=== PATIENT | female | born 1980 | race Caucasian/White ===

== ENCOUNTER 2020-07-11 13:10 | Outpatient (CLI) | payer OTHER, SELFPAY ==
--- NOTE | ~2020-07-11 | XR_ITS ---
EXAMINATION: XR foot LT min 3V, XR heel LT min 2V DATE: 07/11/2020 13:31 INDICATION: Left foot and heel pain post fall down stairs TECHNIQUE: 1. Dorsoplantar, two oblique and lateral views of the left foot were obtained. 2. Axial and lateral views of the left heel/calcaneus were obtained. COMPARISON: None. FINDINGS: Alignment is normal. No fracture. Joint spaces are normal. Soft tissues are unremarkable. No left ank le joint effusion. IMPRESSION: 1. Negative left foot and heel radiographs. Reviewed, dictated and finalized at location B. IMPRESSION: 1. Negative left foot and heel radiographs.
== END 2020-07-11 13:11 | disposition home or self-care (01) ==
PROVIDERS: PCP Internal Medicine; Visit Provider Internal Medicine
DX: M79.672 Pain in left foot (principal)
CPT/HCPCS: 73630; 73650

== ENCOUNTER 2021-07-04 09:27 | Outpatient (CLI) | payer OTHER, SELFPAY ==
--- NOTE | ~2021-07-04 | XR_ITS ---
EXAMINATION: XR knee RT 3V DATE: 07/04/2021 09:57 INDICATION: Right knee pain TECHNIQUE: Three views of the right knee were obtained. COMPARISON: None. FINDINGS: Alignment is normal. No fracture or osteochondral lesion. Joint spaces are normal with no e rosions. No joint effusion/synovitis. There is medial soft tissue swelling of the knee. IMPRESSION: 1. Medial soft tissue swelling of the knee without acute osseous abnormality. Reviewed, dictated and finalized at location B. 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
== END 2021-07-04 09:28 | disposition home or self-care (01) ==
LOC: CHSIMG 09:31
PROVIDERS: PCP Internal Medicine; Visit Provider Internal Medicine
DX: M25.561 Pain in right knee (principal)
CPT/HCPCS: 73562

== ENCOUNTER 2021-07-11 17:04 | Outpatient (RCR) | payer OTHER, SELFPAY ==
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
--- NOTE | 2021-08-14 17:42 | PTOPEVAL ---
Thank you for referring Demar Rondon to [facility].? The patient is scheduled to be seen for therapy? ____x/week for ___ weeks. Please review, sign, date and return this plan of care CACHORRO. I agree with and certify that the following plan of care is medically necessary. Referring Physician Date Admitting Provider: Attending Provider: Jaime Moran MD Referring Provider: *PT Outpatient Evaluation Start: 07/11/21 17:13 Freq: Status: Active Protocol: Document 08/14/21 17:00 [facility] (Rec: 08/14/21 17:41 [facility] [id number]) Therapy Assessment Status Assessment Status Assessment Status Re-evaluation Outpatient Past Medical History Cardiovascular History Hx Other Cardiac Disorders Yes: vaso spasms Musculoskeletal History Hx Other Musculoskeletal Disorders Yes: knee sprain, shoulder and foot surg Hematological History Hx Other Hematological Disorders Yes: immuno-defieciency Evaluation Information Problem Diagnosis R knee pain, ACL tear Onset 06/12/21 Subjective Information patient reports she had an MRI Query Text:As Reported By Patient/ of the R knee. she reports Family the results show a partial tear of the ACL. she reports she is instructed by her ortho to continue skilled PT 3x weekly for 2 more weeks prior to determining if she will need surgery. Pain Assessment Timing of Pain Assessment Timing of Pain Assessment Assessment Pain Scale Pain Scale Used Numeric (1 - 10) Self Report Pain Assessment Right Knee(s) Reported Pain Level 5 Greatest Pain Intensity 9 Pain Score Pain Score 5: Self Report Interventions Used Interventions Used By Clinicians Activity or ADL's,Education, Elevation,Exercise,Ice, Medication,Rest,Taping Lower Extremity Range of Motion General Lower Extremity Range of Motion Gross Lower Extremity Range of Motion 0-128 degrees arom R knee Comments mobility Lower Extremity Muscle Strength Testing General Lower Extremity Strength Gross Lower Extremity Strength 4+/5 R hip flexion 4/5 R hip abduction 4+/5 R knee flexion 5/5 R knee extension Muscle Length Testing Muscle Length Testing Left Hamstring Length 5 Query Text:(90 - 90 Position) Right Hamstring Length 5 Query Text:(90 - 90 Position) Palpation Assessment Palpation Palpation tenderness noted to the inferior R patella and the
--- NOTE | 2021-08-28 12:52 | PTOPEVAL ---
Thank you for referring Demar Rondon to [facility]. Please review, sign, date and return this plan of care CACHORRO. I agree with and certify that the following plan of care is medically necessary. Referring Physician Date Admitting Provider: Attending Provider: Jaime Moran MD Referring Provider: *PT Outpatient Evaluation Start: 07/11/21 17:13 Freq: Status: Active Protocol: Document 08/28/21 11:14 [facility] (Rec: 08/28/21 11:52 [facility] [email or web address]) Therapy Assessment Status Assessment Status Assessment Status Progress Outpatient Past Medical History Cardiovascular History Hx Other Cardiac Disorders Yes: vaso spasms Musculoskeletal History Hx Other Musculoskeletal Disorders Yes: knee sprain, shoulder and foot surg Hematological History Hx Other Hematological Disorders Yes: immuno-defieciency Evaluation Information Problem Diagnosis R knee pain, ACL tear Onset 06/12/21 Subjective Information Pt. reports that the right leg Query Text:As Reported By Patient/ is stronger. She reports Family that she still has episodes of the right knee giving out, but much less frequent. She states that pain is mild currently, but will incresae with activity. She reports that she does return to the doctor today. Pain Assessment Timing of Pain Assessment Timing of Pain Assessment Pre-Treatment Pain Scale Pain Scale Used Numeric (1 - 10) Self Report Pain Assessment Right Knee(s) Reported Pain Level 2 Lowest Pain Intensity 2 Greatest Pain Intensity 8 Pain Score Pain Score 2: Self Report Interventions Used Interventions Used By Clinicians Activity or ADL's,Exercise Lower Extremity Range of Motion General Lower Extremity Range of Motion Gross Lower Extremity Range of Motion 0-130 degrees right knee AROM Comments Lower Extremity Muscle Strength Testing General Lower Extremity Strength Gross Lower Extremity Strength -bilateral hip flexion 5/5 -bilateral hip abduction 4+/5 -bilateral knee flexion 5/5 -bilateral knee extension 5/5 -bilateral ankle dorsiflexion 5/5 -Performed single limb leg press test with pt. demonstrating 1 rep max of 240 # on the left and 250# on the right General Exercise General E
== END 2021-09-11 14:00 | disposition home or self-care (01) ==
LOC: CHSPT 17:04
PROVIDERS: PCP Internal Medicine; Visit Provider Internal Medicine
DX: M25.561 Pain in right knee (principal)
CPT/HCPCS: 97014; 97035; 97110; 97112; 97140; 97161; G0283

== ENCOUNTER 2021-07-12 12:26 | Outpatient (CLI) | payer OTHER, SELFPAY ==
--- NOTE | ~2021-07-12 | XR_ITS ---
EXAMINATION: XR chest 2V 07/12/2021 13:07 INDICATION: Dyspnea PROCEDURE: 2 view chest COMPARISON: 03/25/2019 FINDINGS: The lungs are clear. The cardiomediastinal silhouette is within normal limits. There are no pleural effusions. There is no pneumothorax suspected. IMPRESSION: 1: NO ACUTE CARDIOPULMONARY DISEASE. Reviewed, dictated and finalized at location B.
[2021-07-12 12:48] LABS: Basophils Absolute Auto 0.04 K/mm3 (0.00-0.10); Basophils Percent Auto 0.5 % (0.0-1.0); Eosinophils Absolute Auto 0.13 K/mm3 (0.02-0.50); Eosinophils Percent Auto 1.6 % (1.0-6.0); Hematocrit 43.6 % (35.0-49.0); Hemoglobin 14.9 g/dL (12.0-15.0); Immature Granulocyte Absolute 0.03 K/mm3 (0.00-0.00); Immature Granulocyte Percent A 0.4 % (0.0-0.0); Lymphocytes Absolute Auto 1.96 K/mm3 (1.10-4.50); Lymphocytes Percent Auto 24.2 % (18.0-42.0); Mean Corpuscular HGB Conc 34.2 g/dL (32.0-36.0); Mean Corpuscular Hemoglobin 31.4 pg (27.0-31.0); Mean Platelet Volume 10.7 fl (9.2-11.8); Monocytes Absolute Auto 0.74 K/mm3 (0.10-0.90); Monocytes Percent Auto 9.1 % (2.0-11.0); Neutrophils Absolute Auto 5.2 K/mm3 (1.7-7.2); Neutrophils Percent Auto 64.2 % (50.0-70.0); Platelet Count Result 263 K/mm3 (150-420); Red Blood Count 4.74 M/mm3 (4.20-5.40); Red Cell Distribution Width 11.7 % (11.6-14.4); White Blood Count 8.1 K/mm3 (4.8-10.8)
[2021-07-12 13:09] LABS: D Dimer 0.53 mg/L (0.19-0.50)
[2021-07-12 13:17] LABS: Alanine Aminotransferase 29 U/L (14-59); Albumin Level 3.9 g/dL (3.4-5.0); Alkaline Phosphatase 55 U/L (46-116); Anion Gap 9 mmol/L (8-16); Aspartate Amino Transferase 22 U/L (15-37); Bilirubin,Total 0.3 mg/dL (0.00-1.00); Blood Urea Nitrogen 7 mg/dL (7-18); CRP 1.3 mg/dL (0.0-0.9); Calcium 8.9 mg/dL (8.5-10.1); Carbon Dioxide 26 mmol/L (21-32); Chloride 104 mmol/L (98-108); Creatine Kinase 50 U/L (26-192); Estimated Glomerular Filt Rate > 60; Glucose 96 mg/dL (70-99); Osmolality Calculated 286 mOsm/kg (285-295); Potassium 3.4 mmol/L (3.5-5.1); Sodium 139 mmol/L (136-145); Total Protein 7.3 g/dL (6.4-8.2); Troponin I 5.5 ng/L (0.00-60.4)
== END 2021-07-12 12:27 | disposition home or self-care (01) ==
LOC: CHSLAB 12:28
PROVIDERS: PCP Internal Medicine; Visit Provider Nurse Practitioner Family
DX: R07.9 Chest pain, unspecified (principal); R06.02 Shortness of breath; J06.9 Acute upper respiratory infection, unspecified
CPT/HCPCS: 36415; 71046; 80053; 82550; 82553; 84484; 85025; 85380; 86140

== ENCOUNTER 2021-07-12 13:40 | Emergency (ER) | payer OTHER, SELFPAY ==
--- NOTE | ~2021-07-12 | CT_ITS ---
EXAMINATION: CTA chest PE protocol DATE: 07/12/2021 15:05 INDICATION: Shortness of breath and cough. Chest pain. TECHNIQUE: Computed tomography angiography (CTA) of the chest was performed with 100 mL Omnipaque-350 intravenous contrast timed to evaluate the pulmonary arteries. Coronal maximum intensity projection 3D-reconstructions were created by the technologist. Automated exposure control and iterative reconst ruction technique were employed. The dose-length product was 254.83 mGy-cm. COMPARISON: None. FINDINGS: There is mild scarring at the lung apices. No pleural effusion. The heart size is normal. N o pericardial effusion. There is no pulmonary embolus. There is mild thoracic spondylosis. IMPRESSION: 1. No pulmonary embolus. Reviewed, dictated and finalized at location A. IMPRESSION: 1. No pulmonary embolus.
[2021-07-12 13:45] VITALS: BP 135/93; PULSE 82; RESP 16; TEMP 36.6; O2SAT 99
--- NOTE | 2021-07-12 13:52 | ED.SOB ---
HPI - SOB/Dyspnea General Chief Complaint: Shortness of Breath/Dyspnea Stated Complaint: Elevated D Dimer Time Seen by Provider: 07/12/21 13:53 Source: patient and RN notes reviewed Mode of arrival: ambulatory Limitations: no limitations History of Present Illness HPI Narrative: Patient went to her primary care physician this morning for a cough. She had a workup done as an outpatient with some blood work and was found to have a very mildly elevated D-dimer. She sent to the emergency room to be evaluated for possible pulmonary embolism. She says that the rest of her family has been having a viral illness as well. She was concerned that her cough and illness had turned into pneumonia. She has been vaccinated for COVID. MD elicited complaint: shortness of breath (mild) and cough Pertinent past history: pneumonia Onset (ago): day(s) (4) Context: recent illness Timing: intermittent Severity: mild Exacerbating factors: exertion Relieving factors: nothing Associated symptoms: denies other symptoms Treatment prior to arrival: none Related Data Home oxygen amount: none Home Medications Medication Instructions Recorded Confirmed diltiazem HCl 120 mg PO DAILY 07/12/21 07/12/21 magnesium oxide 400 mg PO BID 07/12/21 07/12/21 meloxicam 15 mg PO DAILY 07/12/21 07/12/21 sumatriptan succinate 100 mg PO ONCE PRN 07/12/21 07/12/21 Allergies Allergy/AdvReac Type Severity Reaction Status Date / Time acetaminophen [Vicodin] Allergy Intermediate hives Verified 07/12/21 13:58 hydrocodone [Vicodin] Allergy Intermediate hives Verified 07/12/21 13:58 Review of Systems Review of Systems: All systems reviewed & are unremarkable except as noted in HPI and below PMFSH Past Medical History Medical History (Updated 07/12/21 @ 15:31 by Fox Ugarte MD) GERD (gastroesophageal reflux disease) (09/05/11) Migraine with aura (02/21/11) Recurrent sinusitis (02/21/11) Family History Family History Brother Family history of seizure disorder Mother Family history of type 2 diabetes mellitus Hypertension Exam Const: General: healthy appearing, no acute distress and alert Nutritional Appearance: well nourished Orientation/consciousness: patient oriented x3 Other: Female nurse in room during examination. HENMT: Head: normal to inspection Ears: external ears normal Eyes: Conjunctivae: conjunctivae normal Pupils: Equal, round and reactive pupils present EOM: EOMs intact bilaterally Neck: Neck: normal visual inspection Resp: Effort & Inspection: normal respiratory effort Auscultation: clear to auscultation bilaterally Cardio: Rate: regular rate Rhythm: regular rhythm GI: GI Palp: Yes Soft to palpation and No Tenderness to palpation present (GI) Auscultation: normal bowel sounds Back/Spine/Pelvis: Cervical Spine: cervical ROM normal Thoracic/Lumbar Spine: thoraco-lumbar ROM normal Skin: General skin exam: normal color Rashes: no rashes Neuro: General: patient oriented x3, moves all extremities, no meningeal signs, no focal motor deficits and CN's II-XI intact bilaterally Speech: normal speech Gait exam (Neuro): Normal gait present MDM - SOB/Dyspnea Medical Records Attestation: I reviewed the patient's medical records. Lab Data Attestation: I reviewed the patient's lab results. Imaging Data Radiologist's impression: no pulmonary embolism Discharge Plan Discharge Clinical Impression: Bronchitis Patient Disposition: Home, Self-Care Condition: Stable Instructions: Acute Bronchitis (ED), Antibiotic Form Additional Instructions: can use [id number] cough and cold medication as needed. Prescriptions: No Action sumatriptan succinate 100 mg Tablet 100 mg PO ONCE PRN (Reason: Pain) RF: 0 meloxicam 15 mg tablet 15 mg PO DAILY RF: 0 diltiazem HCl 240 mg capsule,extended release 24 hr 120 mg PO DAILY RF: 0 magnesium oxide 400 mg
[2021-07-12 15:35] VITALS: BP 127/88; PULSE 74; RESP 16; TEMP 36.4; O2SAT 99
== END 2021-07-12 15:40 | disposition home or self-care (01) ==
PROVIDERS: Emergency Provider Emergency Medicine; PCP Internal Medicine
DX: J40 Bronchitis, not specified as acute or chronic (principal)
CPT/HCPCS: 71275; 99284; Q9967

== ENCOUNTER 2021-08-03 06:44 | Outpatient (CLI) | payer OTHER, SELFPAY ==
--- NOTE | ~2021-08-03 | MR_ITS ---
EXAMINATION: MR knee RT wo con DATE: 08/03/2021 08:42 INDICATION: Right knee pain, twisting injury on 06/12/2021, medial and lateral pain. TECHNIQUE: Magnetic resonance imaging (MRI) of the knee was performed without intravenous contrast. S equences included axial PD-weighted FS FSE, coronal PD-weighted FSE and PD-weighted FS FSE, sagittal PD-weighted FSE, and sagittal T2-weighted FS FSE. COMPARISON: None. FINDINGS: Medial compartment: Meniscus intact. Cartilage intact. Lateral compartment: Meniscus intact. Cartilage intact. Patellofemoral compartment: Cartilage intact. Extensor mechanism and retinaculum intact. Ligaments and tendons: High signal within an otherwise intact appearing ACL. The PCL, LCL, and MCL are normal and intact. Fluid: No significant joint effusion. Osseous/other: Focal marrow edema, deep to the tibial spines. IMPRESSION: 1. Partial ACL tear. 2. Reactive marrow change versus contusion deep to the tibial spines. Reviewed, dictated and finalized at location K.
== END 2021-08-03 06:45 | disposition home or self-care (01) ==
PROVIDERS: PCP Internal Medicine; Visit Provider Internal Medicine
DX: M25.561 Pain in right knee (principal)
CPT/HCPCS: 73721

== ENCOUNTER 2022-03-25 16:54 | Outpatient (RCR) | payer OTHER, SELFPAY ==
--- NOTE | 2022-03-25 18:11 | PTOPEVAL1 ---
Assessment and note entered by Lis Hernandez DPT Evaluation Information Assessment Status Evaluation Diagnosis R knee pain, s/p MPFL reconstruction Onset 03/06/2022 Subjective Information Pt reports that in 05/2021 she was standing and felt a twisting in her R knee with a pop. Her pain did not improve over time and with PT. After awhile, they performed an MRI and saw medial patellofemoral pain syndrome. After awhile, she felt that surgery was the best option for pain. She has been taking some oxycodin for pain. She reports that pain has been high lately. She was using a cane after surgery but has since stopped for over a week. She still reports some popping in the knee. She notes that her knee still feels unstable after this. She reports no restrictions listed by her MD, but she reports she has been instructed to always wear her brace when weight bearing. She reports that her knee and ankle have been swollen since surgery. She reports most pain when turning her foot in. Pain is felt along the medial knee and over the knee cap, and these are where her incisions are. Her goal is to improve stability as needed for hiking, camping, and running. Reported Pain Level Pain Score 5: Self Report Assessment PT Clinical Summary Pt presents to PT s/p R knee surgery with R knee pain and demonstrates decreased range of motion in flexion, decreased strength, increased knee edema , and antalgic gait. These deficits make it more challenging for her to move her knee as needed for walking, lifting her leg, and using stairs. She was provided with an HEP focused on improving strength and mobility within her tolerance. She will benefit from skilled PT to facilitate symptom relief, improve the aforementioned impairments, and return to functional and recreational activities. Plan of Care Interventions Electrical Stimulation,Gait Training,Hot Pack/Cold Pack,Intermittent Compression,Manual Therapy, Neuro Re-education,Therapeutic Activities, Therapeutic Exercise PT Services Indicated Yes Treatment Frequency and 3x week for 12 visits Duration These treatments will address the objective and functional deficits as defined above. The patient will be advanced safely and appropriately in order for the patient to progress towards his/her prior level of function. Additional exercises will
--- NOTE | 2022-05-06 09:01 | PTOPPROG ---
Assessment and note entered by Liliya Dickerson, PT Evaluation Information Assessment Status Progress Diagnosis R knee pain, s/p MPFL reconstruction Onset 03/06/22 Subjective Information Demar reports she had her right knee give out on 05/02/21 after leaving her PT appointment. She states she was squatting down to brick picker a quarter that she dropped and as she descended her knee gave out and she ended up bending her knee more than she has since surgery. She reports her knee has had more pain all weekend and she had to sit a lot and use ice a lot. She rates pain 7/10 currently and it was a 9/10 over the weekend. She had to use pain medication over the weekend as well. Assessment PT Clinical Summary Demar Rondon has completed 12 skilled PT visits following a right MPFL reconstruction performed on 03/06/22. She is reporting an increase in right knee pain since 05/02/22 when she went to brick picker a quarter from the ground and her knee gave out causing it to bend more than she had been since surgery. She objectively demonstrates good stability with valgus and varus stress testing and lachmann testing of the right knee. She is demonstrating increased tenderness on the right patella tendon and continues to have tenderness at the medial knee joint incision site. She also has had a slight regression in right knee AROM today secondary to the increased pain, right knee AROM is improved overall though. She does demonstrate steady improvements in right LE strength but still is limited in the quadriceps and the gluteals. She also continues to have deficits in gait, dynamic right single limb balance, and functional strength. She will continue to benefit from skilled PT to further address thes physical and functional limitations. She will see her surgeon again on 05/14/22. Plan of Care Interventions Electrical Stimulation,Hot Pack/Cold Pack,Patient/ Caregiver Educati,Therapeutic Activities, Therapeutic Exercise PT Services Indicated Yes Treatment Frequency and 2 times a week for 12 more visits Duration These treatments will address the objective and functional deficits as defined above. The patient will be advanced safely and appropriately in order for the patient to progress towards his/her prior level of function. Additional exercises will be introduced and as well as a comprehensive home exercise program upon discharge, if needed, ?to ensure cash
--- NOTE | 2022-06-16 15:57 | PTOPREEVAL ---
Assessment and note entered by Nirmala Garcia DPT Evaluation Information Assessment Status Re-evaluation Diagnosis R knee pain, s/p MPFL reconstruction Onset 03/06/22 Subjective Information Demar reports that she was standing and turned directions on 05/21/22 and sprained her MCL. She reports that she had a lot of soreness afterwards but has improved since then. She reports improvement with squatting, standing up and walking. She continues to report difficulty with stair navigation. She saw MD today who recommended continued PT until follow up in one month. Reported Pain Level Pain Score 2: Self Report Assessment PT Clinical Summary Demar Rondon has completed 10 during [facility] re- evaluation period from 05/07/22-06/16/22. She had an increase in pain following MCL sprain on 05/21/22 but has reported improvements since. She demonstrates improved R knee flexion and extension but continues to demonstrate pain and decreased strength impairing her ability to navigate stairs and ambulate prolonged periods. She would benefit from continued skilled PT to address impairments and return to PLOF. Plan of Care Interventions Electrical Stimulation,Hot Pack/Cold Pack,Patient/ Caregiver Educati,Therapeutic Activities, Therapeutic Exercise PT Services Indicated Yes Treatment Frequency and 2 times a week for 10 more visits Duration These treatments will address the objective and functional deficits as defined above. The patient will be advanced safely and appropriately in order for the patient to progress towards his/her prior level of function. Additional exercises will be introduced and as well as a comprehensive home exercise program upon discharge, if needed, ?to ensure carryover of functional gains achieved in the clinic. This treatment plan has been reviewed and agreement upon by the patient.
== END 2022-06-26 09:38 | disposition still patient (30) ==
LOC: CHSPT 16:54
PROVIDERS: PCP Internal Medicine; Visit Provider Nurse Practitioner Family
DX: Z48.89 Encounter for other specified surgical aftercare (principal); M22.2X1 Patellofemoral disorders, right knee
CPT/HCPCS: 97014; 97016; 97110; 97112; 97116; 97140; 97161; 97530; G0283

== ENCOUNTER 2022-07-01 07:56 | Outpatient (RCR) | payer OTHER, SELFPAY ==
--- NOTE | 2022-07-22 09:19 | PTOPEVAL1 ---
Assessment and note entered by JT File, PT Evaluation Information Assessment Status Re-evaluation Diagnosis R knee pain, s/p MPFL reconstruction Onset 03/06/22 Subjective Information patient reports her pain a 3/10 today. she continues to use the R knee brace. patient reports she has the most pain and issues with going up and down steps, running on the treadmill, pivoting in the kitchen while doing the dishes, and straightening it out fully without help. patient has orders to continue therapy per the surgeon. Reported Pain Level Pain Score 3: Self Report Assessment PT Clinical Summary mrs. thomas presents to skilled PT with continued pain in the R knee. she continues to display weakness in the R knee compared to L knee with manual muscle testing, and with functional strength testing on the leg press. she presents with full R knee mobility, but pain/tenderness with palpation of the patella and medial knee. she also presents with positive special tests that may indicate a meniscus involvement now from one of her post surgcial falls/re-injury. she presents with orders from her surgeon to continue skilled PT, and due to her weakness, pain, and abnormal gait, she would benefit from continued skilled PT Plan of Care Interventions Gait Training,Manual Therapy,Neuro Re-education, Patient/Caregiver Educati,Therapeutic Activities, Therapeutic Exercise PT Services Indicated Yes Treatment Frequency and continue skilled PT 2x weekly for 8 more visits Duration These treatments will address the objective and functional deficits as defined above. The patient will be advanced safely and appropriately in order for the patient to progress towards his/her prior level of function. Additional exercises will be introduced and as well as a comprehensive home exercise program upon discharge, if needed, ?to ensure carryover of functional gains achieved in the clinic. This treatment plan has been reviewed and agreement upon by the patient.
== END 2022-08-18 16:59 | disposition home or self-care (01) ==
LOC: CHSPT 07:56
PROVIDERS: PCP Internal Medicine; Visit Provider Nurse Practitioner Family
DX: Z48.89 Encounter for other specified surgical aftercare (principal); M22.2X1 Patellofemoral disorders, right knee
CPT/HCPCS: 97014; 97110; 97112; 97530; G0283

== ENCOUNTER 2022-07-28 14:19 | Outpatient (CLI) | payer OTHER, SELFPAY ==
--- NOTE | ~2022-07-28 | XR_ITS ---
EXAMINATION: XR sinus min 3V INDICATION: Sinus pressure TECHNIQUE: Five views of the paranasal sinuses are obtained. COMPARISON: None available FINDINGS: The frontal sinuses are small in size. The remaining paranasal sinuses appear to be well ae rated. No definite sinus opacification is identified. There are 3 mm of leftward deviation of the hector al septum. The facial bones are unremarkable. The orbits appear normal. IMPRESSION: 1. No definite sinus disease detected. If there is high clinical suspicion for sinus disease, further evaluation with CT of the sinuses is recommended. Reviewed, dictated and finalized at location B.
== END 2022-07-28 14:20 | disposition home or self-care (01) ==
LOC: CHSIMG 14:21
PROVIDERS: PCP Internal Medicine; Visit Provider Internal Medicine
DX: J32.9 Chronic sinusitis, unspecified (principal)
CPT/HCPCS: 70220

== ENCOUNTER 2022-12-03 09:30 | Outpatient (RCR) | payer OTHER, SELFPAY ==
[2022-11-11 10:54] VITALS: BMI 30.6
[2022-12-03 09:30] VITALS: BMI 29.5
[2022-12-03 09:56] VITALS: BMI 29.5
== END 2023-02-02 12:54 | disposition home or self-care (01) ==
LOC: ANHDMC 09:30
PROVIDERS: PCP Internal Medicine; Visit Provider Internal Medicine
DX: R63.5 Abnormal weight gain (principal); Z71.3 Dietary counseling and surveillance
CPT/HCPCS: 97802; 97803

== ENCOUNTER 2022-12-15 10:50 | Outpatient (CLI) | payer OTHER, SELFPAY ==
--- NOTE | ~2022-12-15 | XR_ITS ---
EXAMINATION: XR ankle LT min 3V DATE: 12/15/2022 11:20 INDICATION: Left ankle pain TECHNIQUE: Anteroposterior, lateral, mortise, and additional oblique view of the ankle were obtained. COMPARISON: None. FINDINGS: There is lateral soft tissue swelling of ankle. Bone alignment is normal. There is no fract ure. The joint spaces are normal. IMPRESSION: 1. Lateral soft tissue swelling of ankle without acute osseous abnormality. Reviewed, dictated and finalized at location A.
--- NOTE | ~2022-12-15 | XR_ITS ---
EXAMINATION: XR knee RT 3V DATE: 12/15/2022 11:20 INDICATION: Anterior right knee pain. Fall. TECHNIQUE: 3 views of right knee were obtained. COMPARISON: None. FINDINGS: Bone alignment is normal. No fracture. There is mild osteoarthritis of medial and patellofe moral compartments characterized by tiny osteophytes. No joint space narrowing. No knee joint effusio n. IMPRESSION: 1. Mild right knee osteoarthritis. Reviewed, dictated and finalized at location A.
== END 2022-12-15 10:51 | disposition home or self-care (01) ==
PROVIDERS: PCP Internal Medicine; Visit Provider Internal Medicine
DX: S93.402A Sprain of unspecified ligament of left ankle, initial encounter (principal); S89.81XA Other specified injuries of right lower leg, initial encounter; M17.11 Unilateral primary osteoarthritis, right knee; M79.89 Other specified soft tissue disorders
CPT/HCPCS: 73562; 73610

== ENCOUNTER 2023-01-02 13:04 | Outpatient (RCR) | payer OTHER, SELFPAY ==
--- NOTE | 2023-01-09 08:38 | OPREHPOC ---
Outpatient Therapy Plan of Care This is a Multidisciplinary Plan of Care that may contain components documented by all disciplines (PT, OT, and ST.) PT Problem 1 PT Problem #1 Knowledge Deficit PT Goal 1 Goal 1. Patient to demonstrate independence with HEP to improve progress made in PT. Target Visit 4 PT Problem 2 PT Problem #2 Impaired Range of Motion PT Goal 1 Goal 1. Patient to achieve 130 degrees of active R knee flexion to improve ability to squat to ground to reach objects on floor. 2. Patient to improve bilateral hamstring length to lacking no more than 5 degrees to improve flexibility for reaching to don socks. Target Visit 8 PT Problem 3 PT Problem #3 Impaired Strength PT Goal 1 Goal 1. Patient to achieve at least 4+/5 R knee extension strength to improve ability to climb stairs. 2. Patient to achieve 5/5 R knee flexion and R hip flexion strength to improve ability to lift heavy duffel bag for camping trips. Target Visit 8 PT Problem 4 PT Problem #4 Pain PT Goal 1 Goal 1. Patient to report pain as 2/10 or less at worst with all activities to allow for return to daily life in home and community. Target Visit 8 PT Problem 5 PT Problem #5 Impaired Functional Mobil PT Goal 1 Goal 1. Patient to improve LEFS score to no more than 20% to improve quality of life. 2. Patient to report ability to climb stairs into camper without difficulty or increase in pain. 3. 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 Target Visit 8
--- NOTE | 2023-01-09 08:39 | PTOPEVAL1 ---
Assessment and note entered by JT File, PT Evaluation Information Assessment Status Evaluation Diagnosis R knee pain Onset 12/14/22 Subjective Information Patient reports she had knee surgery last February replacing the MPFL. She notes that a few weeks ago she tripped coming down the stairs of her camper, reinjuring the R knee and twisting the L ankle. She notes she visited the doctor following the injury, she recieved x-rays for both the R knee and L ankle showing no fractures. She reports swelling underneath the knee cap and along the incision from surgery. She notes that before the injury, she had no R knee pain and was able to walk at a fast pace for 30 minutes without issues. Since reinjury, she notes difficulty with stair climbing, standing for periods of time, bending the knee, and making quick turns. She notes discomfort when the knee remains in a straight position for too long. Her L ankle has been improving since the injury and she notes this does not limit her. She has been using ice and pain medications to treat the knee pain. Reported Pain Level Pain Score 2: Self Report Assessment PT Clinical Summary Mrs. Rondon is a 42 y/o female who presents to skilled PT to address R knee pain. Patient demonstrates limitations in R knee ROM, LE strength, and flexibility. She reports difficulty with daily activities such as walking longer distances, remaining in static knee positions, and with climbing stairs. Patient currently has 39% functional decline as assessed by the LEFS. She previously had surgery to repair the MPFL in the knee in 2021. Appropriate to continue skilled PT to address strength, ROM, and functional deficits in order to improve patient's quality of life and return to daily activities. Plan of Care Interventions Electrical Stimulation,Gait Training,Hot Pack/Cold Pack,Manual Therapy,Neuro Re-education,Patient/ Caregiver Educati,Therapeutic Activities, Therapeutic Exercise PT Services Indicated Yes Treatment Frequency and 2x/week for 8 visits Duration These treatments will address the objective and functional deficits as defined above. The patient will be advanced safely and appropriately in order for the patient to progress towards his/her prior level of function. Additional exercises will be introduced and as well as a comprehensive home exercise program upon discharge, if nee
--- NOTE | 2023-01-29 11:56 | PTOPPROG ---
Assessment and note entered by Liliya Dickerson, PT Evaluation Information Assessment Status Progress Diagnosis R knee pain Onset 12/14/22 Subjective Information Demar Rondon reports her right knee feels tight and swollen still. She also continues to have more pain at night which makes it hard to sleep. She still notes difficulty bending the right knee and that makes stairs difficult. She is able to walk on her treadmill at a slower pace for 15-30 minutes. She is able to ride a recumbent bike at home for 40 minutes. She feels she has improved 20 % overall since initiating PT. Assessment PT Clinical Summary Demar Rondon has completed 8 skilled PT sessions for right knee pain. She is reporting very little change in right knee symptoms since initiating PT. She feels it has improved 20% overall but she still has difficulty with stairs, bending the right knee, walking more than 30 minutes, and with swelling. She objectively demonstrates improved right knee hip flexion and knee flexion and extension strength however, she continues to have tenderness at the right patella tendon and medial knee joint line, pain with active knee flexion, decreased right knee flexion AROM, decreased right knee and hip strength, impaired gait, and pain with the Apley's compression test in internal rotation. She will be put on hold from formal PT and was instructed to follow up with her referring physician. Plan of Care Interventions Electrical Stimulation,Hot Pack/Cold Pack,Manual Therapy,Neuro Re-education,Therapeutic Activities, Therapeutic Exercise PT Services Indicated Yes Treatment Frequency and The patient is on hold until follow up with Duration physician. These treatments will address the objective and functional deficits as defined above. The patient will be advanced safely and appropriately in order for the patient to progress towards his/her prior level of function. Additional exercises will be introduced and as well as a comprehensive home exercise program upon discharge, if needed, ?to ensure carryover of functional gains achieved in the clinic. This treatment plan has been reviewed and agreement upon by the patient.
--- NOTE | 2023-01-29 11:56 | OPREHPOC ---
Outpatient Therapy Plan of Care This is a Multidisciplinary Plan of Care that may contain components documented by all disciplines (PT, OT, and ST.) PT Problem 1 PT Problem #1 Knowledge Deficit PT Goal 1 Goal 1. Patient to demonstrate independence with HEP to improve progress made in PT. Target Visit 4 Progress Met PT Problem 2 PT Problem #2 Impaired Range of Motion PT Goal 1 Goal 1. Patient to achieve 130 degrees of active R knee flexion to improve ability to squat to ground to reach objects on floor. 2. Patient to improve bilateral hamstring length to lacking no more than 5 degrees to improve flexibility for reaching to don socks. Target Visit 8 Progress Not Met PT Problem 3 PT Problem #3 Impaired Strength PT Goal 1 Goal 1. Patient to achieve at least 4+/5 R knee extension strength to improve ability to climb stairs. -not met 2. Patient to achieve 5/5 R knee flexion and R hip flexion strength to improve ability to lift heavy duffel bag for camping trips. -met Target Visit 8 Progress Partially Met PT Problem 4 PT Problem #4 Pain PT Goal 1 Goal 1. Patient to report pain as 2/10 or less at worst with all activities to allow for return to daily life in home and community. Target Visit 8 Progress Not Met PT Problem 5 PT Problem #5 Impaired Functional Mobil PT Goal 1 Goal 1. Patient to improve LEFS score to no more than 20% to improve quality of life. -progress towards, not met 2. Patient to report ability to climb stairs into camper without difficulty or increase in pain. - partially met 3. 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 -met Target Visit 8 Progress Partially Met
== END 2023-01-29 23:59 | disposition home or self-care (01) ==
LOC: CHSPT 13:04
PROVIDERS: PCP Internal Medicine; Visit Provider Internal Medicine
DX: M25.561 Pain in right knee (principal); Z98.890 Other specified postprocedural states
CPT/HCPCS: 97014; 97110; 97112; 97140; 97161; 97530; G0283

== ENCOUNTER 2023-02-11 09:27 | Outpatient (RCR) | payer OTHER, SELFPAY ==
[2023-02-11 09:32] VITALS: BMI 29.7
[2023-02-11 09:40] VITALS: BMI 29.7
== END 2023-02-12 08:38 | disposition home or self-care (01) ==
LOC: ANHDMC 09:27
PROVIDERS: PCP Internal Medicine; Visit Provider Internal Medicine
DX: R63.5 Abnormal weight gain (principal); Z68.30 Body mass index [BMI] 30.0-30.9, adult; Z71.3 Dietary counseling and surveillance
CPT/HCPCS: 97803

== ENCOUNTER 2024-07-02 06:38 | Outpatient (CLI) | payer OTHER, SELFPAY ==
--- NOTE | ~2024-07-02 | MR_ITS ---
EXAMINATION: MR brain/brain stem wo con DATE: 07/02/2024 08:01 INDICATION: Headache. Anisocoria. TECHNIQUE: Magnetic resonance imaging (MRI) of the brain and brainstem was performed without intraven ous contrast. COMPARISON: None. FINDINGS: There is no intracranial hemorrhage, acute infarction, or abnormal intracranial mass lesion . The ventricles are normal in size. The orbits are normal. There is mild mucosal thickening in the p aranasal sinuses. There is a trace right mastoid effusion. IMPRESSION: 1. Normal brain. Reviewed, dictated and finalized at location A. UNITY DEVELOPMENT TECHNICIAN IMPRESSION: 1. Normal brain.
--- OUTSIDE RECORDS SUMMARY | 2024-07-02 06:41 | XMS_ITS | Encounter Summary ---
Author Name [facility] [place] [facility] [place] [facility] [place] Address [address] [place] [address] Care Team Providers Care Television Receiver Analyzer Name Role Phone LUTHER MELLO Primary Care Provider Unavailabl e Insurance Providers: All historical and current Section Date Range: From patient's date of to the date document was created. This section includes the names of all active insurance providers for the patient. Insurance Provider Type of Coverage Plan Name Start of Policy Coverage End of Policy Coverage Group Number Member ID Insurance Provider's Telephone Number Policy Littlejohn's Name Patient's Relationship to Policy Littlejohn Selected Encounter This section includes the information on record at [place] for the Encounter. Date/Time Encounter Type Encounter Description Reason Provider Source Mar 01, 2024 08:00 AM PSYTX W PT 60 MINUTES [facility] ICD-10-CM F43.12 Post-traumatic stress disorder, chronic PEEK,CHRISTIANO E Encounter Template Text not used by [place] Assessments - Encounter Diagnoses This section includes the primary and secondary diagnoses documented for the Encounter. Date/Time Primary/Secondary Diagnosis Diagnosis Name Provider Source Mar 16, 2024 07:10 AM PRIMARY Post-traumatic stress disorder, chronic PEEKCHRISTIANO [facility] Plan of Treatment: Future Appointments (+ 6 months) and Future Tests (+/- 45 days) The Plan of Treatment section includes future care activities for the patient from all [place] treatment[place]. This section includes future appointments and future orders which are active, pending or scheduled. Future Appointments This section includes appointments that were scheduled to occur 6 months from the date of the Encounter, up to a maximum of 20 appointments. The data comes from all [place] treatment facilities. Appointment Date/Time Appointment Type Appointme nt Facility Name Mar 09, 2024 02:00 PM [facility]ORY [facility] Mar 25, 2024 02:00 PM AMBULATORY - PS[facility]CHIATRY [facility] Apr 22, 2024 09:00 AM AMBULATORY - PSYCHIATRY [facility] May 06, 2024 09:00 AM AMBULATORY - PSYCHIATRY [facility] Jun 03, 2024 08:00 AM AMBULATORY PSYCHIATRY [facility] Jul 05, 2024 09:00 AM AMBULATORY PSYCHIATRY [facility] Lab Results: +/- 30 days of the encounter This section includes the Chemistry and Hematology Lab Results on record with [place] for the patient. Radiology Reports and Pathology Reports are provided separately, in subsequent sections. Lab Results This section contains the Chemistry/Hematology Results that were resulted 30 days before or 30 daysafter the date of the Encounter. Date/Time Source Result Type Result - Unit Interpretation Reference Range Comment Mar 09, 2024 01:49 PM [facility] URANIUM OUTPATIENT SPOT URINE Specimen Type: URINE, SPOT No comment entered. Ordering Provider: ME ANGELIKA ANTON Report Released Date/Time: Mar 14, 2024 05:40 AM Reporting Lab: [place] [id number] Performing Lab: [address] [id number] VOLUME 119 mL CREATININE (C0NC) 29.33 mg/dL 20-320 ELAPSED TIME spot RATIO URANIUM/CRE 0.0218 0.001-0.050 RATIO U235/U238 BELOW DETECTION LIMIT 0.006-0.009 URANIUM (ACCOUNT EXECUTIVE TRAINEE) 0.0064 ug/L 0-0.0580 Social History: Smoking Status (Most current) and Tobacco Use (All prior to encounter date) This section includes the most current, and the historical, smoking and tobacco- related health factors from the [place] facility where the Encounter took place. Current Smoking Status This section includes the most current smoking, or tobacco-related health factor, from the [place] facility where the Encounter took place. Date/Time Current Smoking Status Comment Stalin jin September 11, 2023 08:30 AM VA-TOBACCO NEVER USED [facility] Encounter Notes: All associated encounter notes This section contains the clinical notes associated to the Encounter. Date/Time Encounter Note(s) Provider Source Mar 01, 2024 07:52 AM MENTAL HEALTH NOTE : LOCAL TITLE: MENTAL HEALTH/TREATMENT NOTE STANDARD TITLE: MENTAL HEALTH NOTE DATE OF NOTE: MAR 01, 2024@07:52 ENTRY DATE: MAR 01, 2024@07:52:21 AUTHOR: CHRISTIANO JULIO EXP COSIGNER: URGENCY: STATUS: COMPLETED Telehealth Disclosure: Visit conducted by synchronous telehealth. verbal consent obtained. Location/emergency number confirmed. Environment surveyed and all participants identified. Virtual conference room locked. Reason For Visit: CPT Session 5 Patient address during visit: Home [id number] [place] [address] Emergency number confirmed: PATIENT CELL PHONE - ----- Cognitive Processing Therapy: Re-write Event Session Time in session (in minutes): 53 SESSION NUMBER: 5 SESSION FORMAT Video Telehealth Session SESSION LOCATION Other location Specify: The provider is located in [facility] DIAGNOSIS: Primary (focus of treatment): Post Traumatic Stress Disorder ASSESSMENT: Date Instrument Raw Trans Scale 02/16/2024 08:00 PCL-5 WEEKLY 25 PCL-5 02/02/2024 14:00 PCL-5 WEEKLY 29 PCL-5 No data available PCL-5 Weekly The score was 24. CHANGE IN SCORE (PCL or PHQ9) CHANGES IN ASSESSMENT SCORES FROM EARLIER ADMINISTRATIONS: The 's score was down 1 point relative to last session's score RISK INFORMATION The was not a risk to herself or others MENTAL STATUS/BEHAVIORAL OBSERVATIONS The was on time for the scheduled [facility] appointment. She was appropriately dressed and neatly groomed. She was alert and fully oriented. The was pleasant and cooperative for the session. Energy was appropriate to the session. Mood was mildly anxious with a less restricted affect. Thought processes were clear and goal-directed; thought content was relevant. There was no evidence of AV hallucinations at the time of the session. No evidence of delusions. Attention and concentration were adequate for the session. Judgment and insight were good. The denied plans to harm herself or others. There was no evidence to suggest the was in imminent danger at the time of the session. SESSION CONTENT: The Arnett completed the rewrite of Trauma Event session of Cognitive Processing Therapy (CPT) for PTSD. The following therapy components were addressed: -Therapist reviewed completed A-B-C Worksheets with Arnett and helped the Arnett challenge distorted beliefs. -Therapist targeted cognitions about blame and/or guilt for cognitive restructuring using Socratic Questioning. -Therapist introduced the Challenging Questions to aid in challenging stuck points. PRACTICE ASSIGNMENT -Therapist assigned stuck points to be challenged from the Stuck Point Log. Arnett was asked to complete at least one Challenging Questions (CQ) Worksheet each day. PLAN Next session planned for agreed upon date/time of: 03/15/24 at 8a /eric/ CHRISTIANO JULIO PSYD LICENSED CLINICAL PSYCHOLOGIST Signed: 03/16/2024 07:10 CHRISTIANO JULIO [facility]
--- OUTSIDE RECORDS SUMMARY | 2024-07-02 06:41 | XMS_ITS | Encounter Summary ---
Author Organization [facility] Address [address] [place] [address] Phone Care Team Providers Care Health Systems Analyst Name Role Phone Jaime Moran MD Primary Care Provider [phone] Encounter Details Date Type Department Care Team (Latest Contact Info) Description 08/15/2020 Orders Only [facility] Scanning, Provider Social History Tobacco Use Types Packs/Day Years Used Date Smoking Tobacco: Never Smokeless Tobacco: Never Comments Unknown Sex and Gender Information Value Date Recorded Sex Assigned at Not on file Legal Sex Female 12:34 PM CDT Gender Identity Female 08/24/2020 1:03 PM CDT Sexual Orientation Not on file documented as of this encounter Plan of Treatment Not on file documented as of this encounter Procedures Procedure Name Priority Date/Time Associated Diagnosis Comments SCAN - LABS 08/15/2020 documented in this encounter Results * SCAN - LABS (08/15/2020) us Provider Scanning Final Result documented in this encounter Visit Diagnoses Not on filedocumented in this encounter Care Teams Health Systems Analyst Relationship Specialty Start Date End Date Jaime Moran MD PCP - General 04/06/20 documented as of this encounter
--- OUTSIDE RECORDS SUMMARY | 2024-07-02 06:41 | XMS_ITS | Encounter Summary ---
Author Name [facility] [place] [facility] [place] [place] Address [address] [place] [address] Care Team Providers Care Corn Detasseler Name Role Phone LUTHER MELLO Primary Care [...] section includes the information on record at [place] for the Encounter. Date/Time Encounter Type Encounter Description Reason Provider Source Mar 25, 2024 02:00 PM PSYTX W PT 45 MINUTES [facility] - IND ICD-10-CM F43.12 Post-traumatic stress disorder, chronic PEEK,CHRISTIANO E Encounter Template Text not used by [place] Assessments - Encounter Diagnoses This section includes the primary and secondary diagnoses documented for the Encounter. Date/Time Primary/Secondary Diagnosis Diagnosis Name Provider Source Mar 25, 2024 05:20 PM PRIMARY Post-traumatic stress disorder, chronic [facility] Plan of Treatment: Future Appointments (+ 6 [...] 20 appointments. The data comes from all [place] treatment facilities. Appointment Date/Time Appointment Type Appointme nt Facility Name Apr 22, 2024 09:00 AM AMBULATORY - PS[facility]CHIATRY [facility] May 06, 2024 09:00 AM AMBULATORY - PSYCHIATRY [facility] Jun 03, 2024 08:00 AM AMBULATORY - PSYCHIATRY [facility] Jul 05, 2024 09:00 AM AMBULATORY - PS[facility]CHIATRY [facility] September 02, 2024 08:30 AM AMBULATORY - NONE [facility] September 09, 2024 08:30 AM AMBULATORY - MEDICINE [facility] Lab Results: +/- 30 days of the encounter This section includes the Chemistry and Hematology Lab Results on record with [place] for the patient. Radiology Reports and Pathology Reports are provided separately, in subsequent sections. Lab Results This section contains the Chemistry/Hematology Results that were resulted 30 days before or 30 daysafter the date of the Encounter. Date/Time Source Result Type Result - Unit Interpretation Reference Range Comment Mar 09, 2024 01:49 PM [facility] STUDY URANIUM OUTPATIENT SPOT URINE Specimen Type: URINE, SPOT No comment entered. Ordering Provider: ME ANGELIKA ANTON Report Released Date/Time: Mar 14, 2024 05:40 AM Reporting Lab: [id number] Performing Lab: [address] [id number] VOLUME 119 mL CREATININE (C0NC) 29.33 mg/dL 20-320 ELAPSED TIME spot RATIO URANIUM/CRE 0.0218 0.001-0.050 RATIO U235/U238 BELOW DETECTION LIMIT 0.006-0.009 URANIUM (CARD PROCESSING CLERK) 0.0064 ug/L 0-0.0580 Social History: Smoking Status (Most current) and Tobacco Use (All prior to encounter date) This section includes the most current, and the historical, smoking and tobacco- related health factors from the [place] facility where the Encounter took place. Current Smoking Status This section includes the most current smoking, or tobacco-related health factor, from the [place] facility where the Encounter took place. Date/Time Current Smoking Status Comment Stalin jin September 11, 2023 08:30 AM VA-TOBACCO NEVER USED [facility] Encounter Notes: All associated encounter notes This section contains the clinical notes associated to the Encounter. Date/Time Encounter Note(s) Provider Source Mar 25, 2024 02:08 PM MENTAL HEALTH NOTE : LOCAL TITLE: MENTAL HEALTH/TREATMENT NOTE STANDARD TITLE: MENTAL HEALTH NOTE DATE OF NOTE: MAR 25, 2024@14:08 ENTRY DATE: MAR 25, 2024@14:08:32 AUTHOR: CHRISTIANO JULIO EXP COSIGNER: URGENCY: STATUS: COMPLETED Cognitive Processing Therapy: Challenging Questions Session Time in session (in minutes): SESSION NUMBER: 6 SESSION FORMAT Other SESSION LOCATION Other location Specify: The provider is located in [facility] DIAGNOSIS: Primary (focus of treatment): Post Traumatic Stress Disorder ASSESSMENT: Date Instrument Raw Trans Scale 03/01/2024 08:00 PCL-5 WEEKLY 24 PCL-5 02/16/2024 08:00 PCL-5 WEEKLY 25 PCL-5 No data available PCL-5 Weekly The score was 31. CHANGE IN SCORE (PCL or PHQ9) CHANGES IN ASSESSMENT SCORES FROM EARLIER ADMINISTRATIONS: The 's score increase 6 points. This was consistent with her report of having felt dread regarding focusing on the index trauma. RISK INFORMATION The was not a risk to herself or others MENTAL STATUS/BEHAVIORAL OBSERVATIONS The was on time for the scheduled [facility] appointment. She was appropriately dressed and neatly [...] time of the session. SESSION CONTENT: The completed the Challenging Questions Session of Cognitive Processing Therapy (CPT). The following therapy components were addressed: The therapist and the walked through the Challenging Questions worksheet together, as she did not complete this on her own -Therapist reminded the to continue reading all trauma accounts that continue to evoke strong negative thoughts or feelings. -Therapist helped focus on stuck points related to self-blame and hindsight bias. -Therapist introduced the Problematic Thinking Patterns Worksheet (e.g., minimization/exaggeration, all-or-none thinking), and examples from the 's thinking about the traumatic event and life in general were used toillustrate these patterns. PRACTICE ASSIGNMENT -Therapist encouraged the to use the CQ worksheets with additional stuckpoints as well as to use Problematic Thinking worksheets PLAN Next session planned for agreed upon date/time of: 04/08/24 /eric/ CHRISTIANO JULIO PSYD LICENSED CLINICAL PSYCHOLOGIST Signed: 03/29/2024 11:48 CHRISTIANO JULIO [facility]
--- OUTSIDE RECORDS SUMMARY | 2024-07-02 06:42 | XMS_ITS | Encounter Summary ---
Author Name [facility] [place] [facility] [place] [facility] [place] Address [address] [place] [address] Care Team Providers Care Assembler Fluorescent Lights Name Role Phone RIAZ LUTHER Primary Care Provider Unavailabl e Insurance Providers: [...] section includes the information on record at [place] for the Encounter. Date/Time Encounter Type Encounter Description Reason Provider Source Dec 15, 2023 09:00 AM SELF-MGMT EDUC & TRAIN 1 PT SPEECH-LANGUAGE PATHOLOGY ICD-10-CM R41.840 Attention and concentration deficit ALBERT DEGROOT Arabella Encounter Template Text not used by [place] Assessments - Encounter Diagnoses This section includes the primary and secondary diagnoses documented for the Encounter. Date/Time Primary/Secondary Diagnosis Diagnosis Name Provider Source Dec 15, 2023 01:16 PM PRIMARY Attention and concentration deficit ALBERT DEGROOT [place] [facility] Plan of Treatment: Future Appointments (+ 6 [...] 20 appointments. The data comes from all [facility]. Appointment Date/Time Appointment Type Appointme nt Facility Name Dec 21, 2023 01:00 PM AMBULATORY - REHAB MEDICIN E [facility]LLA BERMUDE[facility] Dec 22, 2023 08:00 AM AMBULATORY - PSYCHIATRY [facility] Jan 05, 2024 08:00 AM AMBULATORY - PSYCHIATRY [facility] Jan 12, 2024 09:00 AM AMBULATORY - NONE ARIELLA OLMEDO [facility] Jan 19, 2024 08:00 AM AMBULATORY - PSYCHIATRY [facility] Feb 02, 2024 02:00 PM AMBULATORY - PSYCHIATRY [facility] Feb 16, 2024 08:00 AM AMBULATORY - PSYCHIATRY [facility] Mar 01, 2024 08:00 AM AMBULATORY - PSYCHIATRY [facility] Mar 09, 2024 02:00 PM AMBULATORY - MEDICINE [facility] Mar 25, 2024 02:00 PM AMBULATORY - PSYCHIATRY [facility] Apr 22, 2024 09:00 AM AMBULATORY - PSYCHIATRY [facility] May 06, 2024 09:00 AM AMBULATORY - PSYCHIATRY [facility] Jun 03, 2024 08:00 AM AMBULATORY - PSYCHIATRY [facility] Encounter Notes: All associated encounter notes This section contains the clinical notes associated to the Encounter. Date/Time Encounter Note(s) Provider Source Dec 15, 2023 09:04 AM SPEECH PATHOLOGY N OTE: LOCAL TITLE: SPEECH PATHOLOGY/DAILY PROGRESS NOTE STANDARD TITLE: SPEECH PATHOLOGY NOTE DATE OF NOTE: DEC 15, 2023@09:04 ENTRY DATE: DEC 15, 2023@09:04:25 AUTHOR: ALBERT DEGROOT COSIGNER: URGENCY: STATUS: COMPLETED VISIT #: 4 ONSET OF PROBLEM: consult dated 10/01/2023 PLAN ESTABLISHED: 10/20/2023 REFERRING PROVIDER: Dr. Oconnell (polytrauma clinic) Diagnosis: Attention and concentration deficit Visit conducted by synchronous video telehealth; patient verbal consent obtained. Location and emergency number confirmed. 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 Rondon is a 43 year old female who presents to speech pathology clinic via VVC this date, 12/15/2023, with chief complaints of: challenges with memory, remembering major events, struggling for words. The 's last name and last 4 of social security number were verified upon entry into the speech pathology virtual conference room. The arrived unaccompanied to the session. The is a primary Finnish speaker, and the session was conducted in Finnish. No transfer specialist required. The also reported the following: The reported she can think of two specific scenarios during a meeting in which she was able to use retracing cues to get herself back on track and find her words. She reported that setting a boundary and cutoff time for working on task items that come in has become more difficult due to the needs of those sending the task items. However, she feels she has done well at triaging the tasks to figure out which items need to be done now and which can wait until tomorrow. She reports she is making sure to note which tasks she has saved for tomorrow. She has begun to work on her updates at mid morning and mid afternoon in order to stay on top of tasks and not get behind. She reports she has certainly worked toward creating her workflow; however, the functionality of the version of [employer] that her employer uses does not work for her. She is flagging emails to ensure she knows to return to them instead. The stated word finding is the big issue. O: Ms. Rondon was engaged in a clinical conversation with patient education in order to discuss the progress toward her goals and a plan moving forward. Based on the 's report of her current use of strategies in her home and work environments, the is demonstrating employment of cognitive strategies and word finding strategies in her day to day life. The was assigned a HEP in order to practice and generalize use of word finding strategies in her day to day life. [place] verbalized intent to complete HEP. A: The presents with attention and concentration challenges in daily life which impact her word finding and memory in the short term. She has relevant medical history of TBI in 2000. The will benefit from following up with speech pathology clinic in 1 month in order to check in on progress toward goals and completion of HEP. P: The will return to speech pathology clinic via VV in approximately 1 month to continue cognitive communication therapy to target goals for improving attention, memory and word finding. LTG: The will improve day-to-day memory and attention with supports. STG: The will employ cognitive strategies taught in speech therapy to facilitate her memory in the short term (ongoing - meeting). STG: The will employ word-finding strategies in speech therapy setting to facilitate word finding in day to day life (ongoing - progressing). Time spent with : 30 minutes /eric/ ALBERT DEGROOT Speech Language Pathologist Signed: 12/15/2023 13:16 ALBERT DEGROOT [facility]
--- OUTSIDE RECORDS SUMMARY | 2024-07-02 06:42 | XMS_ITS | Encounter Summary ---
Author Name [facility] [place] Organization [facility] [place] [place] Address [address] [place] [address] Care Team Providers Care Head Filter Press Tender Name Role Phone RIAZ LUTHER Primary Care [...] section includes the information on record at [place] for the Encounter. Date/Time Encounter Type Encounter Description Reason Provider Source Dec 01, 2023 09:00 AM THER FILIPE BROOKS ADDL 15 MIN SPEECH-LANGUAGE PATHOLOGY ICD-10-CM R41.840 Attention and concentration deficit ALBERT DEGROOT Arabella Encounter Template Text not used by [place] Assessments - Encounter Diagnoses This section includes the primary and secondary diagnoses documented for the Encounter. Date/Time Primary/Secondary Diagnosis Diagnosis Name Provider Source Dec 01, 2023 10:18 AM PRIMARY Attention and concentration deficit [facility]ERT DEGROOT [place] [facility] Plan of Treatment: Future Appointments (+ [...] 20 appointments. The data comes from all [place] treatment facilities. Appointment Date/Time Appointment Type Appointme nt Facility Name Dec 15, 2023 09:00 AM AMBULATORY - NONE [facility] Dec 21, 2023 01:00 PM AMBULATORY - REHAB MEDICIN E [facility] Dec 22, 2023 08:00 AM AMBULATORY - PSYCHIATRY [facility] Jan 05, 2024 08:00 AM AMBULATORY - PSYCHIATRY [facility] Jan 12, 2024 09:00 AM AMBULATORY - NONE [facility] Jan 19, 2024 08:00 AM AMBULATORY - PSYCHIATRY [facility] Feb 02, 2024 02:00 PM AMBULATORY - PSYCHIATRY [facility] Feb 16, 2024 08:00 AM AMBULATORY - PSYCHIATRY [facility] Mar 01, 2024 08:00 AM AMBULATORY - PSYCHIATRY [facility] Mar 09, 2024 02:00 PM AMBULATORY - MEDICINE [facility] Mar 25, 2024 02:00 PM AMBULATORY - PSYCHIATRY [facility] Apr 22, 2024 09:00 AM AMBULATORY - PSYCHIATRY [facility] May 06, 2024 09:00 AM AMBULATORY - PSYCHIATRY [facility] Encounter Notes: All associated encounter notes This section contains the clinical notes associated to the Encounter. Date/Time Encounter Note(s) Provider Source Dec 01, 2023 09:56 AM SPEECH PATHOLOGY N OTE: LOCAL TITLE: SPEECH PATHOLOGY/DAILY PROGRESS NOTE STANDARD TITLE: SPEECH PATHOLOGY NOTE DATE OF NOTE: DEC 01, 2023@09:56 ENTRY DATE: DEC 01, 2023@09:56:29 AUTHOR: ALBERT DEGROOT COSIGNER: URGENCY: STATUS: COMPLETED VISIT #: 4 ONSET OF PROBLEM: consult dated 10/01/2023 PLAN ESTABLISHED: 10/20/2023 REFERRING PROVIDER: Dr. Oconnell (polytrauma clinic) Diagnosis: Attention and concentration deficit Visit conducted by synchronous video telehealth; patient verbal consent obtained. Location and emergency number confirmed. 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 Rondon is a 43 year old female who presents to speech pathology clinic via VVC this date, 12/01/2023, with chief complaints of: challenges with memory, remembering major events, struggling for words. The 's last name and last 4 of social security number were verified upon entry into the speech pathology virtual conference room. The arrived unaccompanied to the session. The is a primary Peruvian speaker, and the session was conducted in Peruvian. No seed production field supervisor required. The also reported the following: The has been using her reminders/alarms to begin working on updates. She also set an additional alarm for earlier in the day to begin working on updates to keep herself on track. She feels she has been successful with this over the last two weeks. She did not get started on her workflow/microsoft to-do function for task management and organization. She feels she has been more attentive during conversations using the Listen actively and eliminate distractions ideas from the LEAP strategy. Ms. Rondon reports having started a new medication on 11/25 for her migraines, which caused her to feel foggy for a few days. She thinks this new medication may have impacted her focus and participation in conversations this week. O: Cognitive communication therapy was conducted with the in order to address her concerns for her memory and word finding difficulty. DENSITOMETER READER and had clinical discussion on examples of the 's challenges and how they impact her day to day life. Strategies suggested: 1. Continue to keep goal of creating a workflow/to-do function in [employer] office in order to be able to stay organized and manage tasks in a timely manner. 2. Set an alarm with a label to remember to make phone calls, begin certain tasks, etc. Utilize the snooze feature if your alarm sounds and you cannot tend to the task at that moment. This will help keep you accountable for getting started and/or completing the task. 3. Complete cognitively stimulating activities each day. Continue piano lessons to keep challenging your brain. 4. Implement the Ask questions' and paraphrase ideas from the LEAP strategy to ensure your participation in the conversation and your comprehension of the content of the conversation. A: The presents with attention and concentration challenges in daily life which impact her memory in the short term. She has relevant medical history of TBI in 2000. The will benefit from continuing speech therapy services in order to develop compensatory strategies for challenges with attention and memory and to address word finding concerns. P: The will return to speech pathology clinic via VVC in approximately 2 weeks to continue cognitive communication therapy to target goals for improving attention, memory and word finding. The will receive cognitive communication therapy weekly to biweekly (depending on 's availability) for 3-5 more weeks to address the following goals: LTG: The will improve day-to-day memory and attention with supports. STG: The will employ cognitive strategies taught in speech therapy to facilitate her memory in the short term (ongoing - progressing). STG: The will employ word-finding strategies in speech therapy setting to facilitate word finding in day to day life (ongoing - progressing). Time spent with : 45 minutes /eric/ ALBERT DEGROOT Speech Language Pathologist Signed: 12/01/2023 10:18 ALBERT DEGROOT [facility]
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
--- OUTSIDE RECORDS SUMMARY | 2024-07-02 06:42 | XMS_ITS | Encounter Summary ---
Author Organization [facility] Address [address] [place] [address] Care Team Providers Care Receiving Lead Name Role Phone Jaime Moran MD Primary Care Provider [phone] Hansel Rosas MD Unavailable [phone] Encounter Details Date Type Department Care Team (Late st Contact Info) Description 10/30/2021 LegCytet Message Enc [facility] [address], [facility] [address] [place] [address] Bogdan Magaña MD [address] [place] [address] Visit Follow Up Social History Tobacco Use Types Packs/Day Years Used Date Smoking Tobacco: Never Smokeless Tobacco: Never Alcohol Use Standard Drinks/Week Comments Yes 0 (1 standard drink = 0.6 oz pur e alcohol) 2 per week AUDIT-C Answer Date Recorded Q1: How often do you have a drink containing alc ohol? Never 12/13/2019 Average Number of Drinks Not on file 020 Frequency of Binge Drinking Not on file 11/25 Comments Unknown Sex and Gender Information Value Date Recorded Sex Assigned at Not on file Legal Sex Female 9:56 PM CDT Gender Identity Female 08/12/2021 6:21 AM CDT Sexual Orientation Not on file Occupation Industry Job Start Date Job End Date Not on file Not on file Not on file Not on file COVID-19 Exposure Response Date Recorded In the last 10 days, have yo u been in contact with someone who was confirmed or suspected to have Coronavirus/COVID-19? No / Unsure 10/30/2021 1:27 PM CDT documented as of this encounter Plan of Treatment Upcoming Encounters Date Type Department Care Team (Late st Contact Info) Description 07/19/2024 11:00 AM CDT Appointment [facility] [address] [place] [address] Maricruz Torres MD [address] [place], [place] [id number] documented as of this encounter Visit Diagnoses Not on filedocumented in this encounter Care Teams Receiving Lead Relationship Specialty Start Date End Date Jaime Moran MD [address] [place] [address] PCP - General INTERNAL MEDICINE 12/12/19 Hansel Rosas MD [address] [place] [address] [place] [employer] Decorator CARDIOVASCULAR DISEASE 12/12/19 documented as of this encounter
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
--- OUTSIDE RECORDS SUMMARY | 2024-07-02 06:42 | XMS_ITS | Clinical Summary ---
Author Organization [facility] Address [address] [place] [address] Care Team Providers Care Belt Worker Name Role Phone Jaime Moran MD Primary Care Provider [phone] Allergies Active Allergy Reactions Criticality Noted Date Comments Acetaminophen Rash Medium 10/05/2015 Pt states can take tylenol just not tylenol with codiene Codeine Hives Medium 05/17/2014 Hydrocodone-Acetaminophen Hives Medium 05/17/2014 Latex Swelling Medium 10/05/2015 Penicillins Vomiting Low 10/05/2015 Tramadol Nausea & Vomiting Low 10/15/2015 Medications levonorgestreL (MIRENA) IUD 9 Active magnesium oxide (MAG-OX) 400 mg (241.3 mg elemental magnesium) tablet Take 1 tablet by mouth twice daily 60 tablet 11 3 Active ASHWAGANDHA EXTRACT ORAL Take 200 mg by mouth 2 (two) times a day Active meloxicam (MOBIC) 15 mg tablet Take 1 tablet (15 mg total) by mouth daily 3 Active albuterol HFA (PROVENTIL HFA,VENTOLIN HFA,PROAIR HFA) 90 mcg/actuation inhaler INHALE 1 - 2 PUFFS BY MOUTH EVERY 4 HOURS NEEDED 3 Active diltiaZEM CD (CARDIZEM CD) 360 mg 24 hr capsuleIndications: Coronary vasospasm Take 1 capsule (360 mg total) by mouth daily 90 capsule 3 4 Active rizatriptan PIPE LAYER HELPER (MAXALT-PIPE LAYER HELPER) 10 mg disintegrating tabletIndications:M igraine Take 1 tablet (10 mg total) by mouth once as needed for migraine May repeat in 2 hours if unresolved. Do not exceed 30 mg in 24 hours. Active calcium carbonate-vitamin D3 2,500 mg (1,000 mg elemental)-800 unit tablet Take by mouth Active nitroglycerin (NITROSTAT) 0.[address] 1 tablet (0.4 mg total) under the tongue every 5 (five) minutes as needed for chest pain May repeat dose q 5 min, up to 3 doses total 90 tablet 1 4 Active ranolazine ER (RANEXA) 500 mg 12 hr tablet TAKE 1 TABLET BY MOUTH TWICE A DAY 180 tablet 3 4 Active Active Problems Problem Noted Date Diagnosed Date Coronary vasospasm 04/10/2022 Precordial pain 09/27/2020 Assessment & Plan (10/11/2020 2:25 PM CDT): Etiology unclear - ddx includes anomalous coronary, atherosclerosis, vasospasm Obtain coronary CT If normal, consider initiation of diltiazem for treatmetn for vasospasm If no benefit from diltiazem, these symptoms may be related to prior COVID infection and long haul symptoms vs non-cardiac in etiology. Check A1c and Lp(a) for risk stratification Resolved Problems Problem Noted Date Diagnosed Date Resolved Date Pulmonary hypertension (CMS/HCC) 04/10/2022 Immunizations Immunization Administration Dates Next Due Influenza, Quadrivalent, Split, Intramuscular MMR 11/07/2013 Tdap 08/31/2013 Surgical History Surgery Date Site/Laterality Comments SECTION TONSILLECTOMY FOOT SURGERY 04/27/2015 - 04/26/2016 plantar fasciitis release SHOULDER SURGERY 04/27/2011 - 04/26/2012 arthroscopic KNEE RECONSTRUCTION, MEDIAL PATELLAR FEMORAL LIGAMENT 03/06/2022 Right Medical History Medical History Date Comments BALTA (obstructive sleep apnea) Family History Medical History Relation Name Comments Asthma Brother Hypertension Father Heart attack Maternal Grandfather Diabetes Mother Hypertension Mother Heart attack Paternal Grandfather Heart disease Paternal Grandmother Stroke Paternal Grandmother Relation Name Status Comments Brother Father Maternal Grandfather Mother Paternal Grandfather Paternal Grandmother Social History Tobacco Use Types Packs/Day Years Used Date Smoking Tobacco: Never Smokeless Tobacco: Never Tobacco Cessation:Counseling Given: Not Answered AUDIT-C Answer Date Recorded Q1: How often do you have a drink containing alc ohol? Monthly or less 08/20/2020 Q2: How many drinks containi ng alcohol do you have on a typical day when you are drinking? 1 or 2 08/20/2020 Q3: How often do you have si x or more drinks on one occasion? Never 08/20/2020 Personal Safety Answer Date Recorded Getting School Help Needed Not on file 04/10 Comments No Sex and Gender Information Value Date Recorded Sex Assigned at Not on file Legal Sex Female 12:34 PM CDT Gender Identity Female 08/24/2020 1:03 PM CDT Sexual Orientation Not on file Obstetrics History Last Filed Vital Signs Vital Sign Reading Time Taken Comments Blood Pressure 117/86 10/27/2023 3:23 PM CDT Pulse 74 10/27/2023 3:23 PM CDT Temperature 37.2 C (99 F) 08/20/2020 9:00 AM CDT Respiratory Rate 22 08/20/2020 12:30 PM CDT Oxygen Saturation 98% 10/27/2023 3:23 PM CDT Inhaled Oxygen Concentration - - Weight 80.9 kg (178 lb 6.4 oz) 10/27/2023 3:23 P M CDT Height 171.5 cm (5' 7.5 ) 10/27/2023 3:23 PM CDT Body Mass Index 27.53 10/27/2023 3:23 PM CDT Plan of Treatment Health Maintenance Due Date Last Done Comments Cervical Cancer Screening 1981 Depression Screening 1981 Hepatitis C Screening 1981 Regular Well Visit/Exam 18-64 09/17/1999 Varicella Vaccines (1 of 2 - 13+ 2-dose series) 06/02/2004 Covid-19 Vaccine ( - 2023- season) 2023 03/27/2021, 07/27/2020, 06/29/2020 Influenza Vaccine (#1) 2023 , 02/28/2020, 01/29/2019, Additional history exists Breast Cancer Screening-Mammogram 07/13/2024 07/14/2023, 07/14/2023, 06/18/2022 DTaP/Tdap/Td Vaccine (4 - Td or Tdap) 08/07/2033 08/08/2023, 08/31/2013, 02/07/2012, Additional history exists Hepatitis B Screening Completed 08/16/2010 , 01/05/2010, 11/03/2009 HPV Vaccines Aged Out No longer eligi ble based on patient's age to complete this topic Pneumococcal vaccine <65 Aged Out No longer eligible based on patient's age to complete this topic Insurance [facility] [facility] Member Subscriber Plan / Payer (Ef fective 2020-Present) Name:Demar Rondon Relation to Subscriber:Self Name:Demar Rondon Payer ID:[id number] Group ID:[id number] Type:CIGNA HMO/PPO Address: [place], [place] [employer] [facility] Member Subscriber Plan / Payer (Ef fective 2020-Present) Name:Demar Rondon Relation to Subscriber:Self Name:Demar Rondon Payer ID:[id number] Group ID:[id number] Type:CIGNA HMO/PPO Address: [place], [place] Care Teams Belt Worker Relationship Specialty Start Date End Date Jaime Moran MD PCP - General 04/06/20
--- OUTSIDE RECORDS SUMMARY | 2024-07-02 06:42 | XMS_ITS | Encounter Summary ---
Author Name [facility] [place] Organization [facility] [place] Address [address] [place] [address] Care Team Providers Care Blueprint Developer Name Role Phone LUTHER MELLO Primary Care [...] section includes the information on record at [place] for the Encounter. Date/Time Encounter Type Encounter Description Reason Provider Source Jan 19, 2024 08:00 AM PSYTX W PT 60 MINUTES [facility] - IND ICD-10-CM F43.12 Post-traumatic stress disorder, chronic PEEK,CHRISTIANO E Encounter Template Text not used by [place] Assessments - Encounter Diagnoses This section includes the primary and secondary diagnoses documented for the Encounter. Date/Time Primary/Secondary Diagnosis Diagnosis Name Provider Source Jan 19, 2024 11:59 AM PRIMARY Post-traumatic stress disorder, chronic PEEKCHRISTIANO [facility] Plan of Treatment: Future Appointments [...] 20 appointments. The data comes from all [place] treatment facilities. Appointment Date/Time Appointment Type Appointme nt Facility Name Feb 02, 2024 02:00 PM AMBULATORY - PSYCHIATRY [facility] Feb 16, 2024 08:00 AM AMBULATORY - PSYCHIATRY [facility] Mar 01, 2024 08:00 AM AMBULATORY - PSYCHIATRY [facility] Mar 09, 2024 02:00 PM [facility]ORY [facility]INE [facility] Mar 25, 2024 02:00 PM AMBULATORY - PSYCHIATRY [facility] Apr 22, 2024 09:00 AM AMBULATORY - PSYCHIATRY [facility] May 06, 2024 09:00 AM AMBULATORY - PSYCHIATRY [facility] Jun 03, 2024 08:00 AM AMBULATORY - PSYCHIATRY [facility] Jul 05, 2024 09:00 AM AMBULATORY PSYCHIATRY [facility] Social History: Smoking Status (Most current) and Tobacco Use (All prior to encounter date) This section includes the most current, and the historical, smoking and tobacco- related health factors from the [place] facility where the Encounter took place. Current Smoking Status This section includes the most current smoking, or tobacco-related health factor, from the [place] facility where the Encounter took place. Date/Time Current Smoking Status Comment Facil ity September 11, 2023 08:30 AM VA-TOBACCO NEVER USED [facility] Encounter Notes: All associated encounter notes This section contains the clinical notes associated to the Encounter. Date/Time Encounter Note(s) Provider Source Jan 19, 2024 07:47 AM MENTAL HEALTH NOTE : LOCAL TITLE: MENTAL HEALTH/TREATMENT NOTE STANDARD TITLE: MENTAL HEALTH NOTE DATE OF NOTE: JAN 19, 2024@07:47 ENTRY DATE: JAN 19, 2024@07:47:52 AUTHOR: CHRISTIANO JULIO COSIGNER: URGENCY: STATUS: COMPLETED Telehealth Disclosure: Visit conducted by synchronous telehealth. Faith verbal consent obtained. Location/emergency number confirmed. Environment surveyed and all participants identified. Virtual conference room locked. Reason For Visit: Ongoing therapy Patient address during visit: Home [id number] [place] [phone] Emergency number confirmed: PATIENT CELL PHONE - NONE FOUND ----- Cognitive Processing Therapy: Meaning Session Time in session (in minutes): 55 SESSION NUMBER: 2 SESSION FORMAT Video Telehealth Session SESSION LOCATION Other location Specify: Provider located in [place], [place] while meeting with via Telehealth DIAGNOSIS: Primary (focus of treatment): Post Traumatic Stress Disorder ASSESSMENT: PCL-5 Weekly The score was 26. CHANGE IN SCORE (PCL or PHQ9) No change in PCL score RISK INFORMATION The was not a risk to herself or others MENTAL STATUS/BEHAVIORAL OBSERVATIONS The was on time for the scheduled [facility] appointment. She was appropriately dressed and neatly groomed. She was alert and fully oriented. The was pleasant and cooperative for the session. Energy was appropriate to the session. Mood was mildly anxious with a less restricted affect. 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 Thought processes were clear and goal-directed; thought [...] time of the session. SESSION CONTENT: The Faith completed the Meaning of the Event session of Cognitive Processing Therapy (CPT) for PTSD. The following therapy components were addressed: -The Faith and therapist reviewed the Stuck Point Help Sheet and started the Stuck Point Log. -Therapist had Faith read their Impact Statement. -Discussed the meaning of the Impact Statement with the with a focus on identifying stuck points . -Therapist introduced relationships between thoughts, feelings, and behaviors. -Therapist introduced the A-B-C Worksheets and demonstrated how to complete them in session. PRACTICE ASSIGNMENT: -Therapist assigned practice assignment to complete at least one A-B-C Worksheet each day. -Therapist asked the Faith to continue to add to the Stuck Point Log. PLAN Follow up with the on 02/02/24 for session 3 of CPT /eric/ CHRISTIANO JULIO PSYD LICENSED CLINICAL PSYCHOLOGIST Signed: 01/19/2024 11:59 CHRISTIANO JULIO [facility]
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
--- OUTSIDE RECORDS SUMMARY | 2024-07-02 06:42 | XMS_ITS | Encounter Summary ---
Author Name [facility] [place] [facility] [place] [place] Address [address] [place] [address] Care Team Providers Care Computer Operator Name Role Phone LUTHER MELLO Primary Care [...] section includes the information on record at [place] for the Encounter. Date/Time Encounter Type Encounter Description Reason Provider Source Feb 02, 2024 02:00 PM PSYTX W PT 60 MINUTES [facility] - IND ICD-10-CM F43.12 Post-traumatic stress disorder, chronic PEEKCHRISTIANO Arabella Encounter Template Text not used by [place] Assessments - Encounter Diagnoses This section includes the primary and secondary diagnoses documented for the Encounter. Date/Time Primary/Secondary Diagnosis Diagnosis Name Provider Source Jun 16, 2024 11:26 AM PRIMARY Post-traumatic stress disorder, chronic PEEKCHRISTIANO [facility] Plan of Treatment: Future [...] 20 appointments. The data comes from all [facility] facilities. Appointment Date/Time Appointment Type Appointme nt Facility Name Feb 16, 2024 08:00 AM AMBULATORY - PSYCHIATRY [facility] Mar 01, 2024 08:00 AM AMBULATORY - PSYCHIATRY [facility] Mar 09, 2024 02:00 PM AMBULATORY - MEDICINE [facility] Mar 25, 2024 02:00 PM AMBULATORY - PSYCHIATRY [facility] Apr 22, 2024 09:00 AM AMBULATORY - PSYCHIATRY [facility] May 06, 2024 09:00 AM AMBULATORY - PSYCHIATRY [facility] Jun 03, 2024 08:[address] [facility] Jul 05, 2024 09:[address] [facility] Social History: Smoking Status (Most current) and Tobacco Use (All prior to encounter date) This section includes the most current, and the historical, smoking and tobacco- related health factors from the [place] facility where the Encounter took place. Current Smoking Status This section includes the most current smoking, or tobacco-related health factor, from the [place] facility where the Encounter took place. Date/Time Current Smoking Status Comment Facil ity September 11, 2023 08:30 AM VA-TOBACCO NEVER USED [facility] Encounter Notes: All associated encounter notes This section contains the clinical notes associated to the Encounter. Date/Time Encounter Note(s) Provider Source Feb 02, 2024 02:59 PM MENTAL HEALTH NOTE : LOCAL TITLE: MENTAL HEALTH/TREATMENT NOTE STANDARD TITLE: MENTAL HEALTH NOTE DATE OF NOTE: FEB 02, 2024@14:59 ENTRY DATE: FEB 02, 2024@14:59:42 AUTHOR: CHRISTIANO JULIO COSIGNER: URGENCY: STATUS: COMPLETED Telehealth Disclosure: Visit conducted by synchronous telehealth. verbal consent obtained. Location/emergency number confirmed. Environment surveyed and all participants identified. Virtual conference room locked. Reason For Visit: [facility] Patient address during visit: Home [id number] [place] [id number] Emergency number confirmed: PATIENT CELL PHONE - ----- Cognitive Processing Therapy: A-B-C Worksheet Session Time in session (in minutes): 53 SESSION NUMBER: 3 SESSION FORMAT Video Telehealth Session SESSION LOCATION Other location Specify: Provider located in [place], [place] DIAGNOSIS: Primary (focus of treatment): PTSD ASSESSMENT: Date Instrument Raw Trans Scale 01/19/2024 08:00 PCL-5 WEEKLY 26 PCL-5 01/05/2024 08:00 PCL-5 WEEKLY 26 PCL-5 No data available PCL-5 Weekly The score was 29. CHANGE IN SCORE (PCL or PHQ9) CHANGES IN ASSESSMENT SCORES FROM EARLIER ADMINISTRATIONS: There was a 3-point increase, likely due to increased focus on the incident RISK INFORMATION The was not a risk to herself or others MENTAL STATUS/BEHAVIORAL OBSERVATIONS The was on time for the scheduled [facility] appointment. She was appropriately dressed and [...] time of the session. SESSION CONTENT: The Nevis completed the Thoughts and Feelings Session of the Cognitive Processing Therapy (CPT) for PTSD. The following therapy components were addressed: -Therapist reviewed homework (A-B-C Worksheets) with Nevis, and helped further differentiate between thoughts and feelings. -Therapist helped Nevis identify stuck points and add them to the Stuck Point Log. -Therapist helped the to begin to challenge problematic thoughts using Socratic Questioning. Encouraged to make stuck points more concise, highlighting that there were sub-stuck points within some of her most powerful stuckpoints PRACTICE ASSIGNMENT -Therapist asked Nevis to continue using the A-B-C Worksheets, completing one each day. PLAN Next session planned for agreed upon date/time of: 02/16/24 at 8a /eric/ CHRISTIANO JULIO PSYD LICENSED CLINICAL PSYCHOLOGIST Signed: 02/05/2024 09:21 CHRISTIANO JULIO [facility]
--- OUTSIDE RECORDS SUMMARY | 2024-07-02 06:42 | XMS_ITS | Encounter Summary ---
Author Name [facility] Address [address] [place] [address] Care Team Providers Care Purchase Price Analyst Name Role Phone MELLOLUTHER Ruano Primary Care [...] section includes the information on record at [place] for the Encounter. Date/Time Encounter Type Encounter Description Reason Pro vider Source September 11, 2023 09:44 AM Outpatient Encounter ADMIN PAT ACTIVTIES (MASNONCT) [facility] Encounter Template Text not used by [place] Plan of Treatment: Future Appointments (+ 6 months) and Future Tests (+/- 45 days) The Plan of Treatment section includes future care activities for the patient from all [place] treatmentfacilities. This section includes future appointments and future orders which are active, pending or scheduled. Future Appointments This section includes appointments that were scheduled to occur 6 months from the date of the Encounter, up to a maximum of 20 appointments. The data comes from all [place] treatment facilities. Appointment Date/Time Appointment Type Appointme nt Facility Name September 17, 2023 08:30 AM AMBULATORY - MEDICINE [facility] September 17, 2023 09:00 AM AMBULATORY - NONE [facility] Oct 01, 2023 08:30 AM AMBULATORY - [place]CHIATRY [place] ROSENDO [facility] Oct 01, 2023 12:00 PM AMBULATORY - MEDICINE [place]I SOBIA [facility] Oct 09, 2023 09:00 AM AMBULATORY - PSYCHIATRY [facility] Oct 15, 2023 08:00 AM AMBULATORY - NONE ILLIANA [facility] Oct 20, 2023 08:30 AM AMBULATORY - NONE ARIELLA [facility] Oct 23, 2023 09:00 AM AMBULATORY - SURGERY [facility] Oct 28, 2023 01:00 PM AMBULATORY - PSYCHIATRY [facility] Nov 03, 2023 01:00 PM AMBULATORY - NONE ARIELLA [facility]AL[facility]AN [facility] Nov 04, 2023 01:00 PM AMBULATORY - PSYCHIATRY [facility] Nov 09, 2023 02:15 PM AMBULATORY - NONE [facility] Nov 17, 2023 09:00 AM AMBULATORY - NONE ARIELLA [facility]ALVAN [facility] Dec 01, 2023 09:00 AM AMBULATORY - NONE ARIELLA [facility]AL[facility]AN [facility] Dec 15, 2023 09:00 AM AMBULATORY - NONE ARIELLA [facility]AL[facility]AN [facility] Dec 21, 2023 01:00 PM AMBULATORY - REHAB MEDICIN E [facility] Dec 22, 2023 08:00 AM AMBULATORY - PSYCHIATRY [facility] Jan 05, 2024 08:00 AM AMBULATORY - PSYCHIATRY [facility] Jan 12, 2024 09:00 AM AMBULATORY - NONE ARIELLA GALVAN [facility] Jan 19, 2024 08:00 AM AMBULATORY - PSYCHIATRY [facility] Lab Results: +/- 30 days of the encounter This section includes the Chemistry and Hematology Lab Results on record with [facility] for the patient. Radiology Reports and Pathology Reports are provided separately, in subsequent sections. Lab Results This section contains the Chemistry/Hematology Results that were resulted 30 days before or 30 daysafter the date of the Encounter. Date/Time Source Result Type Result - Unit Interpretation Reference Range Comment September 11, 2023 10:07 AM [facility] CBC W/DIFF Specimen Type: BLOOD No comment entered. Ordering Provider: LUTHER MELLO Report Released Date/Time: September 09, 2023 02:25 PM Reporting Lab: [facility] [address] [facility] [address] Performing Lab: [facility] [address] [facility] [address] WBC 9.4 10*3/uL 4.0-11.0 RBC 4.56 10*6/uL 4.00-5.30 HGB 14.4 g/dL 12.0-16.0 HCT 41.8 36.0-48.0 MCV 91.7 fL 82-99 MCH 31.6 pg 27-34 MCHC 34.4 g/dL 31-37 MPV 11.8 fL 8-[address] 263 10*3/uL 130-400 RDW-CV 12.1 < 15.0 NEUTROPHILS% 65.9 LYMPHS% 22.8 MONOS% 9.4 EOS% 1.1 BASOS% 0.6 IG% 0.2 NEUTROPHILS# 6.2 10*3/uL 1.5-8.0 LYMPHS# 2.1 10*3/uL 1.0-4.0 MONOS# 0.9 10*3/uL 0.2-1.0 EOS# 0.1 10*3/uL 0-0.4 BASOS# 0.1 10*3/uL 0-0.2 IG# <0.1 10*3/uL 0-0.5 NRBC% 0.0 /100{WBCs} 0-0.2 NRBC# <0.01 10*3/uL 0-0.012 September 11, 2023 10:07 AM [facility] A1C % Specimen Type: BLOOD Comment: Normal: < or = 5.6% Pre-diabetes: 5.7-6.4% Diabetes Mellitus: > or = 6.5% Values obtained from A1C measurements can vary. For typical A1C assays, a reported value of 7.0 could actually be between 6.72 and 7.28 if measured by a reference method. A reported value of 9.0 could actually be between 8.73 and 9.27. Ref: http://www.ngs p.org/CAPdata. asp Ordering Provider: LUTHER MELLO Report Released Date/Time: September 09, 2023 02:25 PM Reporting Lab: [address] [address] Performing Lab: [address] [address] A1C % 5.0 0.0-5.6 September 11, 2023 10:07 AM [facility] COMPREHENSIVE PNL Specimen Type: PLASMA Comment: Normal: <150 mg/dL -Borderline High: 1580-199 mg/dL -High: 200-499 mg/dL -Very High: >500 mg/dL eGFR was calculated using the CKD-EPI Creatinine (2020) equation. Low-risk levels (desirable) <200 mg/dL Moderate-risk levels (borderline) 200-239 mg/dL High-risk levels: >= 240 mg/dL Optimal: <100 mg/dL -Near Optimal/Above Optimal: 100-129 mg/dL -Borderline High: 130-159 mg/dL -High: 160-189 mg/dL -Very High: >=190 mg/dL Ordering Provider: LUTHER MELLO Report Released Date/Time: September 09, 2023 02:25 PM Reporting Lab: [address] [address] Performing Lab: [address] [address] ANION GAP 5 mmol/L 5-15 EGFR 113 mL/min > 60 GLUCOSE 75 mg/dL 70-99 POTASSIUM 3.8 mmol/L 3.5-4.7 SODIUM 138 mmol/L 136-145 BILI,TOTAL 0.5 mg/dL 0.2-1.2 PROTEIN, TOTL 6.9 g/dL 5.7-8.2 ALBUMIN 4.7 g/dL 3.4-5.0 ALKAL PHOS 56 U/L 45-117 ALT 18 U/L 10-65 AST 13 U/L 10-37 UREA NITROGEN 13 mg/dL 7-21 CALCIUM, TOTAL 9.1 mg/dL 8.7-10.4 CO2 24.0 mmol/L 21.0-32.0 CHLORIDE 109 mmol/L 98-109 CREATININE 0.65 mg/dL 0.51-0.95 September 11, 2023 10:07 AM [facility] LIPID PNL Specimen Type: PLASMA Comment: Normal: <150 mg/dL -Borderline High: 1580-199 mg/dL -High: 200-499 mg/dL -Very High: >500 mg/dL eGFR was calculated using the CKD-EPI Creatinine (2020) equation. Low-risk levels (desirable) <200 mg/dL Moderate-risk levels (borderline) 200-239 mg/dL High-risk levels: >= 240 mg/dL Optimal: <100 mg/dL -Near Optimal/Above Optimal: 100-129 mg/dL -Borderline High: 130-159 mg/dL -High: 160-189 mg/dL -Very High: >=190 mg/dL Ordering Provider: LUTHER MELLO Report Released Date/Time: September 09, 2023 02:25 PM Reporting Lab: [address] [address] Performing Lab: [address] [address] DIR. HDL 49.8 mg/dL L >=60 TRIGLYCERIDES 85 mg/dL See Comment DIR LDL canc CHOL 163 mg/dL See Comment LDL (CALCULATED) 96.2 mg/dL See Comment September 11, 2023 10:07 AM [facility] THYROID CASCADE PANEL Specimen Type: SERUM Comment: Deficiency <20, Insufficiency 20-30, Sufficiency 30-100, Toxicity >100 ng/mL Ordering Provider: LUTHER MELLO Report Released Date/Time: September 09, 2023 02:25 PM Reporting Lab: [address] [address] Performing Lab: [address] [address] TSH3 ULTRA EIA 1.490 u[IU]/mL 0.550-4.78 0 September 11, 2023 10:07 AM [facility] URINE ALBUMIN/CREAT (RAND URINE) Specimen Type: URINE Comment: MALB/CREAT ratio cannot be calculated-sobia lyte outside linearity. Ordering Provider: LUTHER MELLO Report Released Date/Time: September 09, 2023 02:25 PM Reporting Lab: [address] [address] Performing Lab: [address] [address] URINE ALBUMIN(RAND URINE) <0.3 mg/dL <2.0 CREAT(RNDM URINE) 30.50 mg/dL 29-226 CREAT RATIO (RNDM URINE) comment mg/g <30 September 11, 2023 10:07 AM [facility] VITAMIN D 25-HYDROXY Specimen Type: SERUM Comment: Deficiency <20, Insufficiency 20-30, Sufficiency 30-100, Toxicity >100 ng/mL Ordering Provider: LUTHER MELLO Report Released Date/Time: September 09, 2023 02:25 PM Reporting Lab: [address] [address] Performing Lab: [facility] [address] [facility] [address] VITAMIN D 25-HYDROXY 22.90 ng/mL L 30-100 Radiology Reports: +/- 30 days of the [...] the Encounter. The data comes from all [place] treatment facilities. Date/Time Radiology Report Provider Source Oct 01, 2023 12:30 PM OUTSIDE STUDY [facility]: GURJIT ZENG [id number] -[id number] F Exm Date: OCT 01, 2023@12:30 Req Phys: LUTHER MELLO Pat Loc: [facility] (Req'g Loc) Img Loc: OUTSIDE RADIOLOGY IMPORT EXAM Service: Unknown Screen: Patient is unable to answer or is unsure Screen Comment: OUTSIDE STUDY (Case [id number] COMPLETE) OUTSIDE STUDY GENERAL RAD (RAD Detailed) CPT:78258 Reason for Study: See clinical history below: Clinical History: Right foot pain Report Status: Electronically Filed Date Reported: OCT 01, 2023 Report: This procedure was performed outside of the [facility]. If the images and associated report were provided, they can be viewed in [employer] [facility] and/or [employer] [facility] PACS System. Impression: This procedure was performed outside of the [facility]. If the images and associated report were provided, they can be viewed in [employer] [facility] and/or [employer] [facility] PACS System. VERIFIED BY: / [facility] Oct 01, 2023 12:00 PM OUTSIDE STUDY [facility]ENE [facility] RAD: GURJIT ZENG [id number] -[id number] F Exm Date: OCT 01, 2023@12:00 Req Phys: LUTHER MELLO Pat Loc: [facility] (Req'g Loc) Img Loc: OUTSIDE RADIOLOGY IMPORT EXAM Service: Unknown Screen: Patient is unable to answer or is unsure Screen Comment: OUTSIDE STUDY (Case [id number] COMPLETE) OUTSIDE STUDY GENERAL RAD (RAD Detailed) CPT:07908 Reason for Study: See clinical history below: Clinical History: left foot pain Report Status: Electronically Filed Date Reported: OCT 01, 2023 Report: This procedure was performed [facility] of the [facility]. If the images and associated report were provided, they can be viewed in [employer] [facility] and/or [facility] [facility] PACS System. Impression: This procedure was performed outside of the [facility]. If the images and associated report were provided, they can be viewed in [employer] [facility] and/or [employer] PACS System. VERIFIED BY: / [facility] Encounter Notes: All associated encounter notes This section contains the clinical notes associated to the Encounter. Date/Time Encounter Note(s) Provider Source September 11, 2023 09:44 AM PHYSICIAN NOTE: LOCAL TITLE: PROVIDER/MEDICATION RECONCILIATION STANDARD TITLE: PHYSICIAN NOTE DATE OF NOTE: SEPTEMBER 11, 2023@09:44:24 ENTRY DATE: SEPTEMBER 11, 2023@09:44:25 AUTHOR: LUTHER MELLO COSIGNER: URGENCY: STATUS: COMPLETED DEPARTMENT OF [facility] [address] [place], [place] [address] GURJIT ZENG SEPTEMBER 11, 2023 [id number] [place], [place] [address] Patient: GURJIT ZENG A list of reconciled medications was provided to the /caregiver. The following medication list was reviewed with the patient/caregiver: The [place]/caregiver was counseled on new medications and/or medication changes. Potential risks, benefits, and alternative to medications prescribed were discussed with /caregiver who was given an opportunity to ask questions, which were answered to the best of my ability and seemingly to their satisfaction. /caregiver was/were instructed to contact provider (means provided) with any concerns or questions. INCLUDED IN THIS LIST: Alphabetical list of active outpatient prescriptions dispensed from this [facility] (local) and dispensed from another VA or [facility]D facility (remote) as well as inpatient orders (local pending and active), local clinic medications, locally documented non-VA medications, and local prescriptions that have or been discontinued in the past 90 days. NOTE The display of VA prescriptions dispensed from another VA or DoD facility (remote) is limited to active outpatient prescription entries matched to National Drug File at the originating site and may not include some items such as investigational drugs, compounds, etc. NOT INCLUDED IN THIS LIST: Medications self-entered by the patient into personal health records (i.e. [employer]) are not included in this list. Non-VA medications documented outside this [place], remote inpatient orders (regardless of status) and remote clinic medications are NOT included in this list. The patient and provider must always discuss medications the patient is taking, regardless of where the medication was dispensed or obtained. Patient safety alert: Medications and allergies from [facility] facilities may be incomplete. Reference [facility] for full list. Allergies/ADRs Facility Allergen (Reaction) -------- [facility] PENICILLIN (NAUSEA AND VOMITING) [facility] PENICILLIN (RASH) [facility] SULFA DRUGS (RASH) [facility] VICODIN (URTICARIA) Remote Facilities No Allergy/ADR Data available MEDICATION RECONCILIATION /eric/ [facility] Date printed: SEPTEMBER 11, 2023 10:27 [facility] LUTHER MELLO [facility]
--- OUTSIDE RECORDS SUMMARY | 2024-07-02 06:42 | XMS_ITS | Continuity of Care Document ---
Author Name [facility] Organization [facility] Care Team Providers Care Satellite Tv Installer Name Role Phone [facility] Unavailable Unavailable Problems Combined list of problems from Department of Defense and Veterans Affairs facilities. It does not include entries that were removed or entered in error. Problem Status Onset Date Problem Type Date of Resolution Comments Source Encounter for issue of other medical certificate Inactive 03/21/20 17 Condition DoD gastroenteritis Inactive 04/23/20 10 Condition DoD Bilateral metatarsalgia Active Condition [facility] Exposure to Potentially Hazardous Substance ([facility] [id number]) Active Condition Mar 09 4 Entered By: MEIR LYON Comment: [place] [employer]/Airborne Hazards/Deplet ed Uranium Examinations Complete. [facility] Idiopathic chronic neuropathy Active Condition [facility] Pain of joint of both feet Active Condition [facility] Paraesthesia of foot Active Condition [facility] Right knee pain Active [facility] Vitamin D deficiency Active Condition [facility] skin: rash [as Sx] Active Condition DoD dermatitis Active Condition [facility] Diagnosis: ICD-10-CM F43.10 Post-traumatic stress disorder, unspecified Active Diagnosis [facility] Diagnosis: ICD-10-CM F43.12 Post-traumatic stress disorder, chronic Active Diagnosis [facility] Diagnosis: ICD-10-CM Z77.012 Contact with and (suspected) exposure to uranium Active Diagnosis [facility] Diagnosis: ICD-10-CM Z00.01 Encounter for general adult medical exam w abnormal findings Active Diagnosis [facility] Diagnosis: ICD-10-CM R41.840 Attention and concentration deficit Active Diagnosis [facility] Diagnosis: ICD-10-CM M79.673 Pain in unspecified foot Active Diagnosis 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 Diagnosis: ICD-10-CM Z87.820 Personal history of traumatic brain injury Active Diagnosis [facility] Diagnosis: ICD-10-CM G43.909 Migraine, unsp, not intractable, without status migrainosus Active Diagnosis [facility] Diagnosis: ICD-10-CM F41.9 Anxiety disorder, unspecified Active Diagnosis [facility] Diagnosis: ICD-10-CM Z13.9 Encounter for screening, unspecified Active Diagnosis [facility] Diagnosis: ICD-10-CM Z65.9 Problem related to unspecified psychosocial circumstances Active Diagnosis [facility] Diagnosis: ICD-10-CM Z71.89 Other specified counseling Active Diagnosis [facility] Diagnosis: ICD-10-CM E66.3 Overweight Active Diagnosis [facility] Diagnosis: ICD-10-CM E55.9 Vitamin D deficiency, unspecified Active Diagnosis [facility] Diagnosis: ICD-10-CM Z77.29 Contact with and exposure to other hazardous substances Active Diagnosis [facility] Medications Combined list of outpatient medications from Department of Defense and [facility] Affairs facilities.Medications provided include 1) outpatient medications from the last 15 months, and 2) patient-reported medications. Medication Details Route Status Patient Instructions Prescription Expires Prescription Number Last Dispense Date Ordering Provider Order Date Order Qty Source ALBUTEROL 90MCG/ACTUA T (CFC-F) INHL,ORAL,8 .5GM DOSE COUNTER INHALE 2 PUFFS BY MOUTH EVERY 4 HOURS NEEDED RESPIR ATORY (INHAL ATION) ACTIVE LUCIO MELLO 2023 [facility] CHOLECALCIF HORTENCIA 25MCG (1,000UNIT) TAB TAKE ONE TABLET BY MOUTH DAILY ORAL ACTIVE 09/17/2024 [id number] LUCIO MELLO JOEL 2023 100 [facility] DICLOFENAC NA 1% GEL,TOP APPLY 2 GRAMS TOPICALL Y FOUR TIMES A DAY -DON'T EXCEED 16 GRAMS DAILY TO ANY AFFECTED LEG AREA. DON'T EXCEED 8 GRAMS DAILY TO ANY AFFECTED ARM AREA. DON'T EXCEED A TOTAL DOSE OF 32 GRAMS DAILY OVER ALL AREAS. *USE DOSING CARD TO MEASURE DOSE.* APPLY TO FOOT/FEE T 4 TIMES A DAY,. -DON'T EXCEED 16 GRAMS DAILY TO ANY AFFECTED LEG AREA. DON'T EXCEED 8 GRAMS DAILY TO ANY AFFECTED ARM AREA. DON'T EXCEED A TOTAL DOSE OF 32 GRAMS DAILY OVER ALL AREAS. *USE DOSING CARD TO MEASURE DOSE.* APPLY TO FOOT/FEE T 4 TIMES A DAY,. TOPICA L ACTIVE 10/23/2024 [id number] ROSY HANSON J 2023 300 [facility] DILTIAZEM (EQV-TIAZAC AB4) 360MG 24HR CAP TAKE 1 CAPSULE BY MOUTH EVERY DAY ORAL ACTIVE LUCIO MELLO 2023 [facility] ERENUMAB-AO OE 70MG/ML AUTOINJECTO R,1ML INJECT 1 ML UNDER THE SKIN EVERY MONTH SUBCUT ANEOUS ACTIVE 02/02/2025 [id number] ME BECCA GARCÍA 2023 1 [facility] ERENUMAB-AO OE 70MG/ML AUTOINJECTO R,1ML INJECT 1 ML UNDER THE SKIN ONCE PER MONTH FOR MIGRAINE PREVENTI ON SUBCUT ANEOUS DISCONT INUED 02/07/2024 [id number] MANOJ MARLEY E 2023 3 [facility] MAGNESIUM OXIDE 400MG TAB TAKE ONE TABLET BY MOUTH TWICE A DAY ORAL ACTIVE LUCIO MELLO 2023 [facility] NITROGLYCER IN 0.4MG TAB,SUBLING UAL DISSOLVE ONE TABLET UNDER THE TONGUE EVERY 5 MINUTES NEEDED SUBLIN GUAL ACTIVE LUCIO MELLO 2023 [facility] RANOLAZINE 500MG TAB,SA TAKE ONE TABLET BY MOUTH DAILY ORAL ACTIVE LUCIO MELLO 2023 [facility] RIZATRIPTAN BENZOATE 10MG TAB TAKE ONE TABLET BY MOUTH DIRECTED NEEDED FOR MIGRAINE S. MAX DOSE 2 IN 24 HOURS ORAL ACTIVE 02/02/2025 [id number] 5 ME BECCA GARCÍA 2023 12 [facility] RIZATRIPTAN BENZOATE 10MG TAB TAKE ONE TABLET BY MOUTH EVERY DAY NEEDED ORAL ACTIVE LUCIO MELLO 2023 [facility] Allergies, Adverse Reactions, Alerts Combined list of allergies from Department of Defense and Veterans Affairs facilities. It does not include entries that were removed or entered in error. Substance Category Reaction Severity Reaction type Status Date Reported Comments Source PENICILLIN Propensity to adverse reactions to drug (finding) Eruption, Nausea and vomiting active 4 [facility] PENICILLINS Drug allergy (disorder) active 8 [employer] SULFA DRUGS Propensity to adverse reactions to drug (finding) Eruption active 4 [facility] VICODIN Drug allergy (disorder) active [address] [place] [address] VICODIN Propensity to adverse reactions to drug (finding) Urticaria active 4 [facility] Immunizations Combined list of available immunizations from the Department of Defense and Veterans Affairs facilities. Immunization Series Date Given Administered By Site Reaction Lot Number CVX Code Drug Bellows Tester Status Comments Source COVID-19 (MODERNA), MRNA, LNP-S, PF, 50 MCG/0.5 ML (AGES 12+ YEARS) 4 2023 312 complet ed [facility] INFLUENZA, RECOMBINANT, TRIVALENT, PF 1 2023 155 complet ed [facility] TDAP 3 2023 115 complet [facility] INFLUENZA, RECOMBINANT, QUADRIVALENT, PF 1 2022 185 complet ed [facility] TDAP 2 2022 115 complet [facility] INFLUENZA, SPLIT VIRUS, QUADRIVALENT, PF 1 2021 150 complet [facility] COVID-19 (MODERNA), MRNA, LNP-S, PF, 100 MCG/0.5ML DOSE OR 50 MCG/0.25ML DOSE 3 2020 207 complet [facility] INFLUENZA, RECOMBINANT, QUADRIVALENT, PF 1 2020 185 complet [facility] COVID-19 (PFIZER), MRNA, LNP-S, PF, 30 MCG/0.3 ML DOSE 2 2020 208 complet [facility] COVID-19 (PFIZER), MRNA, LNP-S, PF, 30 MCG/0.3 ML DOSE 1 2020 208 complet [facility] INFLUENZA, SPLIT VIRUS, QUADRIVALENT, PRESERVATIVE 1 2019 158 complet ed [facility] influenza, injectable, quadrivalent, contains preservative 18 2018 [id number] 158 Seqirus (SEQ) complet ed influenza , injectabl e, quadrival ent, contains preservat osmin DoD Influenza, injectable, quadrivalent, preservative free 17 2017 [id number] 150 [employer] (SEQ) comple t ed Influenza , injectabl e, quadrival ent, preservat osmin free DoD Influenza, injectable, quadrivalent, preservative free 1 2017 [id number] 150 [employer] (SEQ) comple t ed Influenza , injectabl e, quadrival ent, preservat osmin free DoD Influenza, injectable, Madin Mulberry Canine Kidney, quadrivalent with preservative 16 2016 [id number] 186 [employer] (SEQ) comple t ed Influenza , injectabl e, Madin Dee Canine Kidney, quadrival ent with preservat osmin DoD measles, mumps and rubella virus vaccine 0 2016 03 () Not Given measles, mumps and rubella virus vaccine DoD anthrax vaccine 5 2016 [id number] 24 [facility]) complet ed anthrax vaccine DoD typhoid Vi capsular polysaccharid e vaccine 4 2016 [id number] 101 Sanofi Pasteur ([facility]) complet ed typhoid Vi capsular polysacch aride vaccine DoD Influenza, seasonal, injectable, preservative free 1 2015 [id number] 140 Se[employer] (SEQ) comple t ed Influenza , seasonal, injectabl e, preservat osmin free DoD Influenza, seasonal, injectable, preservative free 1 2014 [id number] 140 [employer] (CSL) complet ed Influenza , seasonal, injectabl e, preservat osmin free DoD measles, mumps and rubella virus vaccine 0 2014 03 () Not Given measles, mumps and rubella virus vaccine DoD Influenza, seasonal, injectable 1 2013 [id number] 141 Nov[employer]is [employer] l Emmanuel. (NOV) complet ed Influenza , seasonal, injectabl e DoD MMR 1 2013 03 complet ed [facility] TDAP 1 2013 115 complet ed [facility] Influenza, seasonal, injectable, preservative free 12 2012 [id number] 140 Novartis GigaCret[employer] Emmanuel. (NOV) complet ed Influenza , seasonal, injectabl e, preservat osmin free DoD tetanus toxoid, reduced diphtheria toxoid, and acellular pertu is vaccine, adsorbed 0 2011 [id number] 115 Sanofi Pasteur ([facility]) complet ed tetanus toxoid, reduced diphtheri a toxoid, and acellular pertussis vaccine, adsorbed DoD Influenza, seasonal, injectable 1 2011 [id number] 141 [employer] ([facility]) complet ed Influenza , seasonal, injectabl e DoD Influenza, seasonal, injectable, preservative free 10 2010 [id number] 140 Sanofi Pasteur ([facility]) complet ed Influenza , seasonal, injectabl e, preservat osmin free DoD anthrax vaccine 4 2010 [id number] 24 [facility] ([facility]) complet ed anthrax vaccine DoD hepatitis B vaccine, adult dosage 3 2010 [id number] 43 [facility] ([facility]) complet ed hepatitis B vaccine, adult dosage DoD influenza virus vaccine, split virus (incl. purified surface antigen)-reti red CODE 1 2009 [id number] [address] [facility] [employer] ([facility]) complet ed influenza virus vaccine, split virus (incl. purified surface antigen)- retired CODE DoD hepatitis B vaccine, adult dosage 2 2009 [id number] 43 Merck (MSD) complet ed hepatitis B vaccine, adult dosage DoD anthrax vaccine 3 2009 [id number] 24 [facility] ([facility]) complet ed anthrax vaccine DoD hepatitis B vaccine, adult dosage 1 2009 [id number] 43 Merck (MSD) complet ed hepatitis B vaccine, adult dosage DoD typhoid Vi capsular polysaccharid e vaccine 1 2009 [id number] 101 Sanofi Pasteur ([facility]) complet ed typhoid Vi capsular polysacch aride vaccine DoD Novel influenza-H1N 1-09, preservative- free, injectable 1 2009 [id number] 126 Novartis GigaCretetica l [employer]. (NOV) complet ed Novel influenza -G6X0-80, preservat osmin-free, injectabl e DoD influenza virus vaccine, split virus (incl. purified surface antigen)-reti red CODE 1 2008 [id number] 15 [facility] (B) complet ed influenza virus vaccine, split virus (incl. purified surface antigen)- retired CODE DoD influenza virus vaccine, split virus (incl. purified surface antigen)-reti red CODE 1 2007 [id number] 15 Sanofi Pasteur ([facility]) complet ed influenza virus vaccine, split virus (incl. purified surface antigen)- retired CODE DoD influenza virus vaccine, split virus (incl. purified surface antigen)-reti red CODE 1 2006 [id number] 15 Sanofi Pasteur ([facility]) complet ed influenza virus vaccine, split virus (incl. purified surface antigen)- retired CODE DoD influenza virus vaccine, split virus (incl. purified surface antigen)-reti red CODE 1 2005 [id number] 15 Sanofi Pasteur ([facility]) complet ed influenza virus vaccine, split virus (incl. purified surface antigen)- retired CODE DoD influenza virus vaccine, live, attenuated, for intranasal use 0 2004 [id number] [employer] ([facility]) complet ed influenza virus vaccine, live, attenuate d, for intranasa l use DoD anthrax vaccine 2 2003 [id number] 24 [facility] ([facility]) complet ed anthrax vaccine DoD typhoid vaccine, parenteral, other than acetone-kille d, dried 0 2003 [id number] 41 Sanofi Pasteur ([facility]) complet ed typhoid vaccine, parentera l, other than acetone-k illed, dried DoD anthrax vaccine 1 2002 24 [facility] ([facility]) complet ed anthrax vaccine DoD vaccinia (smallpox) vaccine 0 2002 75 () complet ed vaccinia (smallpox ) vaccine DoD influenza virus vaccine, whole virus 0 2002 [id number] 16 [employer] (PW) complet ed influenza virus vaccine, whole virus DoD influenza virus vaccine, whole virus 0 2001 [id number] 16 Sanofi Pasteur ([facility]) complet ed influenza virus vaccine, whole virus DoD tetanus and diphtheria toxoids, adsorbed, preservative free, for adult use (2 Lf of tetanus toxoid and 2 Lf of diphtheria toxoid) 0 2001 [id number] 09 Sanofi Pasteur ([facility]) complet ed tetanus and diphtheri a toxoids, adsorbed, preservat osmin free, for adult use (2 Lf of tetanus toxoid and 2 Lf of diphtheri a toxoid) DoD yellow fever vaccine 0 2001 [id number] 37 Sanofi Pasteur ([facility]) complet ed yellow fever vaccine DoD typhoid vaccine, parenteral, other than acetone-kille d, dried 0 2001 [id number] 41 Sanofi Pasteur ([facility]) complet ed typhoid vaccine, parentera l, other than acetone-k illed, dried DoD hepatitis A vaccine, adult dosage 2 2001 [id number] Merck (MSD) complet ed hepatitis A vaccine, adult dosage DoD measles, mumps and rubella virus vaccine 0 2000 03 () Not Given measles, mumps and rubella virus vaccine DoD varicella virus vaccine 1 2000 21 () Not Given varicella virus vaccine DoD hepatitis A vaccine, adult dosage 1 2000 [id number] 52 Merck (MSD) complet ed hepatitis A vaccine, adult dosage DoD poliovirus vaccine, inactivated 0 2000 [id number] 10 Sanofi Pasteur ([facility]) complet ed polioviru s vaccine, inactivat ed DoD influenza virus vaccine, whole virus 0 2000 [id number] 16 Magdi-Cony ([facility]AL) complet ed influenza virus vaccine, whole virus DoD meningococcal polysaccharid e vaccine (MPSV4) 0 2000 [id number] [employer] (CON) complet ed meningoco ccal polysacch aride vaccine (MPSV4) DoD Results Combined list of recent chemistry, hematology and other laboratory results from Department of Defense and Veterans Affairs, ranging from 15 months to all on record, depending upon the facility. Order Name Results Value Reference Range Date Interpretation Specimen Comments Source STUDY URANIUM OUTPATIE NT SPOT URINE VOLUME OF URINE 119 mL 03/09 Specimen Type: URINE, SPOT No comment entered. Ordering Provider: Chaparro ANTON Report Released Date/Time: Mar 14, 2024 05:40 AM Reporting Lab: [place] [id number] Performing Lab: [address] STUDY URANIUM OUTPATIE NT SPOT URINE CREATININE [MASS/VOLU ME] IN URINE 29.33 mg/dL 20 - 320 03/09 Specimen Type: URINE, SPOT No comment entered. Ordering Provider: Chaparro ANTON Report Released Date/Time: Mar 14, 2024 05:40 AM Reporting Lab: [address] [address] Performing Lab: [facility] [address] [place] [address] [facility] STUDY URANIUM OUTPATIE NT SPOT URINE COLLECTION DURATION OF URINE spot 03/09 Specimen Type: URINE, SPOT No comment entered. Ordering Provider: Chaparro ANTON Report Released Date/Time: Mar 14, 2024 05:40 AM Reporting Lab: [address] Performing Lab: [place] [id number] [facility] URANIUM OUTPATIE NT SPOT URINE URANIUM/CR EATININE [MASS RATIO] IN URINE 0.0218 0.001 - 0.050 03/09 Specimen Type: URINE, SPOT No comment entered. Ordering Provider: Chaparro ANTON Report Released Date/Time: Mar 14, 2024 05:40 AM Reporting Lab: [place] [id number] Performing Lab: [place] [id number] [facility] URANIUM OUTPATIE NT SPOT URINE URANIUM 235/URANIU M 238 [MASS RATIO] IN URINE BELOW DETECTIO N LIMIT 0.006 - 0.009 03/09 Specimen Type: URINE, SPOT No comment entered. Ordering Provider: Chaparro ANTON Report Released Date/Time: Mar 14, 2024 05:40 AM Reporting Lab: [address] Performing Lab: [place] [id number] [facility] STUDY URANIUM OUTPATIE NT SPOT URINE URANIUM [MASS/VOLU ME] IN URINE 0.0064 ug/L 0 - 0.0580 03/09 Specimen Type: URINE, SPOT No comment entered. Ordering Provider: Chaparro ANTON Report Released Date/Time: Mar 14, 2024 05:40 AM Reporting Lab: [address] Performing Lab: [place] [id number] [facility] CBC W/DIFF LEUKOCYTES [#/VOLUME] IN BLOOD BY AUTOMATED COUNT 9.4 10*3/uL 4.0 - 11.0 09/10 Specimen Type: BLOOD No comment entered. Ordering Provider: LUTHER MELLO Report Released Date/Time: September 09, 2023 02:25 PM Reporting Lab: [address] [address] Performing Lab: [address] [address] [facility] CBC W/DIFF ERYTHROCYT ES [#/VOLUME] IN BLOOD BY AUTOMATED COUNT 4.56 10*6/uL 4.00 - 5.30 09/10 Specimen Type: BLOOD No comment entered. Ordering Provider: LUTHER MELLO Report Released Date/Time: September 09, 2023 02:25 PM Reporting Lab: [address] [address] Performing Lab: [address] [address] [facility] CBC W/DIFF HEMOGLOBIN [MASS/VOLU ME] IN BLOOD 14.4 g/dL 12.0 - 16.0 09/10 Specimen Type: BLOOD No comment entered. Ordering Provider: LUTHER MELLO Report Released Date/Time: September 09, 2023 02:25 PM Reporting Lab: [address] [address] Performing Lab: [address] [address] [facility] CBC W/DIFF HEMATOCRIT [VOLUME FRACTION] OF BLOOD BY AUTOMATED COUNT 41.8 36.0 - 48.0 09/10 Specimen Type: BLOOD No comment entered. Ordering Provider: LUTHER MELLO Report Released Date/Time: September 09, 2023 02:25 PM Reporting Lab: [address] [address] Performing Lab: [address] [address] [facility] CBC W/DIFF MCV [ENTITIC VOLUME] BY AUTOMATED COUNT 91.7 fL 82 - 99 09/10 Specimen Type: BLOOD No comment entered. Ordering Provider: LUTHER MELLO Report Released Date/Time: September 09, 2023 02:25 PM Reporting Lab: [facility] [address] [place] [phone] Performing Lab: [facility] [address] [place] [address] [facility] CBC W/DIFF MCHC [MASS/VOLU ME] BY AUTOMATED COUNT 31.6 pg 27 - 34 09/10 Specimen Type: BLOOD No comment entered. Ordering Provider: LUTHER MELLO Report Released Date/Time: September 09, 2023 02:25 PM Reporting Lab: [facility] [address] [place] [address] Performing Lab: [facility] [address] [place] [address] [facility] CBC W/DIFF MCHC [MASS/VOLU ME] BY AUTOMATED COUNT 34.4 g/dL 31 - 37 09/10 Specimen Type: BLOOD No comment entered. Ordering Provider: LUTHER MELLO Report Released Date/Time: September 09, 2023 02:25 PM Reporting Lab: [address] [address] Performing Lab: [address] [address] [facility] CBC W/DIFF PLATELET MEAN VOLUME [ENTITIC VOLUME] IN BLOOD BY AUTOMATED COUNT 11.8 fL 8 - 12 09/10 Specimen Type: BLOOD No comment entered. Ordering Provider: LUTHER MELLO Report Released Date/Time: September 09, 2023 02:25 PM Reporting Lab: [address] [address] Performing Lab: [address] [address] [facility] CBC W/DIFF PLATELETS [#/VOLUME] IN BLOOD BY AUTOMATED COUNT 263 10*3/uL 130 - 400 09/10 Specimen Type: BLOOD No comment entered. Ordering Provider: LUTHER MELLO Report Released Date/Time: September 09, 2023 02:25 PM Reporting Lab: [address] [address] Performing Lab: [address] [address] [facility] CBC W/DIFF ERYTHROCYT E DISTRIBUTI ON WIDTH [RATIO] BY AUTOMATED COUNT 12.1 < 15.0 - 15.0 09/10 Specimen Type: BLOOD No comment entered. Ordering Provider: LUTHER MELLO Report Released Date/Time: September 09, 2023 02:25 PM Reporting Lab: [facility] [address] [facility] [address] Performing Lab: [facility] [address] [facility] [address] [facility] CBC W/DIFF NEUTROPHIL S/100 LEUKOCYTES IN BLOOD BY AUTOMATED COUNT 65.9 09/10 Specimen Type: BLOOD No comment entered. Ordering Provider: LUTHER MELLO Report Released Date/Time: September 09, 2023 02:25 PM Reporting Lab: [facility] [address] [facility] [address] Performing Lab: [facility] [address] [facility] [address] [facility] CBC W/DIFF LYMPHOCYTE S/100 LEUKOCYTES IN BLOOD BY AUTOMATED COUNT 22.8 09/10 Specimen Type: BLOOD No comment entered. Ordering Provider: LUTHER MELLO Report Released Date/Time: September 09, 2023 02:25 PM Reporting Lab: [facility] [address] [facility] [address] Performing Lab: [facility] [address] [facility] [address] [facility] CBC W/DIFF MONOCYTES/ 100 LEUKOCYTES IN BLOOD BY AUTOMATED COUNT 9.4 09/10 Specimen Type: BLOOD No comment entered. Ordering Provider: LUTHER MELLO Report Released Date/Time: September 09, 2023 02:25 PM Reporting Lab: [facility] [address] [facility] [address] Performing Lab: [facility] [address] [facility] [address] [facility] CBC W/DIFF EOSINOPHIL S/100 LEUKOCYTES IN BLOOD BY AUTOMATED COUNT 1.1 09/10 Specimen Type: BLOOD No comment entered. Ordering Provider: LUTHER MELLO Report Released Date/Time: September 09, 2023 02:25 PM Reporting Lab: [facility] [address] [facility] [address] Performing Lab: [facility] [address] [facility] [address] [facility] CBC W/DIFF BASOPHILS/ 100 LEUKOCYTES IN BLOOD BY AUTOMATED COUNT 0.6 09/10 Specimen Type: BLOOD No comment entered. Ordering Provider: LUTHER MELLO Report Released Date/Time: September 09, 2023 02:25 PM Reporting Lab: [facility] [address] [facility] [address] Performing Lab: [facility] [address] [facility] [address] [facility] CBC W/DIFF IMMATURE GRANULOCYT ES/100 LEUKOCYTES IN BLOOD 0.2 09/10 Specimen Type: BLOOD No comment entered. Ordering Provider: LUTHER MELLO Report Released Date/Time: September 09, 2023 02:25 PM Reporting Lab: [facility] [address] [place] [address] Performing Lab: [address] [address] [facility] CBC W/DIFF NEUTROPHIL S [#/VOLUME] IN BLOOD BY AUTOMATED COUNT 6.2 10*3/uL 1.5 - 8.0 09/10 Specimen Type: BLOOD No comment entered. Ordering Provider: LUTHER MELLO Report Released Date/Time: September 09, 2023 02:25 PM Reporting Lab: [facility] [address] [place] [address] Performing Lab: [facility] [address] [place] [address] [facility] [facility]ENTER CBC W/DIFF LYMPHOCYTE S [#/VOLUME] IN BLOOD BY AUTOMATED COUNT 2.1 10*3/uL 1.0 - 4.0 09/10 Specimen Type: BLOOD No comment entered. Ordering Provider: LUTHER MELLO Report Released Date/Time: September 09, 2023 02:25 PM Reporting Lab: [facility] [address] [place] [phone] Performing Lab: [facility] [address] [place] [phone] [facility] CBC W/DIFF MONOCYTES [#/VOLUME] IN BLOOD BY AUTOMATED COUNT 0.9 10*3/uL 0.2 - 1.0 09/10 Specimen Type: BLOOD No comment entered. Ordering Provider: LUTHER MELLO Report Released Date/Time: September 09, 2023 02:25 PM Reporting Lab: [address] [address] Performing Lab: [facility] [address] [place] [phone] [facility] CBC W/DIFF EOSINOPHIL S [#/VOLUME] IN BLOOD BY AUTOMATED COUNT 0.1 10*3/uL 0 - 0.4 09/10 Specimen Type: BLOOD No comment entered. Ordering Provider: LUTHER MELLO Report Released Date/Time: September 09, 2023 02:25 PM Reporting Lab: [address] [address] Performing Lab: [facility] [address] [place] [phone] [facility] CBC W/DIFF BASOPHILS [#/VOLUME] IN BLOOD BY AUTOMATED COUNT 0.1 10*3/uL 0 - 0.2 09/10 Specimen Type: BLOOD No comment entered. Ordering Provider: LUTHER MELLO Report Released Date/Time: September 09, 2023 02:25 PM Reporting Lab: [address] [address] Performing Lab: [address] [address] [facility] CBC W/DIFF IMMATURE GRANULOCYT ES/100 LEUKOCYTES IN BLOOD <0.110*3 /uL 0 - 0.5 09/10 Specimen Type: BLOOD No comment entered. Ordering Provider: LUTHER MELLO Report Released Date/Time: September 09, 2023 02:25 PM Reporting Lab: [address] [address] Performing Lab: [facility] [address] [place] [phone] [facility] CBC W/DIFF NUCLEATED ERYTHROCYT ES/100 ERYTHROCYT ES IN BLOOD 0.0 /100{WBC s} 0 - 0.2 09/10 Specimen Type: BLOOD No comment entered. Ordering Provider: LUTHER MELLO Report Released Date/Time: September 09, 2023 02:25 PM Reporting Lab: [address] [address] Performing Lab: [address] [address] [facility] CBC W/DIFF NUCLEATED ERYTHROCYT ES [#/VOLUME] IN BLOOD <0.0110* 3/uL 0 - 0.012 09/10 Specimen Type: BLOOD No comment entered. Ordering Provider: LUTHER MELLO Report Released Date/Time: September 09, 2023 02:25 PM Reporting Lab: [address] [address] Performing Lab: [address] [address] [facility] A1C % HEMOGLOBIN A1C/HEMOGL OBIN.TOTAL IN BLOOD 5.0 0.0 - 5.6 09/10 Specimen Type: BLOOD Comment: Normal: < or = 5.6% Pre-diabete s: 5.7-6.4% Diabetes Mellitus: > or = 6.5% Values obtained from A1C measurement s can vary. For typical A1C assays, a reported value of 7.0 could actually be between 6.72 and 7.28 if measured by a reference method. A reported value of 9.0 could actually be between 8.73 and 9.27. Ref: http://www. ngsp.org/[place] Pdata.asp Ordering Provider: LUTHER MELLO Report Released Date/Time: September 09, 2023 02:25 PM Reporting Lab: [address] [address] Performing Lab: [address] [address] [facility] COMPREHE NSIVE PNL ANION GAP IN SERUM OR PLASMA 5 mmol/L 09/10 Specimen Type: PLASMA Comment: Normal: <150 mg/dL -Borderline High: 1580-199 mg/dL -High: 200-499 mg/dL -Very High: >500 mg/dL eGFR was calculated using the CKD-EPI Creatinine (2020) equation. Low-risk levels (desirable) <200 mg/dL Moderate-ri sk levels (borderline ) 200-239 mg/dL High-risk levels: >= 240 mg/dL Optimal: <100 mg/dL -Near Optimal/Abo ve Optimal: 100-129 mg/dL -Borderline High: 130-159 mg/dL -High: 160-189 mg/dL -Very High: >=190 mg/dL Ordering Provider: LUTHER MELLO Report Released Date/Time: September 09, 2023 02:25 PM Reporting Lab: [address] [address] Performing Lab: [place] [phone] [place] [id number] COMPREHE NSIVE PNL GLOMERULAR FILTRATION RATE/1.73 SQ M.PREDICTE D [VOLUME RATE/AREA] IN SERUM, PLASMA OR BLOOD BY CREATININE -BASED FORMULA (CKD-EPI 2020) 113 mL/min 60 09/10 Specimen Type: PLASMA Comment: Normal: <150 mg/dL -Borderline High: 1580-199 mg/dL -High: 200-499 mg/dL -Very High: >500 mg/dL eGFR was calculated using the CKD-EPI Creatinine (2020) equation. Low-risk levels (desirable) <200 mg/dL Moderate-ri sk levels (borderline ) 200-239 mg/dL High-risk levels: >= 240 mg/dL Optimal: <100 mg/dL -Near Optimal/Abo ve Optimal: 100-129 mg/dL -Borderline High: 130-159 mg/dL -High: 160-189 mg/dL -Very High: >=190 mg/dL Ordering Provider: LUTHER MELLO Report Released Date/Time: September 09, 2023 02:25 PM Reporting Lab: [address] [address] Performing Lab: [place] [phone] [facility] COMPREHE NSIVE PNL GLUCOSE [MASS/VOLU ME] IN SERUM OR PLASMA 75 mg/dL 70 - 99 09/10 Specimen Type: PLASMA Comment: Normal: <150 mg/dL -Borderline High: 1580-199 mg/dL -High: 200-499 mg/dL -Very High: >500 mg/dL eGFR was calculated using the CKD-EPI Creatinine (2020) equation. Low-risk levels (desirable) <200 mg/dL Moderate-ri sk levels (borderline ) 200-239 mg/dL High-risk levels: >= 240 mg/dL Optimal: <100 mg/dL -Near Optimal/Abo ve Optimal: 100-129 mg/dL -Borderline High: 130-159 mg/dL -High: 160-189 mg/dL -Very High: >=190 mg/dL Ordering Provider: LUTHER MELLO Report Released Date/Time: September 09, 2023 02:25 PM Reporting Lab: [address] [address] Performing Lab: [place] [phone] [facility] COMPREHE NSIVE PNL POTASSIUM [MOLES/VOL UME] IN SERUM OR PLASMA 3.8 mmol/L 3.5 - 4.7 09/10 Specimen Type: PLASMA Comment: Normal: <150 mg/dL -Borderline High: 1580-199 mg/dL -High: 200-499 mg/dL -Very High: >500 mg/dL eGFR was calculated using the CKD-EPI Creatinine (2020) equation. Low-risk levels (desirable) <200 mg/dL Moderate-ri sk levels (borderline ) 200-239 mg/dL High-risk levels: >= 240 mg/dL Optimal: <100 mg/dL -Near Optimal/Abo ve Optimal: 100-129 mg/dL -Borderline High: 130-159 mg/dL -High: 160-189 mg/dL -Very High: >=190 mg/dL Ordering Provider: LUTHER MELLO Report Released Date/Time: September 09, 2023 02:25 PM Reporting Lab: [address] [address] Performing Lab: [address] [address] [facility] COMPREHE NSIVE PNL SODIUM [MOLES/VOL UME] IN SERUM OR PLASMA 138 mmol/L 136 - 145 09/10 Specimen Type: PLASMA Comment: Normal: <150 mg/dL -Borderline High: 1580-199 mg/dL -High: 200-499 mg/dL -Very High: >500 mg/dL eGFR was calculated using the CKD-EPI Creatinine (2020) equation. Low-risk levels (desirable) <200 mg/dL Moderate-ri sk levels (borderline ) 200-239 mg/dL High-risk levels: >= 240 mg/dL Optimal: <100 mg/dL -Near Optimal/Abo ve Optimal: 100-129 mg/dL -Borderline High: 130-159 mg/dL -High: 160-189 mg/dL -Very High: >=190 mg/dL Ordering Provider: LUTHER MELLO Report Released Date/Time: September 09, 2023 02:25 PM Reporting Lab: [address] [address] Performing Lab: [address] [address] [facility] COMPREHE NSIVE PNL BILIRUBIN. TOTAL [MASS/VOLU ME] IN SERUM OR PLASMA 0.5 mg/dL 0.2 - 1.2 09/10 Specimen Type: PLASMA Comment: Normal: <150 mg/dL -Borderline High: 1580-199 mg/dL -High: 200-499 mg/dL -Very High: >500 mg/dL eGFR was calculated using the CKD-EPI Creatinine (2020) equation. Low-risk levels (desirable) <200 mg/dL Moderate-ri sk levels (borderline ) 200-239 mg/dL High-risk levels: >= 240 mg/dL Optimal: <100 mg/dL -Near Optimal/Abo ve Optimal: 100-129 mg/dL -Borderline High: 130-159 mg/dL -High: 160-189 mg/dL -Very High: >=190 mg/dL Ordering Provider: LUTHER MELLO Report Released Date/Time: September 09, 2023 02:25 PM Reporting Lab: [address] [address] Performing Lab: [address] [address] [facility] COMPREHE NSIVE PNL PROTEIN [MASS/VOLU ME] IN SERUM OR PLASMA 6.9 g/dL 5.7 - 8.2 09/10 Specimen Type: PLASMA Comment: Normal: <150 mg/dL -Borderline High: 1580-199 mg/dL -High: 200-499 mg/dL -Very High: >500 mg/dL eGFR was calculated using the CKD-EPI Creatinine (2020) equation. Low-risk levels (desirable) <200 mg/dL Moderate-ri sk levels (borderline ) 200-239 mg/dL High-risk levels: >= 240 mg/dL Optimal: <100 mg/dL -Near Optimal/Abo ve Optimal: 100-129 mg/dL -Borderline High: 130-159 mg/dL -High: 160-189 mg/dL -Very High: >=190 mg/dL Ordering Provider: LUTHER MELLO Report Released Date/Time: September 09, 2023 02:25 PM Reporting Lab: [place] [phone] Performing Lab: [place] [phone] [place] [id number] COMPREHE NSIVE PNL ALBUMIN [MASS/VOLU ME] IN SERUM OR PLASMA 4.7 g/dL 3.4 - 5.0 09/10 Specimen Type: PLASMA Comment: Normal: <150 mg/dL -Borderline High: 1580-199 mg/dL -High: 200-499 mg/dL -Very High: >500 mg/dL eGFR was calculated using the CKD-EPI Creatinine (2020) equation. Low-risk levels (desirable) <200 mg/dL Moderate-ri sk levels (borderline ) 200-239 mg/dL High-risk levels: >= 240 mg/dL Optimal: <100 mg/dL -Near Optimal/Abo ve Optimal: 100-129 mg/dL -Borderline High: 130-159 mg/dL -High: 160-189 mg/dL -Very High: >=190 mg/dL Ordering Provider: LUTHER MELLO Report Released Date/Time: September 09, 2023 02:25 PM Reporting Lab: [place] [phone] Performing Lab: [place] [phone] [place] [address] COMPREHE NSIVE PNL ALKALINE PHOSPHATAS E [ENZYMATIC ACTIVITY/V OLUME] IN SERUM OR PLASMA 56 U/L 45 - 117 09/10 Specimen Type: PLASMA Comment: Normal: <150 mg/dL -Borderline High: 1580-199 mg/dL -High: 200-499 mg/dL -Very High: >500 mg/dL eGFR was calculated using the CKD-EPI Creatinine (2020) equation. Low-risk levels (desirable) <200 mg/dL Moderate-ri sk levels (borderline ) 200-239 mg/dL High-risk levels: >= 240 mg/dL Optimal: <100 mg/dL -Near Optimal/Abo ve Optimal: 100-129 mg/dL -Borderline High: 130-159 mg/dL -High: 160-189 mg/dL -Very High: >=190 mg/dL Ordering Provider: LUTHER MELLO Report Released Date/Time: September 09, 2023 02:25 PM Reporting Lab: [address] [address] Performing Lab: [address] [address] [facility] COMPREHE NSIVE PNL ALANINE AMINOTRANS FERASE [ENZYMATIC ACTIVITY/V OLUME] IN SERUM OR PLASMA 18 U/L 10 - 65 09/10 Specimen Type: PLASMA Comment: Normal: <150 mg/dL -Borderline High: 1580-199 mg/dL -High: 200-499 mg/dL -Very High: >500 mg/dL eGFR was calculated using the CKD-EPI Creatinine (2020) equation. Low-risk levels (desirable) <200 mg/dL Moderate-ri sk levels (borderline ) 200-239 mg/dL High-risk levels: >= 240 mg/dL Optimal: <100 mg/dL -Near Optimal/Abo ve Optimal: 100-129 mg/dL -Borderline High: 130-159 mg/dL -High: 160-189 mg/dL -Very High: >=190 mg/dL Ordering Provider: LUTHER MELLO Report Released Date/Time: September 09, 2023 02:25 PM Reporting Lab: [address] [address] Performing Lab: [address] [address] [facility] NSIVE PNL ASPARTATE AMINOTRANS FERASE [ENZYMATIC ACTIVITY/V OLUME] IN SERUM OR PLASMA 13 U/L 10 - 37 09/10 Specimen Type: PLASMA Comment: Normal: <150 mg/dL -Borderline High: 1580-199 mg/dL -High: 200-499 mg/dL -Very High: >500 mg/dL eGFR was calculated using the CKD-EPI Creatinine (2020) equation. Low-risk levels (desirable) <200 mg/dL Moderate-ri sk levels (borderline ) 200-239 mg/dL High-risk levels: >= 240 mg/dL Optimal: <100 mg/dL -Near Optimal/Abo ve Optimal: 100-129 mg/dL -Borderline High: 130-159 mg/dL -High: 160-189 mg/dL -Very High: >=190 mg/dL Ordering Provider: LUTHER MELLO Report Released Date/Time: September 09, 2023 02:25 PM Reporting Lab: [address] [address] Performing Lab: [address] [address] [facility] COMPREHE NSIVE PNL UREA NITROGEN [MASS/VOLU ME] IN SERUM OR PLASMA 13 mg/dL 7 - 09/10 Specimen Type: PLASMA Comment: Normal: <150 mg/dL -Borderline High: 1580-199 mg/dL -High: 200-499 mg/dL -Very High: >500 mg/dL eGFR was calculated using the CKD-EPI Creatinine (2020) equation. Low-risk levels (desirable) <200 mg/dL Moderate-ri sk levels (borderline ) 200-239 mg/dL High-risk levels: >= 240 mg/dL Optimal: <100 mg/dL -Near Optimal/Abo ve Optimal: 100-129 mg/dL -Borderline High: 130-159 mg/dL -High: 160-189 mg/dL -Very High: >=190 mg/dL Ordering Provider: LUTHER MELLO Report Released Date/Time: September 09, 2023 02:25 PM Reporting Lab: [address] [address] Performing Lab: [address] [address] [facility] COMPREHE NSIVE PNL CALCIUM, TOTAL 9.1 mg/dL 8.7 - 10.4 09/10 Specimen Type: PLASMA Comment: Normal: <150 mg/dL -Borderline High: 1580-199 mg/dL -High: 200-499 mg/dL -Very High: >500 mg/dL eGFR was calculated using the CKD-EPI Creatinine (2020) equation. Low-risk levels (desirable) <200 mg/dL Moderate-ri sk levels (borderline ) 200-239 mg/dL High-risk levels: >= 240 mg/dL Optimal: <100 mg/dL -Near Optimal/Abo ve Optimal: 100-129 mg/dL -Borderline High: 130-159 mg/dL -High: 160-189 mg/dL -Very High: >=190 mg/dL Ordering Provider: LUTHER MELLO Report Released Date/Time: September 09, 2023 02:25 PM Reporting Lab: [address] [address] Performing Lab: [address] [address] [facility] COMPREH NSIVE PNL CARBON DIOXIDE, TOTAL [MOLES/VOL UME] IN SERUM OR PLASMA 24.0 mmol/L 21.0 - 32.0 09/10 Specimen Type: PLASMA Comment: Normal: <150 mg/dL -Borderline High: 1580-199 mg/dL -High: 200-499 mg/dL -Very High: >500 mg/dL eGFR was calculated using the CKD-EPI Creatinine (2020) equation. Low-risk levels (desirable) <200 mg/dL Moderate-ri sk levels (borderline ) 200-239 mg/dL High-risk levels: >= 240 mg/dL Optimal: <100 mg/dL -Near Optimal/Abo ve Optimal: 100-129 mg/dL -Borderline High: 130-159 mg/dL -High: 160-189 mg/dL -Very High: >=190 mg/dL Ordering Provider: LUTHER MELLO Report Released Date/Time: September 09, 2023 02:25 PM Reporting Lab: [address] [address] Performing Lab: [address] [address] [facility] COMPREHE NSIVE PNL CHLORIDE [MOLES/VOL UME] IN SERUM OR PLASMA 109 mmol/L 98 - 109 09/10 Specimen Type: PLASMA Comment: Normal: <150 mg/dL -Borderline High: 1580-199 mg/dL -High: 200-499 mg/dL -Very High: >500 mg/dL eGFR was calculated using the CKD-EPI Creatinine (2020) equation. Low-risk levels (desirable) <200 mg/dL Moderate-ri sk levels (borderline ) 200-239 mg/dL High-risk levels: >= 240 mg/dL Optimal: <100 mg/dL -Near Optimal/Abo ve Optimal: 100-129 mg/dL -Borderline High: 130-159 mg/dL -High: 160-189 mg/dL -Very High: >=190 mg/dL Ordering Provider: LUTHER MELLO Report Released Date/Time: September 09, 2023 02:25 PM Reporting Lab: [address] [address] Performing Lab: [address] [address] [facility] COMPREHE NSIVE PNL CREATININE [MASS/VOLU ME] IN URINE 0.65 mg/dL 0.51 - 0.95 09/10 Specimen Type: PLASMA Comment: Normal: <150 mg/dL -Borderline High: 1580-199 mg/dL -High: 200-499 mg/dL -Very High: >500 mg/dL eGFR was calculated using the CKD-EPI Creatinine (2020) equation. Low-risk levels (desirable) <200 mg/dL Moderate-ri sk levels (borderline ) 200-239 mg/dL High-risk levels: >= 240 mg/dL Optimal: <100 mg/dL -Near Optimal/Abo ve Optimal: 100-129 mg/dL -Borderline High: 130-159 mg/dL -High: 160-189 mg/dL -Very High: >=190 mg/dL Ordering Provider: LUTHER MELLO Report Released Date/Time: September 09, 2023 02:25 PM Reporting Lab: [address] [address] Performing Lab: [address] [address] [facility] LIPID PNL CHOLESTERO L IN HDL [MASS/VOLU ME] IN SERUM OR PLASMA 49.8 mg/dL 60 09/10 L Specimen Type: PLASMA Comment: Normal: <150 mg/dL -Borderline High: 1580-199 mg/dL -High: 200-499 mg/dL -Very High: >500 mg/dL eGFR was calculated using the CKD-EPI Creatinine (2020) equation. Low-risk levels (desirable) <200 mg/dL Moderate-ri sk levels (borderline ) 200-239 mg/dL High-risk levels: >= 240 mg/dL Optimal: <100 mg/dL -Near Optimal/Abo ve Optimal: 100-129 mg/dL -Borderline High: 130-159 mg/dL -High: 160-189 mg/dL -Very High: >=190 mg/dL Ordering Provider: LUTHER MELLO Report Released Date/Time: September 09, 2023 02:25 PM Reporting Lab: [address] [address] Performing Lab: [address] [address] [facility] LIPID PNL TRIGLYCERI DE [MASS/VOLU ME] IN SERUM OR PLASMA 85 mg/dL 09/10 Specimen Type: PLASMA Comment: Normal: <150 mg/dL -Borderline High: 1580-199 mg/dL -High: 200-499 mg/dL -Very High: >500 mg/dL eGFR was calculated using the CKD-EPI Creatinine (2020) equation. Low-risk levels (desirable) <200 mg/dL Moderate-ri sk levels (borderline ) 200-239 mg/dL High-risk levels: >= 240 mg/dL Optimal: <100 mg/dL -Near Optimal/Abo ve Optimal: 100-129 mg/dL -Borderline High: 130-159 mg/dL -High: 160-189 mg/dL -Very High: >=190 mg/dL Ordering Provider: LUTHER MELLO Report Released Date/Time: September 09, 2023 02:25 PM Reporting Lab: [address] [address] Performing Lab: [address] [address] [facility] LIPID PNL CHOLESTERO L IN LDL [MASS/VOLU ME] IN SERUM OR PLASMA BY DIRECT ASSAY [facility] 09/10 Specimen Type: PLASMA Comment: Normal: <150 mg/dL -Borderline High: 1580-199 mg/dL -High: 200-499 mg/dL -Very High: >500 mg/dL eGFR was calculated using the CKD-EPI Creatinine (2020) equation. Low-risk levels (desirable) <200 mg/dL Moderate-ri sk levels (borderline ) 200-239 mg/dL High-risk levels: >= 240 mg/dL Optimal: <100 mg/dL -Near Optimal/Abo ve Optimal: 100-129 mg/dL -Borderline High: 130-159 mg/dL -High: 160-189 mg/dL -Very High: >=190 mg/dL Ordering Provider: LUTHER MELLO Report Released Date/Time: September 09, 2023 02:25 PM Reporting Lab: [address] [address] Performing Lab: [address] [address] [facility] LIPID PNL CHOLESTERO L [MASS/VOLU ME] IN SERUM OR PLASMA 163 mg/dL 09/10 Specimen Type: PLASMA Comment: Normal: <150 mg/dL -Borderline High: 1580-199 mg/dL -High: 200-499 mg/dL -Very High: >500 mg/dL eGFR was calculated using the CKD-EPI Creatinine (2020) equation. Low-risk levels (desirable) <200 mg/dL Moderate-ri sk levels (borderline ) 200-239 mg/dL High-risk levels: >= 240 mg/dL Optimal: <100 mg/dL -Near Optimal/Abo ve Optimal: 100-129 mg/dL -Borderline High: 130-159 mg/dL -High: 160-189 mg/dL -Very High: >=190 mg/dL Ordering Provider: LUTHER MELLO Report Released Date/Time: September 09, 2023 02:25 PM Reporting Lab: [address] [address] Performing Lab: [address] [address] [facility] LIPID PNL CHOLESTERO L IN LDL [MASS/VOLU ME] IN SERUM OR PLASMA BY CALCULATIO N 96.2 mg/dL 09/10 Specimen Type: PLASMA Comment: Normal: <150 mg/dL -Borderline High: 1580-199 mg/dL -High: 200-499 mg/dL -Very High: >500 mg/dL eGFR was calculated using the CKD-EPI Creatinine (2020) equation. Low-risk levels (desirable) <200 mg/dL Moderate-ri sk levels (borderline ) 200-239 mg/dL High-risk levels: >= 240 mg/dL Optimal: <100 mg/dL -Near Optimal/Abo ve Optimal: 100-129 mg/dL -Borderline High: 130-159 mg/dL -High: 160-189 mg/dL -Very High: >=190 mg/dL Ordering Provider: LUTHER MELLO Report Released Date/Time: September 09, 2023 02:25 PM Reporting Lab: [address] [address] Performing Lab: [address] [address] [facility] THYROID CASCADE PANEL THYROTROPI N [UNITS/VOL UME] IN SERUM OR PLASMA 1.490 u[IU]/mL 0.550 - 4.780 09/10 Specimen Type: SERUM Comment: Deficiency <20, Insufficien cy 20-30, Sufficiency 30-100, Toxicity >100 ng/mL Ordering Provider: LUTHER MELLO Report Released Date/Time: September 09, 2023 02:25 PM Reporting Lab: [address] [address] Performing Lab: [address] [address] [facility] URINE ALBUMIN/ CREAT ([place] URINE) MICROALBUM IN [MASS/VOLU ME] IN URINE <0.3mg/d L <2.0 - 2.0 09/10 Specimen Type: URINE Comment: MALB/CREAT ratio cannot be calculated- analyte outside linearity. Ordering Provider: LUTHER MELLO Report Released Date/Time: September 09, 2023 02:25 PM Reporting Lab: [address] [address] Performing Lab: [address] [address] [facility] URINE ALBUMIN/ CREAT ([place] URINE) CREATININE [MASS/VOLU ME] IN URINE 30.50 mg/dL 29 - 226 09/10 Specimen Type: URINE Comment: MALB/CREAT ratio cannot be calculated- analyte outside linearity. Ordering Provider: LUTHER MELLO Report Released Date/Time: September 09, 2023 02:25 PM Reporting Lab: [address] [address] Performing Lab: [address] [address] [facility] URINE ALBUMIN/ CREAT ([place] URINE) MICROALBUM IN/CREATIN INE [RATIO] IN URINE commentm g/g <30 - 30 09/10 Specimen Type: URINE Comment: MALB/CREAT ratio cannot be calculated- analyte outside linearity. Ordering Provider: LUTHER MELLO Report Released Date/Time: September 09, 2023 02:25 PM Reporting Lab: [facility] [address] [facility] [address] Performing Lab: [facility] [address] [facility] [address] [facility] VITAMIN D 25-HYDRO XY 25-HYDROXY VITAMIN D3 [MASS/VOLU ME] IN SERUM OR PLASMA 22.90 ng/mL 30 - 100 09/10 L Specimen Type: SERUM Comment: Deficiency <20, Insufficien cy 20-30, Sufficiency 30-100, Toxicity >100 ng/mL Ordering Provider: LUTHER MELLO Report Released Date/Time: September 09, 2023 02:25 PM Reporting Lab: [facility] [address] [facility] [address] Performing Lab: [facility] [address] [facility] [address] [facility] Vital Signs Combined list of inpatient and outpatient Vital Signs from Department of Defense and Veterans Affairs, ranging from 12 months to all on record, depending upon the facility. Vital Sign Value Date Comments Source SYSTOLIC BLOOD PRESSURE 124 03/09[facility] 83 03/09/2024 [facility] PUL[facility]XIMET[facility] 98 03/09/2024 14:25:00 [facility] WEIGHT 179.2 03/09/2024 14:25:00 [facility] BMI 29 kg/m2 03/09/2024 14:25:00 [facility] HEIGHT 66 03/09/2024 14:25:00 [facility] TEMPERATURE 98.6 03/09/2024 14:25:00 [facility] PULSE 83 03/09/2024 14:25:00 [facility] RESPIRATION 18 03/09/2024 14:25:00 [facility] SYSTOLIC BLOOD PRESSURE 115 12/21/2023 13:05:51 [facility] DIASTOLIC BLOOD PRESSURE 80 12/21/2023 13:05:51 [facility] PULSE OXIMETRY 98 12/21/2023 13:05:51 [facility] WEIGHT 180.4 12/21/2023 13:05:51 [facility]OHANS[facility] BMI 29 kg/m2 12/21/2023 13:05:51 [facility] PAIN 3 12/21/2023 13:05:51 [facility] TEMPERATURE 99.1 12/21/2023 13:05:51 [facility] PULSE 83 12/21/2023 13:05:51 [facility] RESPIRATION 18 12/21/2023 13:05:51 [facility] BERMUDEZ [facility] SYSTOLIC BLOOD PRESSURE 141 09/11/2023 08:22:57 [facility] DIASTOLIC BLOOD PRESSURE 93 09/11/2023 08:22:57 [facility] PULSE OXIMETRY 97 09/11/2023 08:22:57 [facility] WEIGHT 184 09/11/2023 08:22:57 [facility] BMI 30 kg/m2 09/11/2023 08:22:57 [facility] HEIGHT 66 09/11/2023 08:22:57 [facility] TEMPERATURE 98.2 09/11/2023 08:22:57 [facility] PULSE 85 09/11/2023 08:22:57 [facility] RESPIRATION 20 09/11/2023 08:22:57 [facility] Encounters Combined list of: 1) [facility]counters [facility] going backup to the last 18 months, not all [place] inpatient encounters are included; 2) Encounters from the [facility] facilities going backup to 280 months. Location Location Details Encounter Type Encounter Number Reason For Visit Attending Provider ADM Date DC Date Status Disposition Source [place]( [facility] OUTPATIENT [id number] c/o spider bite ERICA JARRETT 07/14 Released w/o Limitations [place] [facility] e [facility]) [place] [facility] OUTPATIENT [id number] insect bites are worse CALVINBRENDA W 07/18 Released w/o Limitations [place] [facility] [place] [facility] [facility] OUTPATIENT [id number] 04/23 Released w/o Limitations [facility] OUTPATIENT [id number] 04/25 Released w/o Limitations Theater Facilit [place] [address](AFN G [facility]) OUTPATIENT [id number] Notes Entered by: OSMAN MENDIOLA 01 Mar 2017 0831 ------- ------- ------- ------- -- OSMAN DUNN 03/01 Released w/o Limitations [facility] [place] [address](A FNG [facility]) Theater Facility OUTPATIENT [id number] Theater Provider 03/21 Released w/o Limitations Theater Facilit y [employer](Non -Active Duty [employer]) OUTPATIENT [id number] migrain DONG Arora 07/21 Released w/o Limitations [employer](N on-Acti ve Duty [employer]) [place] [address](AFN G [facility]) OUTPATIENT [id number] Notes Entered by: Lenora OMER 06 Feb 2018 1046 ------- ------- ------- ------- -- GROVER JEROME 02/06 Released w/o Limitations [facility] [place] [address](A FNG [address] [facility]) [place] [address](AFN G [address] [facility]) OUTPATIENT [id number] Notes Entered by: EUNICE JIMENEZ 29 Jan 2019 0833 ------- ------- ------- ------- -- GROVER Walls 01/29 Released w/o Limitations [facility] [place] [address](A FNG [address] [facility]) [place] [address](AFN G [address] [facility]) OUTPATIENT [id number] GROVER OMER 01/06 Released with Work/Duty Limitations [facility] [place] [address](A FNG [address] [facility]) [facility] Outpatient Encounter [id number] 02/27 [facility] Outpatient Encounter [id number] [id number] 08/07 [facility] HC PRO PHONE CALL 11-20 MIN [id number] [id number] Diagnos is: ICD-10- CM 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 RADHA Saini 08/13 [facility] Outpatient Encounter [id number] [id number] Diagnos is: ICD-10- CM Z77.29 Contact with and exposur e to other hazardo us substan rico SIVAKUMAR MELLO I JOEL 09/10 [facility] Outpatient Encounter [id number] [id number] SIVAKUMAR MELLO I JOEL 09/10 [facility] Outpatient Encounter [id number] [id number] 09/10 [facility] Outpatient Encounter [id number] [id number] 09/14 [facility] OFFICE O/P EST MOD 30 MIN [id number] [id number] Diagnos is: ICD-10- CM E55.9 Vitamin D deficie ncy, unspeci fied SIVAKUMAR MELLO I JOEL 09/16 [facility] Outpatient Encounter [id number] [id number] SIVAKUMAR MELLO I JOEL 09/16 [facility] Outpatient Encounter [id number] [id number] 09/16 [facility] [place] [id number] [id number] Diagnos is: ICD-10- CM E66.3 Overwei SIDNEY Cruz 09/16 [facility] Outpatient Encounter [id number] [id number] 09/16 [facility] Outpatient Encounter [id number] [id number] 09/17 [facility] HC PRO PHONE CALL 5-10 MIN [id number] [id number] Diagnos is: ICD-10- CM Z65.9 Problem related to unspeci fied psychos ocial circums tances DILLOW,CRY STAL D 09/17 [facility] PT EDUCATION NOC INDIVID [id number] [id number] Diagnos is: ICD-10- CM 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 TASHA Biggs 09/22 [facility] HC PRO PHONE CALL 5-10 MIN [id number] [id number] Diagnos is: ICD-10- CM Z65.9 Problem related to unspeci fied psychos ocial circums tances SAWYER ROCA SSIDI 09/23 [facility] PRO PHONE CALL 5-10 MIN [id number] [id number] Diagnos is: ICD-10- CM Z13.9 Encount er for screeni ng, unspeci fied PAOLA SUAREZ IN R 09/23 [facility] Outpatient Encounter [id number] [id number] 09/27 [facility] OFF/OP CNSLTJ NEW/EST LOW 30 [id number] [id number] Diagnos is: ICD-10- CM Z87.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 RISHI LAMA RA R 09/30 [facility] PT EDUCATION NOC INDIVID [id number] [id number] Diagnos is: ICD-10- CM Z87.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 SAWYER ROCA SSIDI 09/30 [facility] Outpatient Encounter [id number] [id number] 09/30 [facility] Outpatient Encounter [id number] [id number] 09/30 [facility] Outpatient Encounter [id number] [id number] 09/30 [facility] Outpatient Encounter [id number] [id number] 10/04 [facility] PSYTX W PT 60 MINUTES 46345-5.55 [id number] Diagnos is: ICD-10- CM F41.9 Anxiety disorde r, unspeci fied DILLOW,CRY STAL D 10/08 [facility] Outpatient Encounter [id number] [id number] Diagnos is: ICD-10- CM Z00.01 Encount er for general adult medical exam w abnorma l finding s CALVIN LYON 10/14 [facility] COGNITIVE TEST BY HC PRO [id number] [id number] Diagnos is: ICD-10- CM R41.840 Attenti on and concent ration deficit PRITESH DEGROOT OR Araceli 10[facility] [id number] [id number] 10/22 [facility] [[email or web address] OFF/OP CNSLTJ NEW/EST MOD 40 72582-8.55 [id number] Diagnos is: ICD-10- CM M79.673 Pain in unspeci fied foot FRANCISCO HANSON J 10/22 [facility] PSYCH DIAGNOSTIC EVALUATION [id number] [id number] Diagnos is: ICD-10- CM F43.12 Post-tr aumatic stress disorde r, chronic PEEK,CHRISTIANO 10/27 [facility] Outpatient Encounter [id number] [id number] 10/27 [facility] PRO PHONE CALL 5-10 MIN [id number] [id number] Diagnos is: ICD-10- CM Z87.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 SAWYER ROCA SSIARNEL 10/27 [facility] Outpatient Encounter [id number] [id number] 10/29 [facility] OPC THER IVNTJ EA ADDL 15 MIN [id number] [id number] Diagnos is: ICD-10- CM R41.840 Attenti on and concent ration deficit MIKAYLA,PRITESH OR D 11/02 [facility] PSYTX W PT 30 MINUTES [id number] [id number] Diagnos is: ICD-10- CM F43.12 Post-tr aumatic stress disorde r, CHRISTIANO Garrett 11/03 [facility] Outpatient Encounter [id number] [id number] 11/08 [facility] Outpatient Encounter [id number] [id number] 11/09 [facility] THER IVNTJ EA ADDL 15 MIN [id number] [id number] Diagnos is: ICD-10- CM R41.840 Attenti on and concent ration deficit PRITESH DEGROOT OR D 11/16 [facility] QNHP OL DIG ASSMT&MGMT 21+ [id number] [id number] Diagnos is: ICD-10- CM G43.909 Migrain e, unsp, not intract able, without status migrain osus JACK JUAREZ 11/22 [facility] Outpatient Encounter [id number] [id number] 11/25 [facility] THER IVNTJ EA ADDL 15 MIN [id number] [id number] Diagnos is: ICD-10- CM R41.840 Attenti on and concent ration deficit MIKAYLA,PRITESH OR D 11/30 [facility] PRO PHONE CALL 11-20 MIN [id number] [id number] Diagnos is: ICD-10- CM Z87.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 SAWYER ROCA SSIARNEL 12/06 [facility] Outpatient Encounter [id number] [id number] 12/09 [facility] Outpatient Encounter [id number] [id number] 12/09 [facility] SELF-MGMT EDUC & TRAIN 1 [place] [id number] [id number] Diagnos is: ICD-10- CM R41.840 Attenti on and concent ration deficit DEGROOT,SKYEL OR D 12/14 [facility] Outpatient Encounter [id number] [id number] 12/20 [facility] NRV CNDJ TST 5-6 STUDIES [id number] [id number] Diagnos is: ICD-10- CM 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 AVIS HERNANDEZ 12/20 [facility] PSYTX W PT 45 MINUTES [id number] [id number] Diagnos is: ICD-10- CM F43.12 Post-tr aumatic stress disorde r, chronic PEEK,CHRISTIANO 12/21 [facility] Outpatient Encounter [id number] [id number] Diagnos is: ICD-10- CM M79.673 Pain in unspeci fied foot FRANCISCO HANSON J 12/28 [facility] PSYTX W PT 45 MINUTES 50336-2.55 [id number] 50 Diagnos is: ICD-10- CM F43.12 Post-tr aumatic stress disorde r, chronic PEEK,CHRISTIANO 01/04 [facility] THER IVNTJ EA ADDL 15 MIN [id number] [id number] Diagnos is: ICD-10- CM R41.840 Attenti on and concent ration deficit DEGROOT,TAYL OR D 01/11 [facility] PSYTX W PT 60 MINUTES 12193-0.55 [id number] Diagnos is: ICD-10- CM F43.12 Post-tr aumatic stress disorde r, chronic PEEK,CHRISTIANO 01/18 [facility] PSYTX W PT 60 MINUTES [id number] [id number] Diagnos is: ICD-10- CM F43.12 Post-tr aumatic stress disorde r, chronic PEEK,CHRISTIANO 02/01 [facility] PSYTX W PT 60 MINUTES 50100-3.55 [id number] Diagnos is: ICD-10- CM F43.12 Post-tr aumatic stress disorde r, chronic PEEK,CHRISTIANO 02/15 [facility] Outpatient Encounter [id number] [id number] 02/17 [facility] PSYTX W PT 60 MINUTES [id number] [id number] Diagnos is: ICD-10- CM F43.12 Post-tr aumatic stress disorde r, chronic PEEK,CHRISTIANO 03/01 [facility] Outpatient Encounter [id number] [id number] Diagnos is: ICD-10- CM Z00.01 Encount er for general adult medical exam w shailesha CALVIN Villalobos 03/09 [facility] Outpatient Encounter [id number] [id number] Diagnos is: ICD-10- CM Z77.012 Contact with and (suspec lucio) exposur e to uranium DESEAN, GEOVANNI A 03/22 [facility] S[facility] PSYTX W PT 45 MINUTES [id number] [id number] Diagnos is: ICD-10- CM F43.12 Post-tr aumatic stress disorde r, chronic PEEK,CHRISTIANO 03/25 [facility] PSYTX W PT 45 MINUTES [id number] [id number] Diagnos is: ICD-10- CM F43.12 Post-tr aumatic stress disorde r, chronic PEEK,CHRISTIANO 04/22 [facility] PSYTX W PT 60 MINUTES [id number] [id number] Diagnos is: ICD-10- CM F43.12 Post-tr aumatic stress disorde r, chronic CHRISTIANO JULIO 05/06 [facility] Outpatient Encounter [id number] [id number] 05/06 [facility] Outpatient Encounter [id number] [id number] 05/25 [facility] PSYTX W PT 60 MINUTES 21422-7.55 [id number] Diagnos is: ICD-10- CM F43.10 Post-tr aumatic stress disorde r, unspeci fied CHRISTIANO JULIO 06/03 [facility] Outpatient Encounter [id number] [id number] 06/21 [facility] Outpatient Encounter [id number] [id number] 06/24 [facility] Social History Combined list of available smoking, tobacco, and other social history from Department of Defense and Veterans Affairs facilities. Social History Type Response Date Comment Sour e Tobacco smoking status FORMERLY NAMED [facility]-TOBACCO NEVER USED 09/11/2023 [facility] This section is an empty social history section. DoD Plan of Care List of future care activities from Department of Veterans Affairs facilities. Additional future care activities may be listed in the Assessment and Plan section. Date/Time Care Activity Care Activity Detail Facili ty 07/05/2024 AMBULATORY - PSYCHIATRY AMBULATORY - PSYC HIATRYinka [facility] 09/02/2024 AMBULATORY - NONE AMBULATORY - NONE [facility] 09/09/2024 AMBULATORY - MEDICINE AMBULATORY - MEDICI NE [facility]
--- OUTSIDE RECORDS SUMMARY | 2024-07-02 06:42 | XMS_ITS | Encounter Summary ---
Author Organization [facility] Address [address] [place] [address] Care Team Providers Care Publicity Person Name Role Phone Jaime Moran MD Primary Care Provider [phone] Hansel Rosas MD Unavailable [phone] Encounter Details Date Type Department Care Team (Late Contact Info) Description 12/22/2019 [facility] [address] [place] [address] Abstract, Doc [facility] Social History Tobacco Use Types Packs/Day Years Used Date Smoking Tobacco: Never Smokeless Tobacco: Never Alcohol Use Standard Drinks/Week Comments Yes 0 (1 standard drink = 0.6 oz pur e alcohol) AUDIT-C Answer Date Recorded Q1: How often [...] AM CDT Sexual Orientation Not on file COVID-19 Exposure Response Date Recorded In the last month, have you been in contact with someone who was confirmed or suspected to have Coronavirus / COVID-19? No / Unsure 12/13/2019 10:29 AM CDT documented as of this encounter Plan of Treatment Upcoming Encounters Date Type Department Care Team (Late Contact Info) Description 07/19/2024 11:00 AM CDT Appointment [facility] [address] [place] [address] Maricruz Torres MD [address] [place] [address] documented as of this encounter Procedures Procedure Name Priority Date/Time Associated Diagnosis Comments GLUCOSE Routine 11/22/2019 LIPID PANEL Routine 11/22/2019 documented in this encounter Results * Glucose (11/22/2019) GLUCOSE 83 mg/dL 11/22/2019 us Doc [facility] Abstract GENERAL SUPPLY & EQUIPMENT O RDERABLES Final Result * LIPID PANEL (11/22/2019) CHOLESTEROL 171 HDL 52 TRIGLYCERIDES 67 NON HDL CHOLESTEROL 119 CHOL/HDL RATIO 3.3 LDL (CALCULATED) 104 >=100 11/22/2019 us Doc [facility] Abstract LABORATORY Final Result documented in this encounter Visit Diagnoses Not on filedocumented in this encounter Additional Health Concerns Infection Onset Date Last Indicated Resolved Time COVID-19 Rule Out 01/21/2020 01/21/2020 01/22/2020 2:40 PM CDT documented as of this encounter Care Teams Publicity Person Relationship Specialty Start Date End Date Jaime Moran MD [address] [place] [address] PCP - General INTERNAL MEDICINE 12/12/19 Hansel Rosas MD [address] [place] [address] [facility] Data [facility]st CARDIOVASCULAR DISEASE 12/12/19 documented as of this encounter
--- OUTSIDE RECORDS SUMMARY | 2024-07-02 06:42 | XMS_ITS | Encounter Summary ---
Author Name [facility] [place] [facility] [place] [facility] [place] Address [address] [place] [address] Care Team Providers Care Escalator Service Mechanic Name Role Phone LUTHER MELLO Primary Care [...] section includes the information on record at [place] for the Encounter. Date/Time Encounter Type Encounter Description Reason Provider Source May 06, 2024 09:00 AM PSYTX W PT 60 MINUTES [facility] - IND ICD-10-CM F43.12 Post-traumatic stress disorder, chronic PEEK,CHRISTIANO Arabella Encounter Template Text not used by [place] Assessments - Encounter Diagnoses This section includes the primary and secondary diagnoses documented for the Encounter. Date/Time Primary/Secondary Diagnosis Diagnosis Name Provider Source May 09, 2024 03:57 AM PRIMARY Post-traumatic stress disorder, chronic PECHRISTIANO NI [facility] Plan of Treatment: Future Appointments (+ [...] 20 appointments. The data comes from all [place] treatment facilities. Appointment Date/Time Appointment Type Appointme nt Facility Name Jun 03, 2024 08:00 AM AMBULATORY - PSYCHIATRY [facility] Jul 05, 2024 09:00 AM AMBULATORY - PSYCHIATRY [facility] September 02, 2024 08:30 AM AMBULATORY - NONE [facility] September 09, 2024 08:30 AM AMBULATORY - MEDICINE [facility] Social History: Smoking Status (Most current) and Tobacco Use (All prior to encounter date) This section includes the most current, and the historical, smoking and tobacco- related health factors from the [place] facility where the Encounter took place. Current Smoking Status This section includes the most current smoking, or tobacco-related health factor, from the [place] facility where the Encounter took place. Date/Time Current Smoking Status Comment Facil elenay September 11, 2023 08:30 AM VA-TOBACCO NEVER USED [facility] Encounter Notes: All associated encounter notes This section contains the clinical notes associated to the Encounter. Date/Time Encounter Note(s) Provider Source May 06, 2024 09:03 AM MENTAL HEALTH NOTE : LOCAL TITLE: MENTAL HEALTH/TREATMENT NOTE STANDARD TITLE: MENTAL HEALTH NOTE DATE OF NOTE: MAY 06, 2024@09:03 ENTRY DATE: MAY 06, 2024@09:03:14 AUTHOR: CHRISTIANO JULIO COSIGNER: URGENCY: STATUS: COMPLETED Telehealth Disclosure: Visit conducted by synchronous telehealth. [place] verbal consent obtained. Location/emergency number confirmed. Environment surveyed and all participants identified. Virtual conference room locked. Reason For Visit: CPT Session 7 Patient address during visit: Home: [id number] [place] [phone] Emergency number confirmed: ----- Cognitive Processing Therapy: Problematic Thinking Session Time in session (in minutes): SESSION NUMBER: 7 SESSION FORMAT Video Telehealth Session SESSION LOCATION Other location Specify: The provider is located in [facility] DIAGNOSIS: Primary (focus of treatment): Post Traumatic Stress Disorder ASSESSMENT: Date Instrument Raw Trans Scale 03/25/2024 14:00 PCL-5 WEEKLY 31 PCL-5 03/01/2024 08:00 PCL-5 WEEKLY 24 PCL-5 No data available PCL-5 Weekly The score was 26. CHANGE IN SCORE (PCL or PHQ9) CHANGES IN ASSESSMENT SCORES FROM EARLIER ADMINISTRATIONS: There was a 5 point reduction since the last administration of the PCL. RISK INFORMATION The was not a risk to herself or others MENTAL STATUS/BEHAVIORAL OBSERVATIONS The was on time for the scheduled [facility] appointment. She was appropriately dressed and [...] time of the session. SESSION CONTENT: The [place] completed the Problematic Thinking Patterns Session of Cognitive Processing Therapy (CPT). The following therapy components were addressed: -Therapist and reviewed 's completed Problematic Thinking Patterns Worksheets. -Therapist introduced the Challenging Beliefs Worksheet (CBW) as a method of self-guided cognitive restructuring. -Therapist introduced the Safety Module. PRACTICE ASSIGNMENT -The was asked to review the Safety Module handout before the next session. - was asked to complete one Challenging Beliefs Worksheet each day, with at least one of these daily worksheets addressing Safety. PLAN Next session planned for agreed upon date/time of: 05/19/2024 at 8a /eric/ CHRISTIANO JULIO PSYD LICENSED CLINICAL PSYCHOLOGIST Signed: 05/09/2024 04:04 CHRISTIANO JULIO [facility]
--- OUTSIDE RECORDS SUMMARY | 2024-07-02 06:42 | XMS_ITS | Encounter Summary ---
Author Name [facility] [place] Organization [facility] [place] Address [address] [place] [address] Care Team Providers Care Senior Front End Web Developer Name Role Phone LUTHER MELLO Primary [...] section includes the information on record at [place] for the Encounter. Date/Time Encounter Type Encounter Description Reason Provider Source Dec 21, 2023 01:00 PM NRV CNDJ TST 5-6 STUDIES EMG - ELECTROMYOGRAM ICD-10-CM G60.3 Idiopathic progressive neuropathy AVIS BLACK Arabella Encounter Template Text not used by [place] Assessments - Encounter Diagnoses This section includes the primary and secondary diagnoses documented for the Encounter. Date/Time Primary/Secondary Diagnosis Diagnosis Name Provider Source Dec 25, 2023 11:40 AM PRIMARY Idiopathic progressive neuropathy AVIS BLACK [facility] Dec 25, 2023 11:40 AM SECONDARY Pain in unspecified foot AVIS BLACK [facility] Plan of Treatment: Future Appointments (+ [...] 20 appointments. The data comes from all [place] treatment facilities. Appointment Date/Time Appointment Type Appointme nt Facility Name Dec 22, 2023 08:00 AM AMBULATORY - PSYCHIATRY [facility] Jan 05, 2024 08:00 AM AMBULATORY - PSYCHIATRY [facility] Jan 12, 2024 09:00 AM AMBULATORY - NONE [facility] Jan 19, 2024 08:00 AM AMBULATORY - PSYCHIATRY [facility] Feb 02, 2024 02:00 PM AMBULATORY - PSYCHIATRY [facility] Feb 16, 2024 08:00 AM AMBULATORY - PSYCHIATRY [facility] Mar 01, 2024 08:00 AM AMBULATORY - PSYCHIATRY [facility] Mar 09, 2024 02:00 PM [facility] Mar 25, 2024 02:00 PM AMBULATORY - PSYCHIATRY [facility] Apr 22, 2024 09:00 AM AMBULATORY - PSYCHIATRY [facility] May 06, 2024 09:00 AM AMBULATORY - PSYCHIATRY [facility] Jun 03, 2024 08:00 AM AMBULATORY - PSYCHIATRY [facility] Vital Signs: All taken on the encounter date This section contains inpatient and outpatient Vital Signs collected on the date of the Encounter. Date/Time Temperature Pulse Blood Pressure Respiratory Rate SP02 Pain Height Weight Body Mass Index Source Dec 21, 2023 01:05 PM 99.1 83 115/80 18 98 3 180.4 29 ARIELLA BERMUDEZ [facility] Encounter Notes: All associated encounter notes This section contains the clinical notes associated to the Encounter. Date/Time Encounter Note(s) Provider Source Dec 25, 2023 11:37 AM PHYSICAL MEDICINE REHAB CONSULT: LOCAL TITLE: CONSULT/EMG STANDARD TITLE: PHYSICAL MEDICINE REHAB CONSULT DATE OF NOTE: DEC 25, 2023@11:37 ENTRY DATE: DEC 25, 2023@11:37:26 AUTHOR: AVIS BLACK EXP COSIGNER: URGENCY: STATUS: COMPLETED Rehabilitation Medicine Service (117) Electromyogram/Nerve Conduction Studies Date: 12/21/23 Referring Physician:Dr. Freddy Johnson Reason for Study/Diagnosis:bilateral foot pain, left foot numbness The NCV test was performed on the patients /BLE as indicated by referring providers request. All clinicals information, including but not limited to the reason for referral, current medical history, PMH, medications were reviewed with the patient prior to the test. The risks, benefits and alternative of this test were explained to the patient and got the verbal approval. Certain blood thinner (coumadin, Plavix, Eliquis, Xarelto) if any, was hold per prescriber approval before the EMG test and the patient was informed to resume it right after the EMG test. The detailed results will be imported or scanned to the [place] EMR system. The abnormal findings may suggest electrodiagnostic evidence of: Left sural sensory neuropathy. NO right sided neuropathy. Thank you very much for the kind referral. The clinical correlation is suggested and I would recommend: Neuropathic pain medications such as pregabalin, Ultram, Cymbalta, NSAIDS, etc. /eric/ AVIS BLACK MD Signed: 12/25/2023 11:40 Receipt Acknowledged By: 12/29/2023 12:43 /es/ Cata JenkinsPJatin Sales Consultant Insurance AVIS BLACK [facility] Dec 21, 2023 01:06 PM NURSING NOTE: LOCAL TITLE: INDRA/PREVMED STANDARD TITLE: NURSING NOTE DATE OF NOTE: DEC 21, 2023@13:06 ENTRY DATE: DEC 21, 2023@13:07:03 AUTHOR: SHAYAN NIX EXP COSIGNER: URGENCY: STATUS: COMPLETED PATIENT IDENTIFIERS: GURJIT CUELLAR August Subjective: 43 year old FEMALE [place] here for an EMG due to BLE numbness, tingling and pain. She is using diclofenac gel prn to help with the pain. Last imaging: bilateral feet 10/01/2023 Objective: WEIGHT: 180.4 lb [81.83 kg] (12/21/2023 13:05) HEIGHT:66 in [167.6 cm] (09/11/2023 08:22) TEMP:99.1 F [37.3 C] (12/21/2023 13:05) PULSE:83 (12/21/2023 13:05) RESP:18 (12/21/2023 13:05) BP:115/80 (12/21/2023 13:05) PAIN:3 (12/21/2023 13:05) POX:98% (12/21/2023 13:05) Adverse Reactions/Allergies: SULFA DRUGS, PENICILLIN, VICODIN Plan: Refer to Dr. Black. /eric/ SHAYAN NIX LPN Signed: 12/21/2023 13:10 SHAYAN NIX [facility]
--- OUTSIDE RECORDS SUMMARY | 2024-07-02 06:42 | XMS_ITS | Encounter Summary ---
Author Name [facility] [place] Organization [facility] [facility] [place] Address [address] [place] [address] Care Team Providers Care Maintenance Truck Driver Name Role Phone RIAZ LUTHER Primary Care [...] Type Encounter Description Reason Pro vider Source IHE Encounter Template Text not used by [place]
--- OUTSIDE RECORDS SUMMARY | 2024-07-02 06:42 | XMS_ITS | Encounter Summary ---
Author Name [facility] [place] Address [address] [place] [address] Care Team Providers Care Medical Records Specialist Name Role Phone MELLOLUTHER Ruano Primary Care [...] section includes the information on record at [place] for the Encounter. Date/Time Encounter Type Encounter Description Reason Pro vider Source September 17, 2023 08:42 AM Outpatient Encounter ADMIN PAT ACTIVTIES (MASNONCT) E Encounter Template Text not used by [place] Plan of Treatment: Future Appointments (+ 6 months) and Future Tests (+/- 45 days) The Plan of Treatment section includes future care activities for the patient from all [place] treatmentfacilities. This section includes future appointments and future orders which are active, pending or scheduled. Future Appointments This section includes appointments that were scheduled to occur 6 months from the date of the Encounter, up to a maximum of 20 appointments. The data comes from all [place] treatment facilities. Appointment Date/Time Appointment Type Appointme nt Facility Name Oct 01, 2023 08:30 AM AMBULATORY - PSYCHIATRY [facility] Oct 01, 2023 12:00 PM AMBULATORY - MEDICINE [place] [facility] Oct 09, 2023 09:00 AM AMBULATORY - PSYCHIATRY [facility] Oct 15, 2023 08:00 AM AMBULATORY - NONE [place] [facility] Oct 20, 2023 08:30 AM AMBULATORY - NONE [facility] OLMEDO [facility] Oct 23, 2023 09:00 AM AMBULATORY - SURGERY [facility] Oct 28, 2023 01:00 PM AMBULATORY - PSYCHIATRY [facility] Nov 03, 2023 01:00 PM AMBULATORY - NONE [facility]LL[facility] OLMED[facility] Nov 04, 2023 01:00 PM AMBULATORY - PSYCHIATRY [facility] Nov 09, 2023 02:15 PM AMBULATORY - NONE [place] [facility] Nov 17, 2023 09:00 AM AMBULATORY - NONE [facility]LL[facility] OLMEDO [facility] Dec 01, 2023 09:00 AM AMBULATORY - NONE [facility] OLMED[facility] Dec 15, 2023 09:00 AM AMBULATORY - NONE [facility] OL[facility] Dec 21, 2023 01:00 PM AMBULATORY - REHAB MEDICIN E [facility]LLA BERMUDEZ [facility] Dec 22, 2023 08:00 AM AMBULATORY - PSYCHIATRY [facility] Jan 05, 2024 08:00 AM AMBULATORY - PSYCHIATRY [facility] Jan 12, 2024 09:00 AM AMBULATORY - NONE [facility]LL[facility] OLMEDO [facility] Jan 19, 2024 08:00 AM AMBULATORY - PSYCHIATRY [facility] Feb 02, 2024 02:00 PM AMBULATORY - PSYCHIATRY [facility] Feb 16, 2024 08:00 AM AMBULATORY - PSYCHIATRY [facility] Lab Results: +/- 30 days of the encounter This section includes the Chemistry and Hematology Lab Results on record with [place] for the patient. Radiology Reports and Pathology Reports are provided separately, in subsequent sections. Lab Results This section contains the Chemistry/Hematology Results that were resulted 30 days before or 30 daysafter the date of the Encounter. Date/Time Source Result Type Result - Unit Interpretation Reference Range Comment September 11, 2023 10:07 AM [facility] CBC W/DIFF Specimen Type: BLOOD No comment entered. Ordering Provider: LUTHER MELLO Report Released Date/Time: September 09, 2023 02:25 PM Reporting Lab: [facility] [address] [address] Performing Lab: [facility] [address] [address] WBC 9.4 10*3/uL 4.0-11.0 RBC 4.56 10*6/uL [...] 10*3/uL 0-0.012 September 11, 2023 10:07 AM [facility] A1C % Specimen Type: BLOOD Comment: [...] September 09, 2023 02:25 PM Reporting Lab: [address] [address] Performing Lab: [address] [address] A1C % 5.0 0.0-5.6 September 11, 2023 10:07 AM [facility] COMPREHENSIVE PNL Specimen Type: PLASMA Comment: [...] September 09, 2023 02:25 PM Reporting Lab: [address] [address] Performing Lab: [address] [address] ANION GAP 5 mmol/L 5-15 EGFR 113 [...] mg/dL 0.51-0.95 September 11, 2023 10:07 AM [facility] LIPID PNL Specimen Type: PLASMA Comment: [...] September 09, 2023 02:25 PM Reporting Lab: [address] [address] Performing Lab: [address] [address] DIR. HDL 49.8 mg/dL L >=60 TRIGLYCERIDES 85 mg/dL See Comment DIR LDL canc CHOL 163 mg/dL See Comment LDL (CALCULATED) 96.2 mg/dL See Comment September 11, 2023 10:07 AM [facility] THYROID CASCADE PANEL Specimen Type: SERUM Comment: Deficiency <20, Insufficiency 20-30, Sufficiency 30-100, Toxicity >100 ng/mL Ordering Provider: LUTHER MELLO Report Released Date/Time: September 09, 2023 02:25 PM Reporting Lab: [address] [address] Performing Lab: [address] [address] TSH3 ULTRA EIA 1.490 u[IU]/mL 0.550-4.78 0 September 11, 2023 10:07 AM [facility] URINE ALBUMIN/CREAT (RAND URINE) Specimen Type: URINE Comment: MALB/CREAT ratio cannot be calculated-sobia lyte outside linearity. Ordering Provider: LUTHER MELLO Report Released Date/Time: September 09, 2023 02:25 PM Reporting Lab: [address] [address] Performing Lab: [address] [address] URINE ALBUMIN(RAND URINE) <0.3 mg/dL <2.0 CREAT(RNDM URINE) 30.50 mg/dL 29-226 CREAT RATIO (RNDM URINE) comment mg/g <30 September 11, 2023 10:07 AM [facility] VITAMIN D 25-HYDROXY Specimen Type: SERUM Comment: Deficiency <20, Insufficiency 20-30, Sufficiency 30-100, Toxicity >100 ng/mL Ordering Provider: LUTHER MELLO Report Released Date/Time: September 09, 2023 02:25 PM Reporting Lab: [address] [address] Performing Lab: [facility] [address] [address] VITAMIN D 25-HYDROXY 22.90 ng/mL L 30-100 [...] the Encounter. The data comes from all [place] treatment facilities. Date/Time Radiology Report Provider Source Oct 01, 2023 12:30 PM OUTSIDE STUDY [facility] RAD: GURJIT ZENG [id number] -[id number] F Exm Date: OCT 01, 2023@12:30 Req Phys: LUTHER MELLO Pat Loc: [facility] [employer] DIRECTOR (Req'g Loc) Img Loc: OUTSIDE RADIOLOGY IMPORT EXAM Service: Unknown Screen: Patient is unable to answer or is unsure Screen Comment: OUTSIDE STUDY (Case [id number] COMPLETE) OUTSIDE STUDY GENERAL RAD (RAD Detailed) CPT:81438 Reason for Study: See clinical history below: Clinical History: Right foot pain Report Status: Electronically Filed Date Reported: OCT 01, 2023 Report: This procedure was performed [facility] of the [facility]. If the images and associated report were provided, they can be viewed in [employer] and/or [employer] PACS System. Impression: This procedure was performed outside of the [facility]. If the images and associated report were provided, they can be viewed in [employer] and/or [employer] PACS System. VERIFIED BY: / [facility] Oct 01, 2023 12:00 PM OUTSIDE STUDY [facility]ENE [facility] RAD: GURJIT ZENG [id number] -[id number] F Exm Date: OCT 01, 2023@12:00 Req Phys: LUTHER MELLO Pat Loc: [facility] [employer] DIRECTOR (Req'g Loc) Img Loc: OUTSIDE RADIOLOGY IMPORT EXAM Service: Unknown Screen: Patient is unable to answer or is unsure Screen Comment: OUTSIDE STUDY (Case [id number] COMPLETE) OUTSIDE STUDY GENERAL RAD (RAD Detailed) CPT:06371 Reason for Study: See clinical history below: Clinical History: left foot pain Report Status: Electronically Filed Date Reported: OCT 01, 2023 Report: This procedure was performed [facility] of the [facility]. If the images and associated report were provided, they can be viewed in [employer] and/or [employer] PACS System. Impression: This procedure was performed outside of the [facility]. If the images and associated report were provided, they can be viewed in [employer] and/or [employer] PACS System. VERIFIED BY: / [facility] Encounter Notes: All associated encounter notes This section contains the clinical notes associated to the Encounter. Date/Time Encounter Note(s) Provider Source September 17, 2023 08:42 AM PHYSICIAN NOTE: LOCAL TITLE: PROVIDER/MEDICATION RECONCILIATION STANDARD TITLE: PHYSICIAN NOTE DATE OF NOTE: SEPTEMBER 17, 2023@08:42:09 ENTRY DATE: SEPTEMBER 17, 2023@08:42:09 AUTHOR: LUTHER MELLO COSIGNER: URGENCY: STATUS: COMPLETED DEPARTMENT OF [facility] [address], [place] [address] GURJIT ZENG SEPTEMBER 17, 2023 [address] [place], [place] [address] Patient: GURJIT ZENG A list of reconciled medications was provided to the /caregiver. The following medication list was reviewed with the patient/caregiver: The /caregiver was counseled on new medications and/or medication changes. Potential risks, benefits, and alternative to medications prescribed were discussed with Murray/caregiver who was given an opportunity to ask questions, which were answered to the best of my ability and seemingly to their satisfaction. Murray/caregiver was/were instructed to contact provider (means provided) with any concerns or questions. INCLUDED IN THIS LIST: Alphabetical list of active outpatient prescriptions dispensed from this [place] (local) and dispensed from another [facility] or [...] the patient into personal health records (i.e. Eyewitness Surveillance) are not included in this list. Non-VA medications documented outside this [place], remote inpatient orders (regardless of status) and remote clinic medications are NOT included in this list. The patient and provider must always discuss medications the patient is taking, regardless of where the medication was dispensed or obtained. Patient safety alert: Medications and allergies from [facility] facilities may be incomplete. Reference [facility] for full list. Allergies/ADRs Facility Allergen (Reaction) -------- [facility] PENICILLIN (NAUSEA AND VOMITING) [facility] PENICILLIN (RASH) [facility] SULFA DRUGS (RASH) [facility] VICODIN (URTICARIA) [facility] Facilities No Allergy/ADR Data available MEDICATION RECONCILIATION ------- Post Appointment Active (Local and Remote [place]) Medications: ------- ALBUTEROL METERED DOSE INHL,ORAL (NON-VA Status: ACTIVE) 2 puffs mouth every 4 hours as needed Usually Taken for: Breathing CHOLECALCIF 25MCG (D3-1,000UNIT) TAB (OUTPT Status: PENDING) Take one tablet by mouth daily\indication: for vitamin d supplement Usually Taken for: Supplement DILTIAZEM (EQV-TIAZAC) 24HR CAP,SA (NON-VA Status: ACTIVE) 360mg mouth every day Usually Taken for: Blood pressure/Heart MAGNESIUM OXIDE TAB (NON-VA Status: ACTIVE) 400mg mouth twice a day Usually Taken for: Supplement MELOXICAM TAB (NON-VA Status: ACTIVE) 15mg mouth every day Usually Taken for: Pain NITROGLYCERIN TAB,SUBLINGUAL (NON-VA Status: ACTIVE) 0.4mg under the tongue every 5 minutes as needed Usually Taken for: Heart RANOLAZINE TAB,SA (NON-VA Status: ACTIVE) 500mg mouth daily Usually Taken for: Heart RIZATRIPTAN TAB (NON-VA Status: ACTIVE) 10mg mouth every day as needed Usually Taken for: Headaches /es/ [facility] LIFE SCIENCES DIRECTOR Date printed: SEPTEMBER 17, 2023 08:45 [facility] LUTHER MELLO [facility]
--- OUTSIDE RECORDS SUMMARY | 2024-07-02 06:42 | XMS_ITS | Data Portability ---
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 She has already tried numerous oral preventive medications including a beta janet, Topamax, Depakote, and amitriptyline. Currently, she is on diltiazem. Those have not been helpful. Since her headaches are quite frequent, I recommend another preventive medication. We will try Aimovig. I demonstrated the Aimovig injector. She can continue Maxalt as needed. She will follow up in 3 months, but she will call if she has any problems in the meantime. lag [email or web address] Not available 11/09/2023 20:10:38 11/30/2023 11/30/2023 For comfort, we are going to switch from auto to a fixed pressure of 9 cm of water. I have requested a remote download in a couple of weeks to correlate with the above changes. Do not drive if sleepy. She was encouraged to do her best to adhere to CPAP. She will see me in several months for another download. clb [email or web address] Not available 11/30/2023 12:00:50 02/02/2024 02/02/2024 Demar is here today for follow-up for migraines and headaches. These are both currently well-controlled. 1. Continue Aimovig 70 mg/ML monthly injections. 2. Use rizatriptan as needed. 3. All patient's question concerns were addressed. She agrees with the plan. 4. Follow-up in 6 months. [email or web address] Not available 02/02/2024 11:49:28 04/06/2024 04/06/2024 1. The patient comes to the clinic today for her annual exam. I reviewed the [facility] [employer] form with her. She voiced understanding of the recommendations for her age and agrees to comply. 2. The patient is very happy with her Mirena. She is not having any menses on it. It was placed on May 25, 2018, so it will come out on May 25, 2026. This was written on a card for her. 3. I encouraged flu and COVID vaccination. 4. She will return to the clinic yearly and p.r.n. She voiced understanding and agreed with the plan. [email or web address] Not available 04/09/2024 01:00:01 Plan of Treatment Reminders Order Date Submit Date Provider Last Modified By Organization Details Last Modified Time Details Appointments Patrick fuentes Patient 15.EST 2024 09:30A M Dr. Joaquina Ryder Not available Not available Not available Austynkieran gina Patient 15.EST 2024 10:15A M Dana Almonte Not available Not available Not available Patrick gina Patient 15.EST 2024 08:30A M Dr. Joaquina Ryder Not available Not available Not available Patrick fuentes Patient 15.EST 2024 11:15A M Dr. Damian Hay Not available Not available Not available Annual Well Woman Visit 15.EST 2024 08:30A M Dr. Maricruz Torres Not available Not available Not available Lab None recorde d. Referral None recorde d. Procedures None recorde d. Surgeries None recorde d. Imaging MAMMO, screeni machelle pantoja , benjie alexander 2023 025 [email or web address] [facility] (Radiology), [address] [facility] , [place], [address], 05/24/2024 12:11:29 Medication Orders rizatri ptan 10 mg tablet 2023 [facility], [address] [place] [address], [address], 02/02/2024 11:37:51 Aimovig Autoinj leilani 70 mg/mL subcuta neous auto-in jector 2023 [facility], [address] [place] [address], [id number], 02/02/2024 11:46:16 Aimovig Autoinj leilani 70 mg/mL subcuta neous auto-in ctor 2023 [facility], [address] [place] [address], [id number], 11/09/2023 20:26:17 Patient TargetsNo targets recorded. Patient Instructions Encounter Date Encounter Id Patient Instructions Last Modified By Organization Details Last Modified Time 11/09/2023 [id number] Migraine and headache handout was given and discussed. I recommend abstaining from caffeine and obtaining a migraine tracking noa. I recommend keeping a regular daily schedule, including getting up at the same time every morning and going to bed at the same time every night etc. We discussed ilfl-rkk-cmurfbo preventive supplements including magnesium, riboflavin, and coenzyme Q10. [email or web address] Not available 11/09/2023 15:56:42 We discussed . If she knows ahead of time that she wants to become , we will stop the medication ahead of time. If she becomes unexpectedly, we will stop the medication as soon as possible. [email or web address] Not available 11/09/2023 15:57:00 11/30/2023 [id number] patient follow u p phone call* [email or web address] Not available 01/25/2024 12:37:16 I spent time going over the results of the download. The last 3 months CPAP was only used more than 4 hours on 50% of nights. As indicated in the History of Present Illness, the patient has frequent sinus infections limiting her ability to use CPAP. I talked about pursuing an alternative therapy such as an oral appliance or the Inspire device. She does not want to do that at this time. AHI is 3.5. [email or web address] Not available 11/30/2023 12:00:40 Reason for Referral None Reported. Results Created Date Observation Date Name Description Value Unit Range Abnormal Flag Note LastModifiedBy Organization Detail LastModifiedTime 01/22/20 24 01/22/2024 pregn susan test, urine urine NEGATI VE negati ve (SENS ITIVI TY >99%) (SPEC IFICI TY >99%) Not Available [facility] [address], [address], 01/22/2024 12:13:44 04/01/20 24 04/01/2024 pregn susan test, urine urine NEGATI VE negati ve (SENS ITIVI TY >99%) (SPEC IFICI TY >99%) Not Available [facility] [address], [address], 04/01/2024 11:58:54 04/06/20 24 04/06/2024 GYNEC OLOGI C CYTOL 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 Perfo rmed at: [facility] Order ing Provi gustavo: Latisha Torres en Patimulu nt Name: TREASURE VALLECILLOI A R Acces cammie #: [id number] /A ge/Ge nder: 1980 (Age: 43) / F Proce dure Date: 04/06 SP ECIME N RECEI POLINA * SureP ath HPV DNA with Pap, Cervi rock/E ndoce rvica l Speci men Adequ acy Satis facto ry for evalu ation Endoc ervic al cell/ trans forma tion zone compo nent prese nt Cytol ogic Diagn osis Negat kareem for intra epith elial lesio n or felicia moon [facility] EL ECTRO NICAL LY VERIF IED BY TENNILLE RILEY N, CT( CP) * 04/15 10:30 HPV Testi ng Date Order ed: 04/12 Date Repor lucio: 04/14 16:47 Inter preta tion NEGAT KAREEM for high risk types of HPV Test Infor matio n Human Papil lomav irus (HPV) testi ng perfo rmed using the [facility] batool 4800 HPV Test ([facility], [place] , [place] ). The batool HPV Test is a polym erase chain react ion (PCR) -base d DNA ampli ficat ion test that simul taneo usly ident ifies a morris d resul t for 12 HR HPV types (HPV- 31, 33, 35, 39, 45, 51, 52, 56, 58, 59, 66 and 68) and indiv idual resul ts for HPV-1 6 and HPV-1 8. High Risk HPV types are assoc iated with cervi rock carci noma and its predi sposi ng lesio ns: cervi rock atypi a and high grade squam ous intra epith elial lesio n (mode rate and sever e dyspl peng, carci noma in situ/ TAVO 2 and TAVO 3). The U.S. Food and Drug Admin istra tion (FDA) has appro polina this test for use with SureP ath speci mens. The perfo rmanc e alton cteri stics of this test were verif ied by the [facility] ([facility] [place], [place]). [facility] is autho rized under Clini rock Labor atory Impro vemen t Amend ments (CLIA ) to perfo rm high- compl exity testi ng. Recom menda tion The Ameri can Cance r Socie ty (ACS) , Ameri can Socie ty for Colpo scopy and Cervi rock Patho logy (ASCC P), and Ameri can Socie ty for Clini rock Patho logy (ASCP ) recom mends that women who recei ve negat kareem resul ts on both tests shoul d be rescr eened no more frequ ently than every five years . HPV DNA posit kareem, cytol ogy negat kareem women shoul d be follo wed conse rvati vely repea ting BOTH tests in 12 month s. HPV-n egati ve ASC-U S shoul d be rescr eened with co-te sting in 3 years . All other Pap test inter preta tions shoul d be follo wed accor ding to ASCCP Conse nsus Guide lines for that parti cular inter preta tion. HPV testi ng is order ed as part of refle x testi ng as indic ated by the requi sitio n order and/o r as a resul t of addit ional testi ng reque sts submi tted by the physi aliza. EL ECTRO NICAL LY VERIF IED BY KARMEN RIVERA (ASC ) 04/14 16:47 CL INICA L/MEN STRUA L HISTO RY Menst rual Hx: Irreg ular cycli ng Contr acept kareem Histo ry: Intra uteri ne Devic e Other Clini rock Condi tions : ICD-1 0 Code: z01.4 19, z11.5 1 The Pap test is a scree nila test for uteri ne cervi rock cance r with an inher ent, but low false negat kareem rate. A biops y is recom hilda d for any suspi cious or visib le lesio n. The patie nt shoul d be remin ded to consu lt a gynec ologi c care provi gustavo if they exper ience any suspi cious signs or sympt oms regar dless of the Pap test resul t. END OF T Not Available [facility] Only - [facility] [address] [facility], [place], [address], 04/15/2024 11:30:42 05/13/19 25 05/13/2024 pregn susan test, urine urine NEGATI VE negati ve (SENS ITIVI TY >99%) (SPEC IFICI TY >99%) Not Available [facility] [address], [place], [address], 05/13/2024 11:02:28 06/17/19 25 06/17/2024 pregn susan test, urine urine NEGATI VE negati ve (SENS ITIVI TY >99%) (SPEC IFICI TY >99%) Not Available [facility] [address] [place] [address], [address], 06/17/2024 10:35:54 01/27/20 24 01/27/2024 XR, chest , 2 view [facility] [place] [address] [place] [address] Teleph one Name: Demar Trejo rd 2015 Exam Date: 2023 Age: 43 Physic jillian: MD Bharti, Elio ah : 1980 Examin ation: XR CHEST 2 VIEWS EXAM: Chest, 2 views HISTOR Y: SOB for 3 months . Histor y of histop lasmos is in eye in August. COMPAR ALEJANDRA: None FINDIN GS: No focal consol idatio n, pleura l effusi on, or pneumo thorax is presen t. The cardia c silhou ette is normal . The medias tinal contou rs are normal . Mild degene rative change s are seen throug hout the thorac ic spine. IMPRES CAMMIE: 1. No acute focal consol idatio n. Electr onical ly signed in [place] cribe by: CINDI Dickinson MD on:01/27/2024 11:50 AM cc: Page PAGE 1 of [facility] ES 1 [email or web address] [facility] [address] [place] [address], [address], 01/27/2024 15:40:59 Result Notes None recorded. 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 2023 Dinah Lim [facility], [facility] 4 11:52:20 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 Chani Castro, PEARL GLUE OPERATOR, INTELLIGENCE CHIEF [address] [facility], [place], [address], [facility] 4 09:50:43 Tension-typ e headache 483536430 Active 2023 ROSY Kennedy-C [address] [place] [address], [place], [address], [facility] 4 11:49:34 Migraine without aura 98763013 Active 2023 Faustina Pelayo MD [address] [facility], [place], [address], [facility] 4 15:52:31 Problem Notes None recorded. Procedures Surgical History Date Name Laterality Status Provider Name and Address Organization Details Recorded Time delivery completed Not Available Health Note 11/02/2023 16:25:45 Removal of tonsils completed Not Available Health Note 11/23/2023 11:49:54 Imaging Results Imaging Date Name Status LastModified by Organiz ation Details LastModified Time 01/27/2024 XR, chest, 2 view completed [email or web address] [facility] [address] [place] [address], [address], 01/27/2024 15:40:59 Procedure Notes None recorded. Medical Equipment None Reported. Allergies Allergen ID Allergen Name Allergen Category Reaction Reaction Severity Criticality Documentation Date Start Date Code Code System Note Provider Name and Address Organization Details Recorded Time 7101647 Product containin g penicilli n (product) medicatio n other Not available Not available 05/27/20232006 99599 8001 SNOMED React ion: GI Upset ; Not Available Not Available Not Available 552272 acetamino phen / codeine medicatio n Not available Not available Not available 05/25/20232013 13389 9 RxNorm React ion: Hives ; Other : Dyspn ea; Not Available Not Available Not Available 712268 acetamino phen / hydrocodo ne medicatio n itching Not available Not available 05/25/20232006 81065 2 RxNorm React ion: Itchi ng; Not Available Not Available Not Available 415487 acetamino phen / hydrocodo ne medicatio n Not available Not available Not available 05/25/20232013 44449 2 RxNorm Not Available Not Available Not Available Medications Name Sig Start Date Stop Date Status Note LastModified by Organization Details LastModified Time Mirena 21 mcg/24 hr (up to 8 years) 52 mg intrauteri ne device Take by intraute rine route. 2018 active placed 05/25/19 19 Not Available Not Available Not Available diclofenac 3 % topical gel APPLY TO AFFECTED AREAS 2 TIMES PER DAY active Not Available Not Available No t Available meloxicam 15 mg tablet TAKE 1 TABLET BY MOUTH EVERY DAY 04/06 completed Not Available Not Available Not Available isosorbide mononitrat e ER 30 mg tablet,ext ended release 24 hr TAKE 1 TABLET BY MOUTH EVERY DAY 11/08 completed Not Available Not Available Not Available rizatripta n 10 mg tablet TAKE 1 TABLET NEEDED FOR MIGRAINE S. MAX DOSE 2 IN 24 HOURS. 2023 active Not Available Not Available Not Avai lable diltiazem CD 360 mg capsule,ex tended release 24 hr TAKE 1 CAPSULE BY MOUTH EVERY DAY active Not Available Not Available No t Available prednisolo ne acetate 1 % eye drops,susp ension INSTILL 1 DROP INTO LEFT EYE THREE TIMES DAILY active Not Available Not Available No t Available rizatripta n 10 mg disintegra ting tablet PLEASE SEE ATTACHED FOR DETAILED DIRECTIO NS 02/01 completed Not Available Not Available Not Available doxycyclin e monohydrat e 100 mg capsule TAKE 1 CAPSULE BY MOUTH TWICE A DAY 11/08 completed Not Available Not Available Not Available nitroglyce rin 0.4 mg sublingual tablet DISSOLVE ONE TABLET UNDER THE TONGUE EVERY 5 MINUTES NEEDED FOR CHEST PAIN. DO NOT EXCEED A TOTAL OF 3 DOSES IN 15 MINUTES active Not Available Not Available No t Available methylpred nisolone 4 mg tablets in a dose pack TAKE BY MOUTH DIRECTED PER PACKAGE INSTRUCT IONS 11/08 completed Not Available Not Available Not Available Vitamin D active Not Available Not Ruthann ilable Not Available ranolazine ER 500 mg tablet,ext ended release,12 hr TAKE 1 TABLET BY MOUTH TWICE A DAY active Not Available Not Available No t Available Aimovig Autoinject or 70 mg/mL subcutaneo us auto-injec tor Inject One per month. 2023 active Not Available Not Available Not Avai lable Paxlovid 300 mg (150 mg x 2)-100 mg tablets in a dose pack TAKE 3 TABLETS BY MOUTH TWICE A DAY FOR 5 DAYS 11/08 completed Not Available Not Available Not Available Vitals Date Recorded Body height Body mass index (BMI) Body weight Heart rate Oxygen saturation Oxygen saturation in Arterial blood by Pulse oximetry Systolic blood pressure Diastolic blood pressure Provider Name and Address Organization Details Last Updated DateTime 4 167.64 cm 28.9 kg/m2 39894.0 3 g 93 /min 97 % 97 % 125 mm[Hg] 70 mm[Hg] Rachel Crane [facility] 4 15:21:35 Date Recorded Body height Body mass index (BMI) Body weight Heart rate Oxygen saturation Oxygen saturation in Arterial blood by Pulse oximetry Systolic blood pressure Diastolic blood pressure Provider Name and Address Organization Details Last Updated DateTime 4 167.64 cm 28.8 kg/m2 34714.8 8 g 72 /min 98 % 98 % 122 mm[Hg] 80 mm[Hg] Rachel Singh [facility] 4 11:37:51 Date Recorded Body height Body mass index (BMI) Body weight Heart rate Oxygen saturation Oxygen saturation in Arterial blood by Pulse oximetry Systolic blood pressure Diastolic blood pressure Provider Name and Address Organization Details Last Updated DateTime 4 167.64 cm 28.7 kg/m2 09307.7 2 g 50 /min 97 % 97 % 124 mm[Hg] 76 mm[Hg] Addi Arzate [facility] 4 11:15:07 Date Recorded Body height Body mass index (BMI) Body weight Systolic blood pressure Diastolic blood pressure Provider Name and Address Organization Details Last Updated DateTime 04/06/2024 167.64 cm 28.9 kg/m2 10058.03 g 118 mm[Hg] 70 mm[Hg] Cassidy Nevarez [facility] 4 10:04:04 Social History Question Answer Notes LastModified by [employer] Details LastModified Time Tobacco Smoking Status Never Smoker Addi Huey ahn, [facility] 02/02/2024 11:15:41 Do You Have An Advance Directive? No [email or web address] Information not available 11/23/2023 What Is Your Level Of Alcohol Consumption? Occasional [email or web address] Information not available 11/23/2023 How Many Times Per Week Do You Consume Alcohol? Less Than 1 Time Per Week [email or web address] Information not available 11/23/2023 What Is Your Level Of Caffeine Consumption? Moderate [email or web address] Information not available 11/23/2023 Are You Currently Employed? 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 1-2 Times Per Week [email or web address] Information not available 11/23/2023 Do You Have A Medical Power Of Carton Forming Machine Helper? Yes [email or web address] Information not available 11/23/2023 What Was The Date Of Your Most Recent Tobacco Screening? 11/30/2023 [email or web address] Information not available 11/23/2023 What Is Your Relationship Status? [email or web address] Information not available 11/23/2023 Do You Use Any Illicit Or Recreational Drugs? No [email or web address] Information not available 11/23/2023 Sex: Unknown Functional Status Question Answer Note LastModified by [employer] Details LastModified Time What is your exercise level? Occasional [email or web address] Information not available 11/23/2023 Mental Status None recorded. Family History Relationship Description Onset Age of this Age Resolved Age Notes LastModified by Organization Details LastModified Time Unspecified Relation Attention deficit hyperactivit y disorder [email or web address] Not available 11/01 16:25:44 Mother Arthritis [email or web address] Not available 11/02/2023 16:25:44 Mother Chronic obstructive pulmonary disease [email or web address] Not available 2023 16:25:44 Mother Diabetes mellitus [email or web address] Not available 2023 16:25:44 Mother Heart disease [email or web address] Not available 2023 16:25:44 Brother Asthma [email or web address] Not available 0 11/02/2023 16:25:44 Brother Diabetes mellitus [email or web address] Not available 2023 16:25:44 Brother Seizure disorder [email or web address] Not available 2023 16:25:44 Maternal Grandmother Diabetes mellitus [email or web address] Not available 2023 16:25:44 Father Heart disease [email or web address] Not available 2023 16:25:44 Father Hypertensive disorder [email or web address] Not available 2023 16:25:44 Father Hypercholest erolemia [email or web address] Not available 2023 16:25:44 Paternal Grandmother Heart disease [email or web address] Not available 2023 16:25:44 Paternal Grandmother Cerebrovascu lar accident [email or web address] Not available 11:49:53 Medical History Condition Response Anxiety Disorder Y Diabetes N Bleeding Disorder N Attention-deficit Hyperactivity Disorder N High Blood Pressure N Arthritis N Hyperlipidemia N Cancer N Thyroid Problems N Stroke N Asthma N Depression N COPD N Seizures N Anemia N Heart Disease Y Fibromyalgia N Osteoporosis N Kidney Disease N Gynecological History Statement/Question Response Abnormal Pap N Flow Light Date of LMP 03/28/2024 Sexually Active? Y Menses Monthly N Duration of Flow (days) 3 Age at Menarche 14 Current Control Method IUD LMP Definite Obstetrics History GPAL:G 1 P 1 0 0 1 Type Value Multiple Births 0 Full Term 1 Induced 0 Spontaneous 0 Premature 0 Living 1 Ectopics 0 Total 1 Immunizations Vaccine Type Date Status Note Provider Nam e and Address Organization Details Recorded Time Influenza, split virus, quadrivalent, preservative 0 completed Rachel Singh [facility] 11/30/2023 11:38:08 Influenza, recombinant, quadrivalent, PF 3 completed Rachel Singh [facility] 11/30/2023 11:38:08 Influenza, recombinant, quadrivalent, PF 1 completed Skillett null, [facility] 11/30/2023 11:38:08 MMR 4 completed Skillett null, [facility] 11/30/2023 11:38:08 COVID-19, mRNA, LNP-S, PF, 100 mcg/0.5mL dose or 50 mcg/0.25mL dose 1 completed Skillett null, [facility] 11/30/2023 11:38:08 COVID-19, mRNA, LNP-S, PF, 30 mcg/0.3 mL dose 1 completed Skillett null, [facility] 11/30/2023 11:38:08 COVID-19, mRNA, LNP-S, PF, 30 mcg/0.3 mL dose 1 completed Skillett null, [facility] 11/30/2023 11:38:08 Tdap 4 completed Skillett null, [facility] 11/30/2023 11:38:08 Tdap 4 completed Skillett null, [facility] 11/30/2023 11:38:08 Tdap 3 completed Skillett null, [facility] 11/30/2023 11:38:08 Influenza, split virus, quadrivalent, PF 2 completed Skillett null, [facility] 11/30/2023 11:38:08 Past Encounters Encounter ID Performer Location Encounter Start Date Encounter Closed Date Diagnosis/Indication Diagnosis SNOMED-CT Code Diagnosis ICD10 Code Diagnosis Note [id number] Faustina Pelayo MD [address] [facility] ([place]) [address] [place] [address],[address] [place] [address] 11/09/2023 15:07:31 11/09/2023 16:17:47 Migraine without aura 23354840 G43.717 [id number] Damian Hay MD [address] ([place]) [address] [place] [address] 11/30/2023 11:25:59 11/30/2023 11:56:37 Obstructive sleep apnea of adult 9458174282 103 G47.33 Uses home continuous positive airway pressure ventilation supply 9762650217 103 Z99.11 Daytime somnolence 63413 52614 [address]40[id number] [facility] ([place]) [address],[place] [address] 12/02/2023 10:55:26 12/02/2023 11:22:02 [id number] Dana Almonte PA-C [address] [place] [address] [place]rology ([place]) [address] [place] [address],[address] [place] [address] 02/02/2024 11:05:13 02/02/2024 11:34:37 Migraine without aura 90125480 G43.009 Tension-type headache 39 3544254 G44.209 Additional diagnosis detail: Tension headache [id number] Maricruz Torres MD [facility] ([place]) [address] [place] [address] 04/06/2024 09:41:32 04/11/2024 05:10:11 Routine gynecologic examination 069921568 Z01.419 Screening mammography 24 701633 Z12.31 Health Concerns Section Related Observation LastModified by Organization Detai ls LastModified Time None Recorded Concern Status LastModified by Organization Details LastModified Time None Recorded Advance Directives Directive N: Payers Encounter Date Sequence Insurance Name Policy Number Policy Littlejohn Covered Member ID Littlejohn Member ID Guarantor Name 11/09/2023 [employer] [place] [employer] ([facility] Demar Rondon [id number] Demar Rondon 11/30/2023 1 [facility] HEALTH BENEFITS PLAN - OPEN ACCESS PLUS 32 Demar Rondon [id number] Demar Rondon 11/30/2023 2 [employer] [id number] Eugenio Alcon [id number] Demar Rondon 12/02/2023 1 [facility] HEALTH BENEFITS PLAN - OPEN ACCESS PLUS 32 Demar Rondon [id number] Demar Rondon 12/02/2023 2 [employer] [id number] Eugenio Rondon [id number] Demar Rondon 02/02/2024 [facility]) Demar Rondon [id number] Demar Rondon 04/06/2024 1 [facility] HEALTH BENEFITS PLAN - OPEN ACCESS PLUS 32 Demar Rondon [id number] Demar Rondon 04/06/2024 2 [employer] - [facility] BENEFITS PLAN (POS) [id number] Eugenio Rondon [id number] Demar Rondon Notes Date Note Type Note Provider Name and Address Organization Details Recorded Time 11/09/2023 text/html The patient is a 43-year-old right-handed female who presents today for evaluation of headaches. This started in March of 2001 when she was 20 years old. She fell 23 feet and landed on her feet. She was in the at that time. She is not sure if she hit her head when she fell down. She was on top of a telephone pole. She apparently then walked to the emergency room because nobody would take her. She was also diagnosed with a concussion. She states that she did hit her head while working on the telephone pole. She states that now she has headaches 3-4 times per week. It feels like they are trying to r amp up. She typically has 6-10 headaches per month. The headache typically last 3 days unless she takes Maxalt. If she takes Maxalt, the headache will resolve, but she will have the headaches 3 days in a row. She describes a throbbing sensation that is all over as well as sharp, stabbing pain behind her right eyeball. She has nausea, photophobia, and phonophobia. She rarely has vomiting. She denies any sensitivity to smell. She thinks that looking down may cause the headaches. She denies a family history of migraines. She drinks 24 ounces of black coffee per day. She denies a visual aura. She takes geki-jhq-kerfqlw pain medications 2-3 times a week and Maxalt as needed. She has also tried Imitrex which was not helpful. She states that she is no longer able to benjamin, read books, or play with her daughter due to the headaches. She admits to dizziness and weakness. She denies diplopia, blurry vision, dysphasia, dysarthria, numbness, or tingling. At some point, she was told that she had a TBI. The headaches are often preceded by ringing in the ears. She has been on Depakote, metoprolol, Topamax, and amitriptyline. She is currently on diltiazem. She has not tried any CGRP antagonists, gabapentin, Lyrica, or Cymbalta.tristen Pelayo MD [facility] [place] [address], [phone], [facility] 11/11/2023 13:14:48 11/30/2023 text/html CHIEF COMPLAINT:Obstructi ve sleep apnea. HISTORY OF PRESENT ILLNESS:The patient returns today accompanied by her 10-year-old daughter. Since I last saw her, she has encountered some difficulties adhering to CPAP. She gets frequent sinus infections which makes it difficult to use the CPAP. She is wearing a full face mask. She says about once a night, she might wake up in the middle of the night feeling breathless. She has concluded that she thinks the pressure may be t oo high. She is not aware of snoring. She denied any excessive daytime sleepiness. She does not fall asleep driving. Damian Hay MD [facility] [place] [address], [phone], [facility] 11/30/2023 14:50:43 02/02/2024 text/html Demar is here today for follow-up for migraines and headaches. She was last seen by Dr. Pelayo 3 months ago. At that time she was started on Aimovig 70 mg/ML monthly injections. She reports she has had some constipation. She increased her water and increase her fiber. She also might start taking a stool softener. The patient reports Aimovig has been very helpful for her migraines. She has not had a migraine in the last 6 weeks. She previously was having 7-10 migraines a month. She does take rizatriptan if she does get a migraine. This does usually work well. She overall is very happy with her improvement. She has not had any recent headaches. She denies any other changes to her medical history, surgeries or hospitalizations. She has no other new complaints today. Dana Almonte PA-C [address] [place] [address], [phone], [facility] 02/02/2024 11:49:57 04/06/2024 text/html The patient is a 43-year-old white female who comes to the clinic today for her annual exam. She is doing well. She a Mirena for contraception and is not having any bleeding on it. Her plans to get a vasectomy. She has tolerated the Mirena well. She denies any pelvic pain or any abnormal discharge. She denies any pain with intercourse. Her is supportive. She has normal bowel and bladder function. She has always had normal Paps. She denies any STDs or pelvic inflammatory disease. She has no other questions or concerns at this time. Of note, her Mirena was placed on May 25, 2018,. She is aware it is good for eight years. Maricruz Torres MD [address] [place] [address], [phone], [facility] 04/10/2024 23:06:09 OBGyn Episode No OBEpisode recorded.
--- OUTSIDE RECORDS SUMMARY | 2024-07-02 06:42 | XMS_ITS | Encounter Summary ---
Author Name [facility] [place] Organization [facility] [place] [facility] [place] Address [address] [place] [address] Care Team Providers Care Minesweeping Officer Name Role Phone LUTHER MELLO Primary Care [...] section includes the information on record at [place] for the Encounter. Date/Time Encounter Type Encounter Description Reason Provider Source Jun 03, 2024 08:00 AM PSYTX W PT 60 MINUTES [facility] - IND ICD-10-CM F43.10 Post-traumatic stress disorder, unspecified CHRISTIANO JULIO Arabella Encounter Template Text not used by [place] Assessments - Encounter Diagnoses This section includes the primary and secondary diagnoses documented for the Encounter. Date/Time Primary/Secondary Diagnosis Diagnosis Name Provider Source Jun 07, 2024 03:45 PM PRIMARY Post-traumatic stress disorder, unspecified CHRISTIANO JULIO [facility] Plan of Treatment: Future Appointments (+ 6 months) and Future Tests (+/- 45 days) The Plan of Treatment section includes future care activities for the patient from all [place] treatmentfacilities. This section includes future appointments and future orders which are active, pending or scheduled. Future Appointments This section includes appointments that were scheduled to occur 6 months from the date of the Encounter, up to a maximum of 20 appointments. The data comes from all [place] treatment facilities. Appointment Date/Time Appointment Type Appointme nt Facility Name Jul 05, 2024 09:00 AM AMBULATORY - PSYCHIATRY [facility] September 02, 2024 08:30 AM AMBULATORY - NONE [facility] September 09, 2024 08:30 AM AMBULATORY - MEDICINE [facility] Social History: Smoking Status (Most current) and Tobacco Use (All prior to encounter date) This section includes the most current, and the historical, smoking and tobacco- related health factors from the [place] facility where the Encounter took place. Current Smoking Status This section includes the most current smoking, or tobacco-related health factor, from the [place] facility where the Encounter took place. Date/Time Current Smoking Status Comment Facil ity September 11, 2023 08:30 AM VA-TOBACCO NEVER USED [facility] Encounter Notes: All associated encounter notes This section contains the clinical notes associated to the Encounter. Date/Time Encounter Note(s) Provider Source Jun 03, 2024 07:45 AM MENTAL HEALTH NOTE : LOCAL TITLE: MENTAL HEALTH/TREATMENT NOTE STANDARD TITLE: MENTAL HEALTH NOTE DATE OF NOTE: JUN 03, 2024@07:45 ENTRY DATE: JUN 03, 2024@07:45:47 AUTHOR: CHRISTIANO JULIOIGNER: URGENCY: STATUS: COMPLETED Telehealth Disclosure: Visit conducted by synchronous telehealth. [place] verbal consent obtained. Location/emergency number confirmed. Environment surveyed and all participants identified. Virtual conference room locked. Reason For Visit: Ongoing CPT therapy Patient address during visit: Home: GURJIT CUELLAR [address] [place] [phone] Emergency number confirmed: ----- Cognitive Processing Therapy: Safety Session Time in session (in minutes): 53 SESSION NUMBER: 8 SESSION FORMAT Video Telehealth Session SESSION LOCATION Other location Specify: The telehealth provider is located in [place], [place] DIAGNOSIS: Primary (focus of treatment): Post Traumatic Stress Disorder ASSESSMENT: Date Instrument Raw Trans Scale 05/06/2024 09:00 PCL-5 WEEKLY 26 PCL-5 03/25/2024 14:00 PCL-5 WEEKLY 31 PCL-5 No data available PCL-5 Weekly The score was 35. CHANGE IN SCORE (PCL or PHQ9) CHANGES IN ASSESSMENT SCORES FROM EARLIER ADMINISTRATIONS: There was an 11 point increase in the PCL score since the last administration. This is likely explained by current factors that are stressful to the including an upcoming medical procedure for her daughter as well as the current political unrest RISK INFORMATION The was not a risk to herself or others MENTAL STATUS/BEHAVIORAL OBSERVATIONS The was on time for the scheduled [facility] appointment. She was appropriately dressed [...] time of the session. SESSION CONTENT: The [place] completed the Safety Session of Cognitive Processing Therapy (CPT) for PTSD. The following therapy components were addressed: -Therapist and reviewed [place]'s completed Challenging Beliefs Worksheets to challenge stuck points and generate alternative beliefs. -Therapist and [place] discussed the Safety handout. PRACTICE ASSIGNMENT: -Therapist asked the [place] to review the Trust handout before the next session. -[place] was asked to complete one Challenging Beliefs Worksheet each day, with at least one of these daily worksheets addressing Trust. PLAN Next session planned for agreed upon date/time of: 06/15/2024 /eric/ CHRISTIANO JULIO PSYD LICENSED CLINICAL PSYCHOLOGIST Signed: 06/07/2024 15:46 CHRISTIANO JULIO [facility]
--- OUTSIDE RECORDS SUMMARY | 2024-07-02 06:42 | XMS_ITS | Encounter Summary ---
Author Organization [facility] Address [address] [place] [address] Care Team Providers Care Debarker Operator Name Role Phone Jaime Moran MD Primary Care Provider [phone] Hansel Rosas MD Unavailable [phone] Encounter Details Date Type Department Care Team (Late st Contact Info) Description 01/08/2022 Aventonest Message Enc [facility] [address], [facility] [address] [place] [address] Bogdan Magaña MD [address] [place] [address] Visit Follow Up Social History Tobacco Use [...] suspected to have Coronavirus/COVID-19? No / Unsure 01/08/2022 1:19 PM CDT documented as of this encounter Plan of Treatment Upcoming Encounters Date Type Department Care Team (Late st Contact Info) Description 07/19/2024 11:00 AM CDT Appointment [facility] [address] [place] [address] Maricruz Torres MD [address] [place], [place] [id number] documented as of this encounter Visit Diagnoses Not on filedocumented in this encounter Care Teams Debarker Operator Relationship Specialty Start Date End Date Jaime Moran MD [address] [place] [address] PCP - General INTERNAL MEDICINE 12/12/19 Hansel Rosas MD [address] [place] [address] [place] Counter Clerk CARDIOVASCULAR DISEASE 12/12/19 documented as of this encounter
--- OUTSIDE RECORDS SUMMARY | 2024-07-02 06:42 | XMS_ITS | Encounter Summary ---
Author Organization [facility] Address [address] [place] [address] Care Team Providers Care Excavator Operator Name Role Phone Jaime Moran MD Primary Care Provider [phone] Hansel Rosas MD Unavailable [phone] Encounter Details Date Type Department Care Team (Late st Contact Info) Description 08/27/2020 Bag of Ice Message Enc [facility] [address] [place] [address] Hansel Rosas MD [address] [place] [address] Follow Up/Update Social History Tobacco Use Types Packs/Day Years [...] have Coronavirus / COVID-19? No / Unsure 08/15/2020 3:34 PM CDT documented as of this encounter Plan of Treatment Upcoming Encounters Date Type Department Care Team (Late st Contact Info) Description 07/19/2024 11:00 AM CDT Appointment [facility] [place] [id number] [facility] [place] [address] Maricruz Torres MD [address] [place], [place] [address] documented as of this encounter Visit Diagnoses Not on filedocumented in this encounter Care Teams Excavator Operator Relationship Specialty Start Date End Date Jaime Moran MD [address] [place] [phone] PCP - General INTERNAL MEDICINE 12/12/19 Hansel Rosas MD [address] [place] [address] [place] Silver Cleaner CARDIOVASCULAR DISEASE 12/12/19 documented as of this encounter
--- OUTSIDE RECORDS SUMMARY | 2024-07-02 06:42 | XMS_ITS | Encounter Summary ---
Author Name [facility] [place] Organization [facility] [place] Address [address] [place] [address] Care Team Providers Care Public Stenographer Name Role Phone LUTHER MELLO Primary Care [...] Type Encounter Description Reason Pro vider Source Oct 01, 2023 03:57 PM Outpatient Encounter COMMUNITY CARE CONSULT IHE Encounter Template Text not used by [place] Plan of Treatment: Future Appointments (+ 6 [...] Appointment Type Appointme nt Facility Name Oct 09, 2023 09:00 AM AMBULATORY - PS[facility]IATRY [facility] Oct 15, 2023 08:00 AM AMBULATORY - NONE [facility] Oct 20, 2023 08:30 AM AMBULATORY - NONE [facility] Oct 23, 2023 09:00 AM AMBUL[facility]ORY - SURGERY [facility] Oct 28, 2023 01:00 PM AMBULATORY - PSYCHIATRY [facility] Nov 03, 2023 01:00 PM AMBULATORY - NONE [facility] Nov 04, 2023 01:00 PM AMBULATORY - PSYCHIATRY [facility] Nov 09, 2023 02:15 PM [facility] Nov 17, 2023 09:00 AM AMBULATORY - NONE [facility] Dec 01, 2023 09:00 AM AMBULATORY - NONE [facility] Dec 15, 2023 09:00 AM AMBULATORY - NONE [facility] Dec 21, 2023 01:00 PM AMBULATORY - REHAB MEDICIN E ARIELLA BERMUDEZ [facility] Dec 22, 2023 08:00 AM AMBULATORY - PSYCHIATRY [facility] Jan 05, 2024 08:00 AM AMBULATORY - PSYCHIATRY [facility] Jan 12, 2024 09:00 AM AMBULATORY - NONE [facility] Jan 19, 2024 08:00 AM AMBULATORY - PSYCHIATRY [facility] Feb 02, 2024 02:00 PM AMBULATORY - PSYCHIATRY [facility] Feb 16, 2024 08:00 AM AMBULATORY - PSYCHIATRY [facility] Mar 01, 2024 08:00 AM AMBULATORY - PSYCHIATRY [facility] Mar 09, 2024 02:00 PM AMBULATORY - MEDICINE [facility] Lab Results: +/- 30 days of [...] Range Comment September 11, 2023 10:[address] [facility] CBC W/DIFF Specimen Type: BLOOD No comment entered. Ordering Provider: LUTHER MELLO Report Released Date/Time: September 09, 2023 02:25 PM Reporting Lab: [facility] [address] [facility] [address] Performing Lab: [facility] [address] [facility] [address] WBC 9.4 10*3/uL 4.0-11.0 RBC 4.56 10*6/uL [...] 10*3/uL 0-0.012 September 11, 2023 10:[address] [facility] A1C % Specimen Type: BLOOD Comment: [...] September 09, 2023 02:25 PM Reporting Lab: [address] [address] Performing Lab: [address] [address] A1C % 5.0 0.0-5.6 September 11, 2023 10:[address] [facility] COMPREHENSIVE PNL Specimen Type: PLASMA Comment: [...] September 09, 2023 02:25 PM Reporting Lab: [facility] [address] [facility] [address] Performing Lab: [facility] [address] [facility] [address] ANION GAP 5 mmol/L 5-15 EGFR 113 [...] mg/dL 0.51-0.95 September 11, 2023 10:[address] [facility] LIPID PNL Specimen Type: PLASMA Comment: [...] September 09, 2023 02:25 PM Reporting Lab: [place] [id number] Performing Lab: [place] [address] DIR. HDL 49.8 mg/dL L >=60 TRIGLYCERIDES 85 mg/dL See Comment DIR LDL canc CHOL 163 mg/dL See Comment LDL (CALCULATED) 96.2 mg/dL See Comment September 11, 2023 10:[address] [facility] THYROID CASCADE PANEL Specimen Type: SERUM Comment: Deficiency <20, Insufficiency 20-30, Sufficiency 30-100, Toxicity >100 ng/mL Ordering Provider: LUTHER MELLO Report Released Date/Time: September 09, 2023 02:25 PM Reporting Lab: [address] [address] Performing Lab: [place] [address] TSH3 ULTRA EIA 1.490 u[IU]/mL 0.550-4.78 0 September 11, 2023 10:[address] [facility] URINE ALBUMIN/CREAT ([place] URINE) Specimen Type: URINE Comment: MALB/CREAT ratio cannot be calculated-sobia lyte outside linearity. Ordering Provider: LUTHER MELLO Report Released Date/Time: September 09, 2023 02:25 PM Reporting Lab: [address] [address] Performing Lab: [place] [phone] URINE ALBUMIN(RAND URINE) <0.3 mg/dL <2.0 CREAT(RNDM URINE) 30.50 mg/dL 29-226 CREAT RATIO ([facility] URINE) comment mg/g <30 September 11, 2023 10:[address] [facility] VITAMIN D 25-HYDROXY Specimen Type: SERUM Comment: Deficiency <20, Insufficiency 20-30, Sufficiency 30-100, Toxicity >100 ng/mL Ordering Provider: LUTHER MELLO Report Released Date/Time: September 09, 2023 02:25 PM Reporting Lab: [address] [address] Performing Lab: [address] [place] [address] VITAMIN D 25-HYDROXY 22.90 ng/mL L 30-100 [...] 01, 2023 12:30 PM OUTSIDE STUDY GENE RAL RAD: AZUCENAGURJIT IRWINEE [id number] -[id number] F Exm Date: OCT 01, 2023@12:30 Req Phys: LUTHER MELLO Pat Loc: SPR PACT [employer] 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 If the images and associated report were provided, they can be viewed in [employer] and/or [employer] PACS System. Impression: This procedure was performed outside of the [facility]. If the images and associated report were provided, they can be viewed in [employer] and/or [employer] PACS System. 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 If the images and associated report were provided, they can be viewed in [employer] and/or [employer] PACS System. Impression: This procedure was performed outside of the [facility]. If the images and associated report were provided, they can be viewed in [employer] and/or [employer] PACS System. VERIFIED BY: / [facility] Encounter Notes: All associated encounter notes This section contains the clinical notes associated to the Encounter. Date/Time Encounter Note(s) Provider Source Oct 01, 2023 03:57 PM NONVA NOTE: LOCAL TITLE: [facility] CARE-PATIENT LETTER (AUTO-PRINT) STANDARD TITLE: NONVA NOTE DATE OF NOTE: OCT 01, 2023@15:57 ENTRY DATE: OCT 01, 2023@15:58:01 AUTHOR: KIRSTY PATEL COSIGNER: URGENCY: STATUS: COMPLETED Dear: GURJIT ZENG DO NOT REPORT TO A [place] LOCATION OF CARE You have an appointment with a [facility] provider. Your appointment details are: Appointment date & time: Oct@10:15 [facility] Provider or Facility: [facility] Provider Location: [address] [place] [address], [address] Community Provider Type of Specialty: neurology Referral number: [id number] Referral valid: Oct to Apr You can find your authorization information online at [email or web address] If you have a co-pay for your care or prescriptions, [place] will send you a bill in the mail. Do not pay co-pays to [facility] providers. If you get a bill or are asked for a co-pay, contact [facility] at [phone]. In case of emergency call 911 or go to the nearest emergency department. You or your emergency care provider can contact [place] to report emergency treatment. You have 72 hours to report emergency care to [place]. Call (TTY:711) or visit [email or web address] If you have an immediate need for prescription medication after your community care visit, you may be eligible for up to a 14-day supply, filled at a participating [facility] ([facility]) pharmacy. You can find an in-network pharmacy online at: www.ma.gov/find-locations/ For immediate prescription, provide an eligible pharmacy the following information: BIN: [id number] PCN: [id number] Group: [id number] The prescribed medications must be related to the services authorized on the referral and must be included in the [place] National Formulary. If you do not need medication immediately and for medication supply greater than 14-days, ask the community provider to send your prescription to the pharmacy at [facility] and [place] will mail it to you. To reach the [facility] pharmacy call and press 1. If you are eligible for travel benefits, please note: - Travel will only be paid to the nearest facility that can provide care. - All claims must include proof of attendance attached to the claim. (after-visit summary, discharge paper, letter from treating facility on official letterhead, patient name, dates of service, and provider signature). NOTE: Appointments lists, and preparation instructions are not acceptable. - Claims can be submitted through the Beneficiary Travel Self Service System (BTSSS)at access.ma.gov - For assistance with your travel pay, you may contact Transportation Service at [phone]. KIRSTY PATEL HCS
--- OUTSIDE RECORDS SUMMARY | 2024-07-02 06:42 | XMS_ITS | Encounter Summary ---
Author Name [facility] [place] [facility] [place] Organization [place] Address [address] [place] [address] Care Team Providers Care Patient Care Nursing Assistant Name Role Phone LUTHER MELLO Primary Care [...] Type Encounter Description Reason Provider Source Jan 05, 2024 08:00 AM PSYTX W PT 45 MINUTES MENTAL HEALTH CLINIC - IND ICD-10-CM F43.12 Post-traumatic stress disorder, chronic PEEK,CHRISTIANO E Encounter Template Text not used by [place] Assessments - Encounter Diagnoses This section includes the primary and secondary diagnoses documented for the Encounter. Date/Time Primary/Secondary Diagnosis Diagnosis Name Provider Source Jan 19, 2024 05:53 AM PRIMARY Post-traumatic stress disorder, chronic PECHRISTIANO NI [facility] Plan of Treatment: Future Appointments [...] Appointment Type Appointme nt Facility Name Jan 12, 2024 09:00 AM AMBULATORY - NONE [facility] Jan 19, 2024 08:00 AM AMBULATORY - PSYCHIATRY [facility] Feb 02, 2024 02:00 PM AMBULATORY - PSYCHIATRY [facility] Feb 16, 2024 08:00 AM AMBULATORY - PSYCHIATRY [facility] Mar 01, 2024 08:00 AM AMBULATORY - PSYCHIATRY [facility] Mar 09, 2024 02:00 PM [facility] Mar 25, 2024 02:00 PM AMBULATORY - PSYCHIATRY [facility] Apr 22, 2024 09:00 AM AMBULATORY - PSYCHIATRY [facility] May 06, 2024 09:00 AM AMBULATORY - PSYCHIATRY [facility] Jun 03, 2024 08:00 AM AMBULATORY - PSYCHIATRY [facility] Social History: Smoking Status (Most current) and Tobacco Use (All prior to encounter date) This section includes the most current, and the historical, smoking and tobacco- related health factors from the [place] facility where the Encounter took place. Current Smoking Status This section includes the most current smoking, or tobacco-related health factor, from the [place] facility where the Encounter took place. Date/Time Current Smoking Status Comment Facil ity September 11, 2023 08:30 AM VA-TOBACCO NEVER USED [facility] Encounter Notes: All associated encounter notes This section contains the clinical notes associated to the Encounter. Date/Time Encounter Note(s) Provider Source Jan 05, 2024 08:09 AM MENTAL HEALTH NOTE : LOCAL TITLE: MENTAL HEALTH/TREATMENT NOTE STANDARD TITLE: MENTAL HEALTH NOTE DATE OF NOTE: JAN 05, 2024@08:09 ENTRY DATE: JAN 05, 2024@08:09:52 AUTHOR: CHRISTIANO JULIO COSIGNER: URGENCY: STATUS: COMPLETED Telehealth Disclosure: Visit conducted by synchronous telehealth. verbal consent obtained. Location/emergency number confirmed. Environment surveyed and all participants identified. Virtual conference room locked. Reason For Visit: Ongoing therapy Patient address during visit: Home [address] [place] [address] Emergency number confirmed: PATIENT CELL PHONE - NONE FOUND ----- Cognitive Processing Therapy: Initial Session Time in session (in minutes): 50 SESSION NUMBER: 1 SESSION FORMAT Video Telehealth Session SESSION LOCATION residence - Other [address] [place] [address] DIAGNOSIS: Primary (focus of treatment): PTSD (SC:30%) ASSESSMENT: PCL-5 Weekly The score was 26. RISK INFORMATION The was not a risk to herself or others MENTAL STATUS/BEHAVIORAL OBSERVATIONS The was on time for the scheduled [facility] appointment. She was appropriately dressed and [...] time of the session. SESSION CONTENT: The [place] completed the first session of Cognitive Processing Therapy (CPT) for PTSD. The following therapeutic components were addressed: -Facilitated a good therapeutic relationship. The following elements were utilized to help establish a collaborative, positive working relationship with the -Provided an overview of PTSD symptoms, a cognitive explanation of the development and maintenance of PTSD, and a rationale of CPT. -Presented the with an overview of the 12-session treatment. -Discussed [place]'s readiness to engage in treatment. -Asked the to describe a brief account of their most traumatic event. -Introduced the concept of stuck points. PRACTICE ASSIGNMENT: -Asked to write a one page Impact Statement . -Asked [place] to review Stuck Point Handout and Stuck Point Help Sheet. /eric/ CHRISTIANO JULIO PSYD LICENSED CLINICAL PSYCHOLOGIST Signed: 01/19/2024 05:53 CHRISTIANO JULIO [facility]
--- OUTSIDE RECORDS SUMMARY | 2024-07-02 06:42 | XMS_ITS | Encounter Summary ---
Author Name [facility] [place] [facility] [place] Address [address] [place] [address] Care Team Providers Care Caul Dresser Name Role Phone RIAZ LUTHER Primary Care [...] section includes the information on record at [place] for the Encounter. Date/Time Encounter Type Encounter Description Reason Provider Source Nov 23, 2023 08:47 AM QNHP OL DIG ASSMT&MGMT 21+ CLINICAL PHARMACY ICD-10-CM G43.909 Migraine, unsp, not intractable, without status migrainosus Armen CRUZ Arabella Encounter Template Text not used by [place] Assessments - Encounter Diagnoses This section includes the primary and secondary diagnoses documented for the Encounter. Date/Time Primary/Secondary Diagnosis Diagnosis Name Provider Source Nov 23, 2023 09:08 AM PRIMARY Migraine, unsp, not intractable, without status migrainosus TRICIA CRUZ LLI R [facility] Plan of Treatment: Future Appointments (+ 6 [...] 20 appointments. The data comes from all [place] treatment facilities. Appointment Date/Time Appointment Type Appointme nt Facility Name Dec 01, 2023 09:00 AM AMBULATORY - NONE [facility] Dec 15, 2023 09:00 AM AMBULATORY - NONE [facility] Dec 21, 2023 01:00 PM AMBULATORY - REHAB MEDIC[facility] Dec 22, 2023 08:00 AM AMBULATORY - PSYCHIATRY [facility] Jan 05, 2024 08:00 AM AMBULATORY - PSYCHIATRY [facility] Jan 12, 2024 09:00 AM AMBULATORY - NONE [facility] Jan 19, 2024 08:00 AM AMBULATORY - PSYCHIATRY [facility] Feb 02, 2024 02:00 PM AMBULATORY - PSYCHIATRY [facility] Feb 16, 2024 08:00 AM AMBULATORY - PSYCHIATRY [facility] Mar 01, 2024 08:00 AM AMBULATORY - PSYCHIATRY [facility] Mar 09, 2024 02:00 PM [facility]ATORY - [facility] Mar 25, 2024 02:00 PM AMBULATORY - PSYCHIATRY [facility] Apr 22, 2024 09:00 AM AMBULATORY - PSYCHIATRY [facility] May 06, 2024 09:00 AM AMBULATORY - PSYCHIATRY [facility] Encounter Notes: All associated encounter notes This section contains the clinical notes associated to the Encounter. Date/Time Encounter Note(s) Provider Source Nov 23, 2023 08:47 AM PHARMACY CONSULT: LOCAL TITLE: CONSULT/PHARMACY STANDARD TITLE: PHARMACY CONSULT DATE OF NOTE: NOV 23, 2023@08:47 ENTRY DATE: NOV 23, 2023@08:48:03 AUTHOR: JACK CRUZ EXP COSIGNER: URGENCY: STATUS: COMPLETED Pharmacy Non-Formulary Request: Aimovig-Approved The medical record has been reviewed with regard to this prior authorization drug request. This prior authorization drug request originated with a [facility] provider. Medication requested: ERENUMAB-AOOE 70MG/ML AUTOINJECTOR 1ML Medication indication: migraine Medical history relevant to this request: ADR: SULFA DRUGS, PENICILLIN, VICODIN Active Outpatient Prescriptions: Active Outpatient Medications (including Supplies): Active Outpatient Medications Status 1) CHOLECALCIF 25MCG (D3-1,000UNIT) TAB TAKE ONE TABLET ACTIVE BY MOUTH DAILY 2) DICLOFENAC NA 1% TOP GEL APPLY 2 GRAMS TOPICALLY FOUR ACTIVE TIMES A DAY -DON'T EXCEED 16 GRAMS DAILY TO ANY AFFECTED LEG AREA. DON'T EXCEED 8 GRAMS DAILY TO ANY AFFECTED ARM AREA. DON'T EXCEED A TOTAL DOSE OF 32 GRAMS DAILY OVER ALL AREAS. *USE DOSING CARD TO MEASURE DOSE.* APPLY TO FOOT/FEET 4 TIMES A DAY,. Active Non-VA Medications Status 1) Non-VA ALBUTEROL 90MCG (CFC-F) 200D ORAL INHL 2 PUFFS ACTIVE MOUTH EVERY 4 HOURS NEEDED 2) Non-VA DILTIAZEM (EQV-TIAZAC AB4) 360MG 24HR CP 360MG ACTIVE MOUTH EVERY DAY 3) Non-VA MAGNESIUM OXIDE 400MG TAB 400MG MOUTH TWICE A ACTIVE DAY 4) Non-VA NITROGLYCERIN (EQ-NITROSTAT) 0.4MG SL TB 0.4MG ACTIVE UNDER THE TONGUE EVERY 5 MINUTES NEEDED 5) Non-VA RANOLAZINE 500MG SA TAB 500MG MOUTH DAILY ACTIVE 6) Non-VA RIZATRIPTAN BENZOATE 10MG TAB 10MG MOUTH EVERY ACTIVE DAY NEEDED 8 Total Medications 43 y/o patient referred to [facility] Neurology for migraines. She reports 6-10 migraine HAs per month that last around 3 days in a row. She takes Maxalt. She has also trialed Imitrex. For prophylaxis, she has trialed metoprolol, Topamax, amitriptyline, and Depakote. She is [id number] on diltiazem. As patient is still reporting quite a few HAs per month, provider is requesting Aimovig for patient. Erenumab-aooe (AIMOVIG) for Chronic Migraine Prevention Criteria for Use Exclusion Criteria If the answer to ANY item below is met, then the patient should NOT receive erenumab. [-] Patient has uncontrolled hypertension [-] Concurrent preventive therapy with another calcitonin gene-related peptide (CGRP) targeting agent (including other CGRP-targeting monoclonal antibodies and gepants) [-] Patient with diagnosis of hemiplegic migraine or tension headache Inclusion Criteria All of the following must be fulfilled to receive erenumab for chronic migraine. [+] Treatment initiated by a [place] neurologist or locally designated headache expert [+] Patient started on erenumab must have a scheduled blood pressure check 2-4 weeks after initiation of therapy [+] Chronic Migraine defined as at least 15 headache days per month with at least 8 migraine days per month [+] Contraindication, intolerance, or lack of therapeutic response after at least 12 weeks of a therapeutic dose of one beta janet (e.g. metoprolol 50- 100 mg BID, propranolol 20-80 mg BID)1 [+] Contraindication, intolerance, or lack of therapeutic response after at least 12 weeks of a therapeutic dose of topiramate 50-200 mg BID1 [+] Contraindication, intolerance, or lack of therapeutic response after at least 12 weeks of a therapeutic dose of divalproex 500-1000 mg daily (divalproex is not recommended in patients who can become )1 Patient does meet the CFU for Aimovig and request is approved. The request is approved - A documented therapeutic failure of the preferred formulary alternative(s) exists /es/ Jack Cruz, PharmD, BCPS, [facility] Pharmacist Signed: 11/23/2023 09:09 JACK CRUZ [facility]
--- OUTSIDE RECORDS SUMMARY | 2024-07-02 06:42 | XMS_ITS | Encounter Summary ---
Author Name [facility] [place] [facility] [place] Organization [place] Address [address] [place] [address] Care Team Providers Care Natural Sciences Professor Name Role Phone RIAZ LUTHER Primary Care [...] section includes the information on record at [place] for the Encounter. Date/Time Encounter Type Encounter Description Reason Provider Source Nov 03, 2023 01:00 PM THER FILIPE BROOKS ADDL 15 MIN SPEECH-LANGUAGE PATHOLOGY ICD-10-CM R41.840 Attention and concentration deficit ALBERT DEGROOT Arabella Encounter Template Text not used by [place] Assessments - Encounter Diagnoses This section includes the primary and secondary diagnoses documented for the Encounter. Date/Time Primary/Secondary Diagnosis Diagnosis Name Provider Source Nov 03, 2023 03:27 PM PRIMARY Attention and concentration deficit [facility] [facility] Plan of Treatment: Future Appointments (+ [...] 20 appointments. The data comes from all [place] treatment facilities. Appointment Date/Time Appointment Type Appointme nt Facility Name Nov 04, 2023 01:00 PM AMBULATORY - PS[facility]ATRY [facility] Nov 09, 2023 02:15 PM [facility]ORY [facility] NONE [facility] Nov 17, 2023 09:00 AM AMBULATORY - NONE [facility] Dec 01, 2023 09:00 AM AMBULATORY - NONE [facility] Dec 15, 2023 09:00 AM AMBULATORY - NONE [facility] Dec 21, 2023 01:00 PM [facility]ULATORY - [facility] Dec 22, 2023 08:00 AM AMBULATORY - PS[facility]CHIATRY [facility] Jan 05, 2024 08:00 AM AMBULATORY - PSYCHIATRY [facility] Jan 12, 2024 09:00 AM AMBULATORY - NONE [facility] Jan 19, 2024 08:00 AM AMBULATORY - PSYCHIATRY [facility] Feb 02, 2024 02:00 PM AMBULATORY - PSYCHIATRY [facility] Feb 16, 2024 08:00 AM AMBULATORY - PSYCHIATRY [facility] Mar 01, 2024 08:00 AM AMBULATORY - PSYCHIATRY [facility] Mar 09, 2024 02:00 PM AMBULATORY - MEDICINE [facility] Mar 25, 2024 02:00 PM AMBULATORY - PSYCHIATRY [facility] Apr 22, 2024 09:00 AM AMBULATORY - PSYCHIATRY [facility] Encounter Notes: All associated encounter notes This section contains the clinical notes associated to the Encounter. Date/Time Encounter Note(s) Provider Source Nov 03, 2023 01:19 PM SPEECH PATHOLOGY N OTE: LOCAL TITLE: SPEECH PATHOLOGY/DAILY PROGRESS NOTE STANDARD TITLE: SPEECH PATHOLOGY NOTE DATE OF NOTE: NOV 03, 2023@13:19 ENTRY DATE: NOV 03, 2023@13:20:11 AUTHOR: ALBERT DEGROOT EXP COSIGNER: URGENCY: STATUS: COMPLETED VISIT #: 2 ONSET OF PROBLEM: consult dated 10/01/2023 PLAN ESTABLISHED: 10/20/2023 REFERRING PROVIDER: Dr. Oconnell (polytrauma clinic) Diagnosis: Attention and concentration deficit Visit conducted by synchronous video telehealth; patient verbal consent obtained. Location and emergency number confirmed. Participants: , MOSAIC FLOOR LAYER S: Ms. Rondon is a 43 year old female who presents to speech pathology clinic via VVC this date, 11/03/2023, with chief complaints of: challenges with memory, remembering major events, struggling for words. The 's last name and last 4 of social security number were verified upon entry into the speech pathology virtual conference room. The arrived unaccompanied to the session. The is a primary Bhutanese speaker, and the session was conducted in Bhutanese. No dressmaker garment fitter required. The also reported the following: -She feels she has a pretty good process in place for work, but her problem is her frustration that she simply cannot remember things without these processes. -Word finding issues happen often in conversations, and Ms. Rondon reports her becomes annoyed by this. -Ms. Rondon reports she feels that she tries to reach the words she wants to say, but she is going about the process backwards to get to the word or point she wants to say/make. O: Cognitive communication therapy was conducted with the in order to address her concerns for her memory and word finding difficulty. MOSAIC FLOOR LAYER and had clinical discussion on examples of the 's challenges and how they impact her day to day life. Strategies suggested: For work: Create a list of things you need to ensure are updated before the end of each day. With this, set an alert, alarm, etc. to pop up on your screen to remind you to update your list/processes. For home: Word finding strategies: -Retrace the steps of the conversations to return to original point or question -LEAP strategy for remembering what was said in conversations/staying on topic. Copy of LEAP strategy sent to in the mail. A: The presents with attention and concentration [...] via VVC in approximately 2 weeks to begin cognitive communication therapy to target goals for improving attention, memory and word finding. The will receive cognitive communication therapy weekly to biweekly (depending on [facility]'s availability) for 5-7 more weeks to address the following goals: LTG: The will improve day-to-day memory and attention with supports. STG: The will employ cognitive strategies taught in speech therapy to facilitate her memory in the short term. STG: The will employ word-finding strategies in speech therapy setting to facilitate word finding in day to day life. Time spent with : 60 minutes /eric/ ALBERT DEGROOT Speech Language Pathologist Signed: 11/03/2023 15:28 ALBERT DEGROOT [facility]
--- OUTSIDE RECORDS SUMMARY | 2024-07-02 06:42 | XMS_ITS | Encounter Summary ---
Author Name [facility] [place] [facility] [place] Organization [place] Address [address] [place] [address] Care Team Providers Care Fish Grader Name Role Phone LUTHER MELLO Primary Care [...] Type Encounter Description Reason Provider Source Feb 16, 2024 08:00 AM PSYTX W PT 60 MINUTES MENTAL HEALTH CLINIC - IND ICD-10-CM F43.12 Post-traumatic stress disorder, chronic PEEK,CHRISTIANO E Encounter Template Text not used by [place] Assessments - Encounter Diagnoses This section includes the primary and secondary diagnoses documented for the Encounter. Date/Time Primary/Secondary Diagnosis Diagnosis Name Provider Source Feb 16, 2024 09:20 AM PRIMARY Post-traumatic stress disorder, chronic PEEKCHRISTIANO [facility] Plan of Treatment: Future Appointments [...] Appointment Type Appointme nt Facility Name Mar 01, 2024 08:00 AM AMBULATORY - PSYCHIATRY [facility] Mar 09, 2024 02:00 PM AMB[facility]ATORY - [facility]ICINE [facility] Mar 25, 2024 02:00 PM AMBULATORY - PSYCHIATRY [facility] Apr 22, 2024 09:00 AM AMBULATORY - PSYCHIATRY [facility] May 06, 2024 09:00 AM AMBULATORY PSYCHIATRY [facility] Jun 03, 2024 08:00 AM AMBULATORY PSYCHIATRY [facility] Jul 05, 2024 09:00 AM AMBULATORY PSYCHIATRY [facility] Lab Results: +/- 30 days of the encounter This section includes the Chemistry and Hematology Lab Results on record with [place] for the patient. Radiology Reports and Pathology Reports are provided separately, in subsequent sections. Lab Results This section contains the Chemistry/Hematology Results that were resulted 30 days before or 30 daysafter the date of the Encounter. Date/Time Source Result Type Result - Unit Interpretation Reference Range Comment Mar 09, 2024 01:49 PM [facility] STUDY URANIUM OUTPATIENT SPOT URINE Specimen Type: URINE, SPOT No comment entered. Ordering Provider: ME ANGELIKA ANTON Report Released Date/Time: Mar 14, 2024 05:40 AM Reporting Lab: [place] [id number] Performing Lab: [place] [id number] VOLUME 119 mL CREATININE (C0NC) 29.33 mg/dL 20-320 ELAPSED TIME spot RATIO URANIUM/CRE 0.0218 0.001-0.050 RATIO U235/U238 BELOW DETECTION LIMIT 0.006-0.009 URANIUM (SAILING INSTRUCTOR) 0.0064 ug/L 0-0.0580 Social History: Smoking Status (Most current) and Tobacco Use (All prior to encounter date) This section includes the most current, and the historical, smoking and tobacco- related health factors from the [place] facility where the Encounter took place. Current Smoking Status This section includes the most current smoking, or tobacco-related health factor, from the [place] facility where the Encounter took place. Date/Time Current Smoking Status Comment Facil ity September 11, 2023 08:30 AM VA-TOBACCO NEVER USED [facility] Encounter Notes: All associated encounter notes This section contains the clinical notes associated to the Encounter. Date/Time Encounter Note(s) Provider Source Feb 16, 2024 08:59 AM MENTAL HEALTH NOTE : LOCAL TITLE: MENTAL HEALTH/TREATMENT NOTE STANDARD TITLE: MENTAL HEALTH NOTE DATE OF NOTE: FEB 16, 2024@08:59 ENTRY DATE: FEB 16, 2024@08:59:27 AUTHOR: CHRISTIANO JULIO COSIGNER: URGENCY: STATUS: COMPLETED Telehealth Disclosure: Visit conducted by synchronous telehealth. verbal consent obtained. Location/emergency number confirmed. Environment surveyed and all participants identified. Virtual conference room locked. Reason For Visit: Ongoing therapy Patient address during visit: Home [address] [place] [address] Emergency number confirmed: PATIENT CELL PHONE - ----- Cognitive Processing Therapy: Trauma Event Session Time in session (in minutes): 53 SESSION NUMBER: 4 SESSION FORMAT Video Telehealth Session SESSION LOCATION Other location Specify: Provider located in [place], [place] DIAGNOSIS: Primary (focus of treatment): Post Traumatic Stress Disorder ASSESSMENT: Date Instrument Raw Trans Scale 02/02/2024 14:00 PCL-5 WEEKLY 29 PCL-5 01/19/2024 08:00 PCL-5 WEEKLY 26 PCL-5 No data available PCL-5 Weekly The score was 25. CHANGE IN SCORE (PCL or PHQ9) CHANGES IN ASSESSMENT SCORES FROM EARLIER ADMINISTRATIONS: The 's PCL score was 4 points lower than the last administration RISK INFORMATION The was not a risk to herself or others MENTAL STATUS/BEHAVIORAL OBSERVATIONS The was on time for the scheduled [facility] appointment. She was appropriately dressed and neatly groomed. She was alert and fully oriented. The was pleasant and cooperative for the session. Energy was appropriate to the session. Mood was mildly anxious with a less restricted affect. Periodically tearful as she discussed feelings of guilt regarding her survival when others did not come home. Thought processes were clear and goal-directed; thought [...] time of the session. SESSION CONTENT: The [place] completed the Trauma Event session of Cognitive Processing Therapy (CPT) for PTSD. The following therapy components were addressed: -Therapist reviewed the completed A-B-C Worksheets with . -Therapist helped [place] connect feelings to thoughts. -The does not appear to be struggling with the trauma account as much as she does with the survivor guilt associated with the event PRACTICE ASSIGNMENT -Therapist asked [place] to complete the Challenging Questions worksheed using two garrett stuck points that appear to be at the heart of maintaining PTSD symptoms PLAN Next session planned for agreed upon date/time of: 03/01/24 at 8a /eric/ CHRISTIANO JULIO PSYD LICENSED CLINICAL PSYCHOLOGIST Signed: 02/16/2024 09:20 CHRISTIANO JULIO [facility]
--- OUTSIDE RECORDS SUMMARY | 2024-07-02 06:42 | XMS_ITS | Encounter Summary ---
Author Name [facility] [place] Organization [facility] [place] [facility] [place] Address [address] [place] [address] Care Team Providers Care Piping Manager Name Role Phone RIAZ LUTHER Primary Care [...] section includes the information on record at [place] for the Encounter. Date/Time Encounter Type Encounter Description Reason Provider Source Jan 12, 2024 09:00 AM THER FILIPE BROOKS ADDL 15 MIN SPEECH-LANGUAGE PATHOLOGY ICD-10-CM R41.840 Attention and concentration deficit ALBERT DEGROOT Arabella Encounter Template Text not used by [place] Assessments - Encounter Diagnoses This section includes the primary and secondary diagnoses documented for the Encounter. Date/Time Primary/Secondary Diagnosis Diagnosis Name Provider Source Jan 12, 2024 11:06 AM PRIMARY Attention and concentration deficit ALBERT DEGROOT [place] [facility] Plan of Treatment: Future Appointments (+ [...] 20 appointments. The data comes from all [place] treatment facilities. Appointment Date/Time Appointment Type Appointme nt Facility Name Jan 19, 2024 08:00 AM AMBULATORY - PSYCH[facility]ATRY [facility] Feb 02, 2024 02:00 PM AMBULATORY - PSYCHIATRY [facility] Feb 16, 2024 08:00 AM AMBULATORY - PSYCHIATRY [facility] Mar 01, 2024 08:00 AM AMBULATORY - PSYCHIATRY [facility] Mar 09, 2024 02:00 PM [facility] Mar 25, 2024 02:00 PM AMBULATORY - PSYCHIATRY [facility] Apr 22, 2024 09:00 AM AMBULATORY - PSYCHIATRY [facility] May 06, 2024 09:00 AM AMBULATORY - PSYCHIATRY [facility] Jun 03, 2024 08:00 AM AMBULATORY - PSYCHIATRY [facility] Jul 05, 2024 09:00 AM AMBULATORY - PSYCHIATRY [facility] Encounter Notes: All associated encounter notes This section contains the clinical notes associated to the Encounter. Date/Time Encounter Note(s) Provider Source Jan 12, 2024 10:50 AM PHYSICAL MEDICINE REHAB NOTE: LOCAL TITLE: ARSALAN/SPEECH RECERTIFICATION NOTE STANDARD TITLE: PHYSICAL MEDICINE REHAB NOTE DATE OF NOTE: JAN 12, 2024@10:50 ENTRY DATE: JAN 12, 2024@10:50:40 AUTHOR: ALBERT DEGROOT COSIGNER: LUTHER MELLO URGENCY: STATUS: COMPLETED DISCHARGE Date:Dec Diagnosis: Attention and Concentration Deficit Visit #: 5 ONSET OF PROBLEM: consult dated 10/01/2023 PLAN ESTABLISHED: 10/20/2023 REFERRING PROVIDER: Dr. Oconnell (polytrauma clinic) Reviewed/Recertified: 01/12/2024 Diagnosis: Attention and Concentration Deficit Visit conducted by synchronous video telehealth; patient verbal consent obtained. Location and emergency number confirmed. Environment surveyed and all participants identified. Virtual conference room was locked. Participants: and SUPERVISOR PUTTY AND CALUKING S: Ms. Rondon is a 43 year old female who presents to speech pathology clinic via [facility] this date, 01/12/2024, with chief complaints of: challenges with memory, remembering major events, struggling for words. The 's last name and last 4 of social security number were verified upon entry into the speech pathology virtual conference room. The was unaccompanied to the session. The is a primary Prydeinig speaker, and the session was conducted in Prydeinig. No fabrication supervisor required. The also reported the following: Ms. Rondon has been able to use retracing cues during conversations as of late. She feels this is helping. She recognized a time, recently, when she knew she may struggle for words to say, and she reported she chose not to participate in the conversation. Ms. Rondon reported the conversation between the others she was with was controversial, and she would have rather not discussed the subject. She reported she did NOT feel isolated from conversing due to her difficulty with word finding. The also reported that she continues to have a difficult time with word finding when others become annoyed with her difficulty. The reports feeling successful with the cognitive strategies that have been taught to her over previous sessions. She feels she is adapting well in work environment and at home. O: Cognitive communication therapy was implemented to facilitate the 's reported continuous challenges with word finding in conversations. SUPERVISOR PUTTY AND CALUKING coached on Word Finding strategies including: delay, describe, association, synonym, first letter, gesture, draw, categorize, or come back later. The was provided with a verbal and visual example of how to use each. She verbalized understanding and demonstrated use of these strategies accurately. The was coached on applying these strategies to actual scenarios, and she was coached on how to use these strategies in practice to become more familiar and comfortable with the use of these compensatory word finding strategies. -Use word games, play along with game shows, etc. Engage with others to practice these. Let the person know you are practicing to hold you accountable to utilize strategies. SUPERVISOR PUTTY AND CALUKING reviewed the plan of care with the A: The presents with attention and concentration challenges in daily life which impact her memory in the short term. She has relevant medical history of TBI in 2000. The has made progress in use of compensatory strategies to combat challeges with memory, focus, and word finding. P: The will be discharged from speech pathology clinic at this time. She has met goals according to POC. SUPERVISOR PUTTY AND CALUKING will plan to check in with upon return from upcoming maternity leave. LTG: The will improve day-to-day memory and attention with supports. STG: The will employ cognitive strategies taught in speech therapy to facilitate her memory in the short term (Meeting as of 01/12/2024, per self report). STG: The will employ word-finding strategies in speech therapy setting to facilitate word finding in day to day life (Meeting as of 01/12/2024 per observation of use in today's session). Time spent with the : 35 minutes EDUCATIONAL TOPIC: Discharge Plans, Education on Word Finding Strategies LEARNER:Patient STATUS OF PATIENT:Outpatient CURRENT KNOWLEDGE:Adequate LEARNING ABILITY:Able to learn. READINESS TO LEARN:Accepting LEARNING BARRIERS IDENTIFIED:None TEACHING METHODS:Educational Lecture on Educational Topic, Printed Literature on Educational Topic OUTCOME/COMMENTS:Verbalizes Understanding/Intent to Comply Comments: THE PRIMARY CARE PROVIDER IS BEING ASKED TO COSIGN THIS DOCUMENT. THE COSIGNER CONCURS WITH THE NEED FOR THESE SERVICES FURNISHED UNDER THIS PLAN OF TREATMENT AND WHILE UNDER HIS/HER CARE. IF THE COSIGNER DOES NOT CONCUR. THE COSIGNER WILL ENTER AN ADDENDUM TO THIS PROGRESS NOTE. /eric/ ALBERT DEGROOT Speech Language Pathologist Signed: 01/12/2024 11:06 /eric/ RICK SALINAS Nurse Practitioner Cosigned: 01/12/2024 16:37 ALBERT DEGROOT [facility]
--- OUTSIDE RECORDS SUMMARY | 2024-07-02 06:42 | XMS_ITS | Encounter Summary ---
Author Organization [facility] Address [address] [place] [address] Care Team Providers Care Skid Wrapper Name Role Phone Jaime Moran MD Primary Care Provider [phone] Hansel Rosas MD Unavailable [phone] Encounter Details Date Type Department Care Team (Latest Contact Info) Description 09/01/2022 [email or web address] Message Enc [facility] [address] [place] [address], [facility] [address] [place] [address] Bogdan Magaña MD [address] [place] [address] MRI for right knee Social History Tobacco Use Types Packs/Day Years [...] suspected to have Coronavirus/COVID-19? No / Unsure 09/03/2022 10:48 AM CDT documented as of this encounter Plan of Treatment Upcoming Encounters Date Type Department Care Team (Late st Contact Info) Description 07/19/2024 11:00 AM CDT Appointment [facility] [address] [place] [address] Maricruz Torres MD [address] [place], [place] [id number] documented as of this encounter Visit Diagnoses Not on filedocumented in this encounter Care Teams Skid Wrapper Relationship Specialty Start Date End Date Jaime Moran MD [address] [place] [id number] PCP - General INTERNAL MEDICINE 12/12/19 Hansel Rosas MD [address] [place] [address] [place] Punch Operator CARDIOVASCULAR DISEASE 12/12/19 documented as of this encounter
--- OUTSIDE RECORDS SUMMARY | 2024-07-02 06:42 | XMS_ITS | Clinical Summary ---
Author Organization [facility] Address [address] [place] [address] Care Team Providers Care Farm Helper Name Role Phone Jaime Moran MD Primary Care Provider Hansel Rosas MD Unavailable [phone] Allergies Active Allergy Reactions Criticality Noted Date Comments Codeine Hives Medium 05/17/2014 Hydrocodone-Acetaminophen Hives Medium 05/17/2014 Latex Swelling Medium 10/05/2015 Penicillins Vomiting Low 10/05/2015 Medications levonorgestrel 20 MCG/DAY IUD 9 Active meloxicam (MOBIC) 15 MG tabletIndications:S prain of medial collateral ligament of right knee, subsequent encounter,Patellofe moral pain syndrome of right knee Take 1 tablet (15 mg total) by mouth daily. 30 tablet 2 3 Active albuterol sulfate HFA 108 (90 Base) MCG/ACT inhaler INHALE 1 - 2 PUFFS BY MOUTH EVERY 4 HOURS NEEDED 3 Active magnesium oxide (MAG-OX) 400 MG tablet Take 1 tablet (400 mg total) by mouth 2 (two) times daily. 3 Active ASHWAGANDHA OR Take 200 mg by mouth 2 (two) times daily. Active nitroglycerin (NITROSTAT) 0.[address] 1 tablet (0.4 mg total) under the tongue every 5 (five) minutes as needed. FOR CHEST PAIN DO NOT EXCEED A TOTAL OF 3 DOSES IN 15 MINUTES 3 Active dilTIAZem ER (TIAZAC) 360 MG 24 hr capsule Take 1 capsule (360 mg total) by mouth daily. 3 Active Diclofenac Sodium 3 % Gel APPLY TO AFFECTED AREAS 2 TIMES PER DAY 3 Active dilTIAZem CD 360 MG CAPSULE SR 24 HR 24 hr capsule Take 1 capsule by mouth daily. 3 Active rizatriptan (MAXALT-CARDIAC CATH TECHNICIAN) 10 MG disintegrating tablet Take by mouth as needed. 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 Contusion of right knee, initial encounter 03/31 Sprain of medial collateral ligament of right knee, subsequent encounter 06/16/2022 Patellofemoral pain syndrome of right knee 08/25 Pulmonary hypertension ([facility]) 020 Shortness of breath 01/04/2020 H/O: pneumonia 01/04/2020 Palpitations 12/13/2019 H/O syncope 12/13/2019 Nonspecific abnormal electrocardiogram (ECG) (EK G) 12/13/2019 Resolved Problems Problem Noted Date Diagnosed Date Resolved Date Follow-up examination after orthopedic surgery 03/19/2022 06/23/2022 Immunizations Name Administration Dates Next Due Tdap (Boostrix) 08/08/2023 Family History Medical History Relation Comments Heart Attack Maternal Grandfather Cervical cancer Maternal Grandmother Heart Attack Paternal Grandfather Stroke Paternal Grandmother Relation Status Comments Brother 1 Alive Brother 2 Alive Father Alive Maternal Grandfather Maternal Grandmother Mother Alive Paternal Grandfather Paternal Grandmother Sister Alive Social History Tobacco Use Types Packs/Day Years Used Date Smoking Tobacco: Never Smokeless Tobacco: Never Tobacco Cessation:Counseling Given: Not Answered Alcohol Use Standard Drinks/Week Comments Yes 0 (1 standard drink = 0.6 oz pur e alcohol) 2 per week AUDIT-C Answer Date Recorded Q1: How often do you have a drink containing alc ohol? Never 12/13/2019 Average Number of Drinks Not on file 020 Frequency of Binge Drinking Not on file 11/25 Comments No Sex and Gender Information Value Date Recorded Sex Assigned at Not on file Legal Sex Female 9:56 PM CDT Gender Identity Female 08/12/2021 6:21 AM CDT Sexual Orientation Not on file Occupation Industry Job Start Date Job End Date Not on file Not on file Not on file Not on file Last Filed Vital Signs Vital Sign Reading Time Taken Comments Blood Pressure 142/95 08/08/2023 6:35 PM CDT Pulse 79 08/08/2023 3:53 PM CDT Temperature 36.6 C (97.8 F) 08/08/2023 3:57 PM CDT Respiratory Rate 20 08/08/2023 3:53 PM CDT Oxygen Saturation 100% 08/08/2023 6:35 PM CDT Inhaled Oxygen Concentration - - Weight 80.9 kg (178 lb 6 oz) 08/08/2023 3:53 PM CDT Height 167.6 cm (5' 6 ) 08/08/2023 3:53 PM CDT Body Mass Index 28.79 08/08/2023 3:53 PM CDT Plan of Treatment Upcoming Encounters Date Type Department Care Team (Late st Contact Info) Description 07/19/2024 11:00 AM CDT Appointment [facility] [address] [address] Maricruz Chen MD [address] [facility] [place] [address] Health Maintenance Due Date Last Done Comments Cervical Cancer Screening Pap Smear (Age 30 to 64) Every 3 Years 1981 Annual Physical 1984 Hepatitis C 09/17/1999 Cervical Cancer Screening Pap with HPV Testing (Age 30 to 64) Every 5 Years 09/17/2011 Cervical Cancer Screening with HPV 09/17/2011 COVID-19 Vaccine ( season) 2023 03/27/2021, 07/27/2020, 06/29/2020 Influenza Adult (#1) 2024 01/09/2022, 03/27/2021, 02/28/2020, Additional history exists PHQ-2 (Physician [facility] [place]) 04/27/2024 Mammogram Screening 07/13/2025 07/14/2023, 3 DTaP, Tdap and Td Vaccines (4 - Td or Tdap) 08/07/2033 08/08/2023, 08/31/2013, 02/07/2012, Additional history exists Meningococcal Vaccine Aged Out 08/28/2000 No sushila misa eligible based on patient's age to complete this topic Hepatitis B Vaccines Completed 08/16/2010, 01/05/2010, 11/03/2009 HPV Vaccines Aged Out No longer eligi ble based on patient's age to complete this topic Meningococcal B Vaccine Aged Out No l onger eligible based on patient's age to complete this topic Pneumococcal Vaccine: Pediatrics (0 to 5 Years) and At-Risk Patients (6 to 64 Years) Aged Out No longer eligible based on patient's age to complete this topic RSV Immunizations Under 20 Months Aged Out No longer eligible based on patient's age to complete this topic Medical Devices Implanted Type Area Remote Encoding Center Manager Device Identifier Shelf Expiration Date Model / Serial / Lot Mpfl Implant System, Fastthread Screw And Biocompsite Swivelock Anchors Implanted:Qty: 1 on 03/06/2022 by Bogdan Magaña MD at [facility] Right: Knee [employer] [id number] 11/24/2025 [id number]- BC / / [id number] Versagfaft 3.5 Tendon Implanted:Qty: 1 on 03/06/2022 by Bogdan Magaña MD at [facility] Right: Knee [employer] 12/21/2024 [id number] / [id number] / [id number] Procedures Procedure Name Priority Date/Time Associated Diagnosis Comments MG SCREENING W ALY SHONA DIGI Routine 07/14/2023 2:16 PM CDT Visit for screening mammogram from Last 3 Months or Most Recently Relevant to Health Maintenance Results * MG SCREENING W ALY SHONA DIGI (07/14/2023 2:16 PM CDT) Anatomical Region Laterality Modality Breast Bilateral Mammography 07/14/2023 4:09 PM CDT Narrative 07/14/2023 4:11 PM CDT EXAMINATION: BILATERAL SCREENING MAMMOGRAPHY Exam Date: 07/14/2023 12:27 PM CLINICAL INDICATION: 42 years of age female routine screening. COMPARISON: Screening mammogram(s) from 06/18/2022. TECHNIQUE: Digital CC & MLO views. Tomosynthesis imaging acquisition Study read with the assistance of a computer-aided detection system. TISSUE DENSITY: The breast tissue is heterogeneously dense, which may obscure small masses. FINDINGS: A few isolated benign punctate calcifications. No suspicious grouping of microcalcifications, architectural distortion, or new dominant suspicious nodule 3 dimensionally demonstrated in either breast. IMPRESSION: No interval features to suggest malignancy. In the absence of clinical symptoms, return for annual screening mammogram due in 1 year. RECOMMENDATION: Routine Screening, Bilateral in 1 year ASSESSMENT: ACR BI-RADS 2 - BENIGN FINDING(S) Ordered By: MARICRUZ CHEN Interpreted By: Alistair Polo MD, 07/14/2023 4:09 PM Maricruz Chen MD MAMMO Final Result from Last 3 Months or Most Recently Relevant to Health Maintenance Insurance Advance Directives * Full Code (Latest Code Status on File) Date Activated Date Inactivated Comments 01/24/2020 8:51 AM 01/24/2020 1:22 PM Care Teams Farm Helper Relationship Specialty Start Date End Date Jaime Moran MD [address] [place] [address] PCP - General INTERNAL MEDICINE 12/12/19 Hansel Rosas MD [address] [place] [address] [place] Ne[place] Sign Servicer CARDIOVASCULAR DISEASE 12/12/19
--- OUTSIDE RECORDS SUMMARY | 2024-07-02 06:42 | XMS_ITS | Encounter Summary ---
Author Name [facility] [place] Organization [facility] [place] [facility] [place] Address [address] [place] [address] Care Team Providers Care Counselor At Law Name Role Phone RIAZ LUTHER Primary Care [...] section includes the information on record at [place] for the Encounter. Date/Time Encounter Type Encounter Description Reason Provider Source Nov 17, 2023 09:00 AM THER FILIPE BROOKS ADDL 15 MIN SPEECH-LANGUAGE PATHOLOGY ICD-10-CM R41.840 Attention and concentration deficit ALBERT DEGROOT Arabella Encounter Template Text not used by [place] Assessments - Encounter Diagnoses This section includes the primary and secondary diagnoses documented for the Encounter. Date/Time Primary/Secondary Diagnosis Diagnosis Name Provider Source Nov 17, 2023 01:31 PM PRIMARY Attention and concentration deficit AL[facility]ERT DEGROOT [place] [facility] Plan of Treatment: Future Appointments (+ [...] 20 appointments. The data comes from all [place] treatment facilities. Appointment Date/Time Appointment Type Appointme nt Facility Name Dec 01, 2023 09:00 AM AMBULATORY - NONE [facility] Dec 15, 2023 09:00 AM AMBULATORY - NONE [facility] Dec 21, 2023 01:00 PM [facility] Dec 22, 2023 08:00 AM AMBULATORY - PS[facility]CH[facility]ATRY [facility] Jan 05, 2024 08:00 AM AMBULATORY - PS[facility]CHIATRY [facility] Jan 12, 2024 09:00 AM AMBULATORY - NONE [facility] Jan 19, 2024 08:00 AM AMBULATORY - [...] 09:00 AM AMBULATORY - PSYCHIATRY [facility] Encounter Notes: All associated encounter notes This section contains the clinical notes associated to the Encounter. Date/Time Encounter Note(s) Provider Source Nov 17, 2023 09:21 AM SPEECH PATHOLOGY N OTE: LOCAL TITLE: SPEECH PATHOLOGY/DAILY PROGRESS NOTE STANDARD TITLE: SPEECH PATHOLOGY NOTE DATE OF NOTE: NOV 17, 2023@09:21 ENTRY DATE: NOV 17, 2023@09:21:42 AUTHOR: ALBERT DEGROOT EXP COSIGNER: URGENCY: STATUS: COMPLETED VISIT #: 3 ONSET OF PROBLEM: consult dated 10/01/2023 PLAN ESTABLISHED: 10/20/2023 REFERRING PROVIDER: Dr. Oconnell (polytrauma clinic) Diagnosis: Attention and concentration deficit Visit conducted by synchronous video telehealth; patient verbal consent obtained. Location and emergency number confirmed. Participants: , PRODUCT MANAGEMENT SPECIALIST S: Ms. Rondon is a 43 year old female who presents to speech pathology clinic via [facility] this date, 11/17/2023, with chief complaints of: challenges with memory, remembering major events, struggling for words. The 's last name and last 4 of social security number were verified upon entry into the speech pathology virtual conference room. The arrived unaccompanied to the session. The is a primary Monegasque speaker, and the session was conducted in Monegasque. No interior design faculty member required. The also reported the following: She feels things are going pretty good. She has been trying to ensure she updates her items each day, but has had a difficult time managing the project information/tasks that come in all at the same time that she is trying to get updates done. O: Cognitive communication therapy was conducted with the in order to address her concerns for her memory and word finding difficulty. PRODUCT MANAGEMENT SPECIALIST and had clinical discussion on examples of the 's challenges and how they impact her day to day life. Strategies suggested: For work: Set a boundary/cut off time that you will address project list items for each day. Set a specific time of day you will update your own items. Create a workflow or to-do list using your flagged emails to remind you of unaddressed project tasks. For home: Reviewed LEAP Strategy and how to implement into daily life. A: The presents with attention and concentration [...] to biweekly (depending on 's availability) for 4-6 more weeks to address the following goals: [...] (ongoing - progressing). Time spent with : 60 minutes /es/ ALBERT DEGROOT Speech Language Pathologist Signed: 11/17/2023 13:31 ALBERT DEGROOT [facility]
--- OUTSIDE RECORDS SUMMARY | 2024-07-02 06:42 | XMS_ITS | Referral Summary ---
Author Organization [facility] Address [address] [place] [address] Care Team Providers Care Customer Service Associate Name Role Phone Jaime Moran MD Primary Care Provider [phone] Allergies Active Allergy Reactions Criticality Noted Date [...] daily 90 capsule 3 4 Active rizatriptan FIRE PREVENTION SPECIALIST (MAXALT-FIRE PREVENTION SPECIALIST) 10 mg disintegrating tabletIndications:M igraine Take 1 [...] Quadrivalent, Split, Intramuscular MMR 11/07/2013 Tdap 08/31/2013 Social History Tobacco Use Types Packs/Day Years [...] PM CDT Sexual Orientation Not on file Last Filed Vital Signs [...] 10/27/2023 3:23 PM CDT Plan of Treatment Not on file Insurance [facility] [employer] [facility] [employer] [employer] [facility] [employer] [employer] Care Teams Customer Service Associate Relationship Specialty Start Date End Date Jaime Moran MD PCP - General 04/06/20
== END 2024-07-02 06:39 | disposition home or self-care (01) ==
PROVIDERS: PCP Internal Medicine; Visit Provider Internal Medicine
DX: H53.9 Unspecified visual disturbance (principal); H57.02 Anisocoria; R51.9 Headache, unspecified
CPT/HCPCS: 70551

== ENCOUNTER 2025-04-22 11:18 | Outpatient (CLI) | payer OTHER, SELFPAY ==
--- NOTE | ~2025-04-22 | MR_ITS ---
EXAMINATION: MR lumbar spine wo con DATE: 04/22/2025 12:55 INDICATION: Low back pain. Fall. TECHNIQUE: Magnetic resonance imaging (MRI) of the lumbar spine was performed without intravenous contrast. COMPARISON: Lumbar spine radiographs 04/22/2025 FINDINGS: Alignment is normal. Vertebral body heights are normal. Intervertebral disc heights are normal. The distal spinal cord signal intensity is normal. The conus medullaris is at L1. The following disc levels are specifically discussed: L1-L2: The disc does not extend beyond the endplate margin. There is mild bilateral facet joint osteoarthritis. There is no neural foraminal stenosis. There is no central canal stenosis. L2-L3: There is a right foraminal protrusion. There is mild bilateral facet joint osteoarthritis. There is mild right neural foraminal stenosis. There is no central canal stenosis. L3-L4: The disc is mildly bulging. There is moderate bilateral facet joint osteoarthritis. There is mild bilateral neural foraminal stenosis. There is no central canal stenosis. L4-L5: The disc is mildly bulging. There is moderate bilateral facet joint osteoarthritis. There is mild bilateral neural foraminal stenosis. There is no central canal stenosis. L5-S1: There is a left foraminal extrusion. There is moderate bilateral facet joint osteoarthritis. There is mild left neural foraminal stenosis. There is no central canal stenosis. IMPRESSION: 1. Mild lumbar spondylosis. Reviewed, dictated and finalized at location E. OPERATIONS ADMINISTRATOR IMPRESSION: 1. Mild lumbar spondylosis.
--- NOTE | ~2025-04-22 | MR_ITS ---
EXAMINATION: MR ankle LT wo con, MR foot LT wo con DATE: 04/22/2025 12:55 INDICATION: Chronic left foot pain post trauma 20 years prior TECHNIQUE: 1. Magnetic resonance imaging (MRI) of the left ankle/hindfoot was performed without intravenous contrast. Sequences included sagittal, coronal, and axial PD-weighted FSE and PD-weighted FS FSE. 2. MRI of the left fore/mid foot was performed without intravenous contrast. Sequences included sagittal T1-weighted FSE, sagittal fluid sensitive FSE STIR, coronal PD-weighted FS FSE, coronal T1-weighted FSE, axial PD-weighted FS FSE, and axial PD-weighted FSE. COMPARISON: None. FINDINGS: Medial ankle ligaments: Deep and superficial deltoid ligaments as well as the spring ligament are normal. Lateral ankle ligaments: The anterior and posterior inferior tibiofibular, anterior and posterior talofibular as well as the calcaneofibular ligaments are normal. Mid and forefoot ligaments: The Lisfranc ligament complex is normal. The collateral ligament complex at the metatarsophalangeal and interphalangeal joints are normal. Tendons: Achilles, medial and lateral flexor as well as the extensor tendons of the foot/ankle are normal. Plantar fascia: Plantar aponeurosis is normal. Bones/other: Bone alignment is normal. There is normal marrow signal throughout with no reactive edema, fracture or pathologic marrow replacing process. There is mild osteoarthritis at the first metatarsophalangeal and several tarsometatarsal and interphalangeal joints. Intrinsic musculature of the foot is normal. The sinus Tarsi and tarsal tunnel are unremarkable. Fluid: Small joint effusion at the first metatarsophalangeal joint. Visualized amount fluid in the remaining joint spaces. No tenosynovitis, bursitis or other abnormal fluid collections. IMPRESSION: 1. 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 Otherwise unremarkable MRI of the left foot and ankle. Reviewed, dictated and finalized at location A. NE PUBLISHER IMPRESSION: 1. 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 Otherwise un remarkable MRI of the left foot and ankle.
--- NOTE | ~2025-04-22 | XR_ITS ---
XR lumbar spine 2-3V 04/22/2025 12:54 Indication: Low back pain Procedure: 3 views lumbar spine Comparison: No prior studies for comparison. Findings: There is disc narrowing at L5-S1. Vertebral body heights are maintained. Pedicles intact. Sacral foramen are symmetric. There is mild facet hypertrophy at L5-S1. Impression: 1: Mild lumbar spondylosis. Reviewed, dictated and finalized at location O. SFER AGENT Impression: 1: Mild lumbar spondylosis.
--- OUTSIDE RECORDS SUMMARY | 2025-04-22 11:21 | XMS_ITS | Clinical Summary ---
Author Organization [facility] Address [address] [place] [address] Care Team Providers Care Pecan Picker Name Role Phone Jaime Moran MD Primary Care Provider Hansel Rosas MD Unavailable [phone] Allergies Active Allergy Reactions Criticality Noted [...] capsule by mouth daily. 3 Active rizatriptan (MAXALT-SENIOR NET APPLICATION DEVELOPER) 10 MG disintegrating tablet Take by mouth as needed. 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 Contusion of right knee, initial encounter 03/31 Sprain of medial collateral ligament of right knee, subsequent encounter 06/16/2022 Patellofemoral pain syndrome of right knee 08/25 Pulmonary hypertension 01/04/2020 Shortness of breath 01/04/2020 H/O: pneumonia 01/04/2020 Palpitations 12/13/2019 H/O syncope 12/13/2019 Nonspecific abnormal electrocardiogram (ECG) (EK G) 12/13/2019 Resolved Problems Problem Noted Date Diagnosed Date Resolved Date Follow-up examination after orthopedic surgery 03/19/2022 06/23/2022 Encounters Date Type Department Care Team Description 03/08/2025 3:06 PM MECHANICAL SPECIALIST - 03/08/2025 11:59 PM MECHANICAL SPECIALIST Hospital Encounter [facility] [address] [place] [address] Rachell Hall, LIFELINE REPRESENTATIVES Discharge Disposition: Home or Self Care (Routine Discharge) 03/08/2025 Travel 02/27/2025 Travel 02/23/2025 4:53 PM CDT - 02/23/2025 11:59 PM CDT Hospital Encounter [facility] [address] [place] [address] Laney Myers NP Discharge Disposition: Home or Self Care (Routine Discharge) 02/23/2025 Travel 02/16/2025 Travel from Last 3 Months Immunizations Immunization Administration Dates Next Due Tdap (Boostrix) 08/08/2023 [...] Information Value Date Recorded Sex Assigned at Female 02/16/2025 3:39 PM CDT Legal Sex Female 9:56 PM CDT Gender [...] 3:53 PM CDT Height 167.6 cm (5' 6) 08/08/2023 3:53 PM CDT Body Mass Index 28.79 08/08/2023 3:53 PM CDT Plan of Treatment Health Maintenance Due Date Last Done Comments Cervical Cancer Screening Pap Smear (Age 30 to 64) Every 3 Years 1981 Annual Physical 1984 Hepatitis C 09/17/1999 HPV Vaccines (1 - 3-dose SCDM series) 2008 Cervical Cancer Screening Pap with HPV Testing (Age 30 to 64) Every 5 Years 09/17/2011 Cervical Cancer Screening with HPV 09/17/2011 PHQ-2 (Physician [place]) 04/27/2024 COVID-19 Vaccine ( season) 2024 02/18/2024, 03/27/2021, 07/27/2020, Additional history exists Influenza Adult (#1) 2025 02/18/2024, 02/27/2023, 01/09/2022, Additional history exists Mammogram Screening 07/19/2026 07/19/2024, 07/14/2023, 06/18/2022 DTaP, Tdap and Td Vaccines (5 - Td or Tdap) 08/07/2033 08/08/2023, 12/15/2022, 08/31/2013, Additional history exists Meningococcal Vaccine Aged Out 08/28/2000 No sushila misa eligible based on patient's age to complete this topic Hepatitis A Vaccines Completed 11/27/2001, 09/05/19 Hepatitis B Vaccines Completed 08/16/2010, 01/05/2010, 11/03/2009 Meningococcal B Vaccine Aged Out No l onger eligible based on patient's age to complete this topic Pneumococcal Vaccine: Pediatrics (0 to 5 Years) and At-Risk Patients (6 to 49 Years) Aged Out No longer eligible based on patient's age to complete this topic RSV Immunizations Under 20 Months Aged Out No longer eligible based on patient's age to complete this topic Medical Devices Implanted Type Area Icing And Glaze Maker Device Identifier Shelf Expiration Date Model / Serial / Lot Mpfl Implant System, Fastthread Screw And Biocompsite Swivelock Anchors Implanted:Qty: 1 on 03/06/2022 by Bogdan Magaña MD at [facility] Right: Knee [employer] [id number] 11/24/2025 [id number]-[id number]- BC / / [id number] Versagfaft 3.5 Tendon Implanted:Qty: 1 on 03/06/2022 by Bogdan Magaña MD at [facility] Right: Knee [employer] 12/21/2024 [id number]-[id number] / [id number] / [id number] Procedures Procedure Name Priority Date/Time Associated Diagnosis Comments XR FOOT SHONA 3V Routine 03/08/2025 3:22 PM MECHANICAL SPECIALIST Pain XR CERV SPINE 3V Routine 02/23/2025 5:13 PM CDT Neck pain MG SCREENING W ALY SHONA DIGI Routine 07/19/2024 11:57 AM CDT Visit for screening mammogram from Last 3 Months or Most Recently Relevant to Health Maintenance Results * XR FOOT SHONA 3V (03/08/2025 3:22 PM MECHANICAL SPECIALIST) Anatomical Region Laterality Modality Foot Radiographic Candy ging 03/09/2025 8:05 AM MECHANICAL SPECIALIST Impressions 03/09/2025 8:07 AM MECHANICAL SPECIALIST IMPRESSION: No significant change. No acute findings. Ordered By: RACHELL HALL Interpreted By: Sanket Basilio MD, 03/09/2025 8:05 AM Narrative 03/09/2025 8:07 AM MECHANICAL SPECIALIST [address] [place] [address] Examination: Right and left foot. Exam time: 1451 hours. Clinical history: Bilateral heel pain. Remote history of injury. Comparison: 10/01/2023. Technique: Three weightbearing views each. Findings: No fracture, dislocation or other acute bony abnormality is identified. No other significant bone or joint abnormality is noted.Incidental os tibiale externum, accessory ossicle, is present bilaterally. The soft tissues are unremarkable. Procedure Note Sanket Basilio MD - 03/09/[address] [place] [address] Examination: Right and left foot. Exam time: 1451 hours. Clinical history: Bilateral heel pain. Remote history of injury. Comparison: 10/01/2023. Technique: Three weightbearing views each. Findings: No fracture, dislocation or other acute bony abnormality isidentified. No other significant bone or joint abnormality isnoted.Incidental os tibiale externum, accessory ossicle, is presentbilaterally. The soft tissues are unremarkable. IMPRESSION: No significant change. No acute findings. Ordered By: RACHELL HALL Interpreted By: Sanket Basilio MD, 03/09/2025 8:05 AM us Rachell Hall LIFELINE REPRESENTATIVES GENERAL IMAGING Final Result * XR CERV SPINE 3V (02/23/2025 5:13 PM CDT) Anatomical Region Laterality Modality Spine Radiographic Candy ging 02/24/2025 7:21 AM CDT Impressions 02/24/2025 7:21 AM CDT IMPRESSION: No acute findings Ordered By: VANESSA QUEEN Interpreted By: Nicho Lanier MD, 02/24/2025 7:21 AM Narrative 02/24/2025 7:21 AM CDT [address] [place] [address] 3 VIEWS OF THE CERVICAL SPINE Clinical History: Pain Comparison: None 3 views of the cervical spine demonstrate the bony elements to be intact. There is no evidence of fracture or dislocation. The vertebral body heights are symmetric and within normal limits. The intervertebral disc heights appear symmetric and normal. The facets are normally aligned. The spinous processes appear normal. The anterior cervical soft tissues are within normal limits. Procedure Note Nicho Lanier MD - 02/24/[address] [place] [address] 3 VIEWS OF THE CERVICAL SPINE Clinical History: Pain Comparison: None 3 views of the cervical spine demonstrate the bony elements to be intact.There is no evidence of fracture or dislocation. The vertebral bodyheights are symmetric and within normal limits. The intervertebral discheights appear symmetric and normal. The facets are normally aligned. Thespinous processes appear normal. The anterior cervical soft tissues arewithin normal limits. IMPRESSION: No acute findings Ordered By: VANESSA QUEEN Interpreted By: Nicho Lanier MD, 02/24/2025 7:21 AM us Vanessa Queen WAREHOUSE UNLOADER-BC GENERAL IMAGING Final R esult * MG SCREENING W ALY SHONA DIGI (07/19/2024 11:57 AM CDT) Anatomical Region Laterality Modality Breast Bilateral Mammography 07/19/2024 12:1 3 PM CDT Impressions 07/19/2024 12:13 PM CDT IMPRESSION: No suspicious change since the previous exams. Recommendation: 1: Routine Screening Bilateral in 1 Year Assessment: ACR BI-RADS 1 - NEGATIVE Ordered By: MARICRUZ CHEN Interpreted By: Sanket Basilio MD, 07/19/2024 12:13 PM Narrative 07/19/2024 12:13 PM CDT [address] [place] [address] Examination: Digital screening mammogram with CAD. Clinical history: Asymptomatic patient presents for routine screening. Comparison: 07/14/2023, 06/18/2022. Technique: Bilateral digital mammograms. The exam was interpreted with the use of a computer-aided detection (CAD) system. Additional 3-D tomosynthesis images were acquired. Tissue density: The breasts are heterogeneously dense which may obscure small masses. Findings: The breast tissue is heterogeneously dense. The dense tissue may obscure some lesions mammographically. No suspicious mass, microcalcification or area of architectural distortion can be identified. From a mammographic standpoint, routine followup in one year would seem adequate. Maricruz Chen MD MAMMO Final Result from Last 3 Months or Most Recently Relevant to Health Maintenance Insurance [facility] AETNA CIGNA Advance Directives * Full Code (Latest Code Status on File) Date Activated Date Inactivated Comments 01/24/2020 8:51 AM 01/24/2020 1:22 PM Care Teams Pecan Picker Relationship Specialty Start Date End Date Jaime Moran MD [address] [place] [address] PCP - General INTERNAL MEDICINE 12/12/19 Hansel Rosas MD [address] [place] [phone] [place] Commercial Crabber CARDIOVASCULAR DISEASE 12/12/19
--- OUTSIDE RECORDS SUMMARY | 2025-04-22 11:21 | XMS_ITS | Clinical Summary ---
Author Organization [facility] Address [address] [place] [address] Care Team Providers Care Sciences Dean Name Role Phone Jaime Moran MD Primary Care Provider [phone] Allergies Active Allergy Reactions Criticality Noted Date [...] mouth 2 (two) times a day Active albuterol HFA (PROVENTIL HFA,VENTOLIN HFA,PROAIR HFA) 90 mcg/actuation inhaler INHALE 1 - 2 PUFFS BY MOUTH EVERY 4 HOURS NEEDED 3 Active rizatriptan VOYAGE MANAGEMENT SYSTEM OPERATOR (MAXALT-VOYAGE MANAGEMENT SYSTEM OPERATOR) 10 mg disintegrating tabletIndications:M igraine Take 1 [...] A DAY 180 tablet [address] (CYMBALTA) 60 mg capsule Take 1 capsule (60 mg total) by mouth daily 5 Active diltiaZEM CD (CARDIZEM CD) 360 mg 24 hr capsuleIndications: Coronary vasospasm TAKE 1 CAPSULE BY MOUTH EVERY DAY 90 capsule 3 5 Active Active Problems Problem Noted Date Diagnosed [...] more drinks on one occasion? Never 08/20/2020 Comments No Sex and Gender Information Value Date Recorded Sex Assigned at Not on file Legal Sex Female 12:34 PM CDT Gender Identity Female 08/24/2020 1:03 PM CDT Sexual Orientation Not on file Last Filed Vital Signs Vital Sign Reading Time Taken Comments Blood Pressure 118/78 11/01/2024 3:07 PM CDT Pulse 75 11/01/2024 3:07 PM CDT Temperature 37.2 C (99 F) 08/20/2020 9:00 AM CDT Respiratory Rate 22 08/20/2020 12:30 PM CDT Oxygen Saturation 99% 11/01/2024 3:07 PM CDT Inhaled Oxygen Concentration - - Weight 83 kg (183 lb) 11/01/2024 3:07 PM CDT Height 171.5 cm (5' 7.5) 11/01/2024 3:07 PM CDT Body Mass Index 28.24 11/01/2024 3:07 PM CDT Plan of Treatment Health Maintenance Due Date Last Done Comments Cervical Cancer Screening 1981 Depression Screening 1981 Hepatitis C Screening 1981 Regular Well Visit/Exam 18-64 09/17/1999 HPV Vaccines (1 - 3-dose SCDM series) 2008 Varicella Vaccines (1 of 2 - 13+ 2-dose series) 12/05/2013 Covid-19 Vaccine ( - season) 2024 03/27/2021, 07/27/2020, 06/29/2020 Influenza Vaccine (#1) 2024 , 02/27/2023, 01/09/2022, Additional history exists Breast Cancer Screening-Mammogram 07/19/2025 07/19/2024, 07/19/2024, 07/14/2023, Additional history exists DTaP/Tdap/Td Vaccine (5 - Td or Tdap) 08/07/2033 08/08/2023, 12/15/2022, 08/31/2013, Additional history exists Hepatitis B Screening Completed 08/16/2010 , 01/05/2010, 11/03/2009 Pneumococcal vaccine <65 Aged Out No longer eligible based on patient's age to complete this topic Insurance [facility] [employer] [employer] Member Subscriber Plan / Payer (Ef fective 2020-Present) Name:Demar Rondon Relation to Subscriber:Self Name:Demar Rondon Payer ID:[id number] Group ID:[id number] Type:CIGNA HMO/PPO Address: [place], [place] [facility] [employer] Care Teams Sciences Dean Relationship Specialty Start Date End Date Jaime Moran MD PCP - General 04/06/20
--- OUTSIDE RECORDS SUMMARY | 2025-04-22 11:21 | XMS_ITS | Encounter Summary ---
Author Organization [facility] Address [facility] [place] [address] Care Team Providers Care Area Plant Manager Name Role Phone Jaime Moran MD Primary Care Provider [phone] Hansel Rosas MD Unavailable [phone] Encounter Details Date Type Department Care Team (Late st Contact Info) Description 01/08/2022 [employer] Solutionst Message Enc [facility] [address], [facility] [address] [place] [address] Bogdan Magaña MD [address] [place], [place] [phone] Visit Follow Up Social History Tobacco Use [...] on file documented as of this encounter Visit Diagnoses Not on filedocumented in this encounter Care Teams Area Plant Manager Relationship Specialty Start Date End Date Jaime Moran MD [address] [place] [phone] PCP - General INTERNAL MEDICINE 12/12/19 Hansel Rosas MD [address] [place] [address] [place] Team Otr Truck Driver CARDIOVASCULAR DISEASE 12/12/19 documented as of this encounter
--- OUTSIDE RECORDS SUMMARY | 2025-04-22 11:21 | XMS_ITS | Encounter Summary ---
Author Organization [facility] Address [address] [place] [address] Phone Care Team Providers Care Pole Peeling Machine Operator Helper Name Role Phone Jaime Moran MD Primary Care Provider [phone] Encounter Details Date Type Department Care Team [...] on filedocumented in this encounter Care Teams Pole Peeling Machine Operator Helper Relationship Specialty Start Date End Date Jaime Moran MD PCP - General 04/06/20 documented as of this encounter
--- OUTSIDE RECORDS SUMMARY | 2025-04-22 11:21 | XMS_ITS | Encounter Summary ---
Author Organization [facility] Address [address] [place] [address] Care Team Providers Care Staff Combat Information Center Officer Name Role Phone Jaime Moran MD Primary Care Provider [phone] Hansel Rosas MD Unavailable [phone] Encounter Details Date Type Department Care Team (Late st Contact Info) Description 08/27/2020 KSE Message Enc [facility] [address] [place] [address] Hansel Rosas MD [address] [place] [address] Follow Up/Update Social History Tobacco [...] on filedocumented in this encounter Care Teams Staff Combat Information Center Officer Relationship Specialty Start Date End Date Jaime Moran MD [address] [place] [phone] PCP - General INTERNAL MEDICINE 12/12/19 Hansel Rosas MD [address] [place] [address] [place] Plant Operations Worker CARDIOVASCULAR DISEASE 12/12/19 documented as of this encounter
--- OUTSIDE RECORDS SUMMARY | 2025-04-22 11:21 | XMS_ITS | Encounter Summary ---
Author Organization [facility] Address [address] [place] [address] Care Team Providers Care Impression Printer Name Role Phone Jaime Moran MD Primary Care Provider [phone] Hansel Rosas MD Unavailable [phone] Encounter Details Date Type Department Care Team (Late st Contact Info) Description 12/22/2019 Abstract [facility] [address] [place] [address] Abstract, Doc Prevea Social History Tobacco Use [...] documented as of this encounter Care Teams Impression Printer Relationship Specialty Start Date End Date Jaime Moran MD [address] [place] [address] PCP - General INTERNAL MEDICINE 12/12/19 Hansel Rosas MD [address] [place] [address] [place] Metal Pourer CARDIOVASCULAR DISEASE 12/12/19 documented as of this encounter
--- OUTSIDE RECORDS SUMMARY | 2025-04-22 11:21 | XMS_ITS | Encounter Summary ---
Author Organization [facility] Address [facility] [place] [address] Care Team Providers Care Highway Painter Helper Name Role Phone Jaime Moran MD Primary Care Provider [phone] Hansel Rosas MD Unavailable [phone] Encounter Details Date Type Department Care Team (Latest Contact Info) Description 09/01/2022 [employer] Medical Message Enc [facility] [address] [place] [address], [facility] [address] [place] [address] Bogdan Magaña MD [address] [place] [address] MRI for right knee Social History Tobacco [...] on filedocumented in this encounter Care Teams Highway Painter Helper Relationship Specialty Start Date End Date Jaime Moran MD [address] [place] [phone] PCP - General INTERNAL MEDICINE 12/12/19 Hansel Rosas MD [address] [place] [address] [place] Ecological Modeler CARDIOVASCULAR DISEASE 12/12/19 documented as of this encounter
--- OUTSIDE RECORDS SUMMARY | 2025-04-22 11:21 | XMS_ITS | Encounter Summary ---
Author Organization [facility] Address [facility] [place] [address] Care Team Providers Care Furnace Charger Name Role Phone Jaime Moran MD Primary Care Provider [phone] Hansel Rosas MD Unavailable [phone] Encounter Details Date Type Department Care Team (Late st Contact Info) Description 10/30/2021 Netlit Message Enc [facility] [address], [facility] [address] [place] [address] Bogdan Magaña MD [address] [place], [place] [phone] Visit Follow Up Social History Tobacco Use [...] on filedocumented in this encounter Care Teams Furnace Charger Relationship Specialty Start Date End Date Jiame Moran MD [address] [place] [phone] PCP - General INTERNAL MEDICINE 12/12/19 Hansel Rosas MD [address] [place] [address] Len[place] Ash Pit Worker CARDIOVASCULAR DISEASE 12/12/19 documented as of this encounter
== END 2025-04-22 11:19 | disposition home or self-care (01) ==
PROVIDERS: PCP Internal Medicine
DX: M54.50 Low back pain, unspecified (principal); M79.672 Pain in left foot; M19.072 Primary osteoarthritis, left ankle and foot; M25.475 Effusion, left foot; M43.06 Spondylolysis, lumbar region
CPT/HCPCS: 72100; 72148; 73718; 73721